=== PATIENT | female | born 1955 | race Caucasian/White ===

== ENCOUNTER 2024-07-26 21:42 | Emergency (ER) | payer OTHER, MEDICAID, SELFPAY ==
[2024-07-26] VITALS (30 sets, daily range): BP systolic 75–102; BP diastolic 46–61; PULSE 96–124; RESP 13–29; TEMP 37.3; O2SAT 92–99; BMI 23.2
--- NOTE | 2024-07-26 22:03 | DI.RAD.S_ITS ---
PROCEDURE: XR CHEST 1V INDICATIONS: chest pain TECHNIQUE: One view of the chest was acquired. COMPARISON: None. FINDINGS: Surgical changes and devices: Sternotomy. Surgical clips project over the mediastinum. Lungs and pleura: Lungs are clear. No pleural effusions or pneumothorax. Mediastinum: Mediastinal contours appear normal. Heart size is cardiomegaly. Bones and chest wall: No suspicious bony lesions. Overlying soft tissues appear unremarkable. IMPRESSION: No acute cardiopulmonary abnormality is seen. Cardiomegaly. Dictated by: Freddie Caruso M.D. on 07/26/2024 at 22:33 Approved by: Freddie Caruso M.D. on 07/26/2024 at 22:33
--- NOTE | 2024-07-26 22:03 | EKG_ITS ---
[place] [address] [address] [place] [id number] Test Date: 2024-07-26 Pat Name: Mone Erazo Department: [facility] Room: Gender: Female Tax Director: CRISTIN : 1955 Requested By: Order Number: [id number] Reading MD: Evens Washington Measurements Intervals [place] Rate: 122 P: 51 [place]: 148 QRS: -31 QRSD: 138 T: 140 QT: 334 QTc: 475 Interpretive Statements Sinus tachycardia Biatrial enlargement Left axis deviation Left ventricular hypertrophy with QRS widening and repolarization abnormality ( R in aVL , Sokolow-Yung , [place] product , [place] ) Electronically Signed On 07-27-2024 7:29:31 PST by Evens Washington
[2024-07-26 22:12] LABS: Add Manual Diff / Slide Review NO; Basophils Absolute Auto 100 /uL (0-100); Basophils Percent Auto 0.8 % (0-2); Eosinophils Absolute Auto 100 /uL (0-450); Hemoglobin 11.3 g/dL (12.0-16.0); INR 1.2 (0.9-1.3); Lymphocytes Absolute Auto 1800 /uL (1100-4500); Lymphocytes Percent Auto 21.2 % (25-40); Mean Corpuscular HGB Conc 30.5 % (30-36); Mean Corpuscular Hemoglobin 23.7 PG (26-34); Mean Corpuscular Volume 77.7 fL (80-100); Monocytes Absolute Auto 600 /uL (0-900); Monocytes Percent Auto 6.5 % (3-14); Neutrophils Absolute Auto 6000 /uL (1500-7000); Neutrophils Percent Auto 70.5 % (50-75); Platelet Count 283 X10^3/uL (150-400); Prothrombin Time 13.1 SECONDS (9.4-12.5); Red Blood Cell Count 4.76 X10^6/uL (4.0-5.2); Red Cell Distribution Width 19.6 % (11.6-14.8); White Blood Cell Count 8.6 X10^3/uL (4.5-11.0)
[2024-07-26 22:14] LABS: PTT Partial Thromboplastin Tim 31 SECONDS (25.1-36.5)
[2024-07-26 22:15] LABS: Alanine Aminotransferase 57 IU/L (<35); Albumin 3.8 g/dL (3.5-5.0); Albumin Globulin Ratio 1.3 (1.0-2.8); Alkaline Phosphatase 98 U/L (38-126); Aspartate Aminotransferase 49 IU/L (14-36); BUN Creatinine Ratio 32.6 (6-22); Bilirubin Total 0.7 mg/dL (0.2-1.3); Blood Urea Nitrogen 28 mg/dL (7-17); Calcium 8.4 mg/dL (8.4-10.2); Carbon Dioxide 27 mmol/L (22-32); Chloride 99 mmol/L (98-107); Creatine Kinase 47 U/L (30-135); Estimated Glomerular Filt Rate > 60 mL/min (>60); Globulin 2.9 g/dL (1.7-4.1); Glucose 179 mg/dL (80-110); HEMOLYSIS 46 (0-50); Lipase 34 U/L (23-300); Magnesium 1.8 mg/dL (1.6-2.3); Potassium 4.4 mmol/L (3.4-5.1); Sodium 130 mmol/L (137-145); Total Protein 6.7 g/dL (6.3-8.2)
[2024-07-26 22:27] LABS: NT-proBNP (BNP-Adult 18+) 14200 pg/mL (<125); Troponin I 0.056 ng/mL (0.01-0.034)
[2024-07-26] MEDS: ASPIRIN 81 MG CHEW TAB 324 MG PO (22:31)
[2024-07-26] MEDS: METOPROLOL TARTRATE 5 MG/5 ML INJ IV (22:34)
[2024-07-26] MEDS: ONDANSETRON 4 MG/2 ML INJ IV (22:45)
--- NOTE | 2024-07-26 22:47 | ED.CHESTPAIN ---
HPI - Chest Pain General Chief Complaint: Chest Pain Stated Complaint: CP Time Seen by Provider: 07/26/24 22:08 Source: EMS Mode of arrival: EMS History of Present Illness HPI narrative: 68-year-old female with history of coronary disease, prior single-vessel bypass in 2010, subsequent PCI to LAD in 2022, systolic heart failure LVEF 15%, history of LV thrombus on Eliquis, list hx of amphetamine use, hypertension, hyperlipidemia, anxiety, depression, bipolar disorder, fibromyalgia, homelessness presents by EMS for chest pain. History obtained from both patient and from medical records obtained from [facility] in [place]. Patient was discharged yesterday from [facility] after admission for chest pain. At time of discharge chart states that [facility] and just says she [facility] be on the street. Patient states that she was in [place] trying to find housing when she felt chest pain and called 911. Records from [facility] show severe ischemic cardiomyopathy, however at most recent admission patient was deemed not to be an interventional candidate, instead is goal-directed medical therapy. Related Data Home Medications Medication Instructions Recorded Confirmed acetaminophen 325 mg tablet 650 mg PO Q6H PRN Pain, Mild 07/26/24 07/26/24 apixaban 5 mg tablet 5 mg PO BID 07/26/24 07/26/24 aspirin 81 mg capsule,delayed 81 mg PO DAILY 07/26/24 07/26/24 release atorvastatin 80 mg tablet 80 mg PO DAILY 07/26/24 07/26/24 buspirone 15 mg tablet 15 mg PO BID 07/26/24 07/26/24 empagliflozin 10 mg tablet 10 mg PO DAILY 07/26/24 07/26/24 magnesium hydroxide 400 mg/5 mL 400 mg PO BEDTIME PRN Constipation 07/26/24 07/26/24 oral suspension nitroglycerin 0.4 mg sublingual 0.4 mg sublingual Q5-15M PRN Chest 07/26/24 07/26/24 tablet Pain nortriptyline 25 mg capsule 50 mg PO BID 07/26/24 07/26/24 omeprazole 20 mg tablet,delayed 20 mg PO DAILY 07/26/24 07/26/24 release ondansetron 4 mg disintegrating 4 mg PO Q6H PRN Nausea 07/26/24 07/26/24 tablet sacubitril 24 mg-valsartan 26 mg 1 tab PO BID 07/26/24 07/26/24 tablet spironolactone 25 mg tablet 25 mg PO DAILY 07/26/24 07/26/24 torsemide 20 mg tablet 80 mg PO DAILY 07/26/24 07/26/24 trazodone 50 mg tablet 100 mg PO BEDTIME PRN Insomnia 07/26/24 07/26/24 venlafaxine 75 mg tablet,extended 225 mg PO DAILY 07/26/24 07/26/24 release 24 hr Allergies Allergy/AdvReac Type Severity Reaction Status Date / Time No Known Drug Allergies Allergy Verified 07/26/24 21:46 Exam Initial Vital Signs Initial Vital Signs: Vital Signs Temperature 99.1 F 07/26/24 21:47 Pulse Rate 121 H 07/26/24 21:47 Respiratory Rate 20 07/26/24 21:47 Blood Pressure 90/61 07/26/24 21:47 Pulse Oximetry 99 07/26/24 21:47 Oxygen Delivery Method Room Air 07/26/24 21:47 Const: Awake, alert, appears chronically unwell Cardiac: tachycardia, regular rhythm RESP: unlabored, clear bilaterally, no wheezing Skin: Warm, Dry, intact, no rashes Neuro: AO x3, CN II-XII grossly intact, moves all extremities Course Orders Ordered: ED Orders 07/26/24 21:40 Complete Blood Count AUTO DIFF Stat Comprehensive Metabolic Panel Stat Lipase Stat Magnesium Stat NT-proBNP (BNP-Adult 18+) Stat PTT Partial Thromboplastin Jarek Stat Prothrombin Time INR Stat Troponin & CK Cardiac Panel Stat 07/26/24 21:55 Consult to CLOSET ORGANIZER - Materials Engineering Technician Stat 07/26/24 22:03 XR chest 1V Stat EKG-12 Lead Stat 07/26/24 23:13 Urine Drug Screen, Rapid Stat 07/27/24 00:15 Troponin I Stat 07/27/24 02:15 Trop I [Troponin I] Stat Discontinued Medications Aspirin (Aspirin 81 Mg Chew Tab) 324 mg PO NOW ONE Stop: 07/26/24 22:04 Last Admin: 07/26/24 22:31 Dose: 324 mg Documented By: KANDY Metoprolol Tartrate (Metoprolol Tartrate 5 Mg/5 Ml Inj) 5 mg IV Q5M [facility] Stop: 07/26/24 22:26 Last Admin: 07/26/24 22:34 Dose: 5 mg Documented By: KANDY Ondansetron HCl (Ondansetron 4 Mg/2 Ml Inj) 4 mg IV NOW ONE Stop: 07/26/24 22:43 Last Admin: 07/26/24 22:45 Dose: 4 mg Documented By: KANDY Vital Signs Vital signs: Vital Signs - 8 hr 07/26/24 21:47 07/26/24 22:31 07/26/24 22:39 Temperature 99.1 F Pulse Rate 121 H 124 H Respiratory Rate 20 29 H Blood Pressure 90/61 95/61 Pulse Oximetry 99 Oxygen Delivery Method Room Air 07/26/24 22:39 07/26/24 22:40 07/26/24 22:40 Temperature Pulse Rate 108 H 105 H Respiratory Rate 29 H 22 Blood Pressure 95/51 L Pulse Oximetry 94 94 Oxygen Delivery Method Room Air Room Air 07/26/24 22:45 07/26/24 22:45 07/26/24 22:47 Temperature Pulse Rate 99 H Respiratory Rate 22 Blood Pressure 86/49 L 79/50 L Pulse Oximetry 92 Oxygen Delivery Method 07/26/24 22:47 07/26/24 22:48 07/26/24 22:48 Temperature Pulse Rate 96 H 96 H Respiratory Rate 22 21 Blood Pressure 80/50 L Pulse Oximetry 97 97 Oxygen Delivery Method 07/26/24 22:50 07/26/24 22:50 07/26/24 22:52 Temperature Pulse Rate 96 H Respiratory Rate 14 Blood Pressure 75/46 L 79/46 L Pulse Oximetry 97 Oxygen Delivery Method 07/26/24 22:52 07/26/24 22:55 07/26/24 22:55 Temperature Pulse Rate 96 H 97 H Respiratory Rate 17 18 Blood Pressure 83/48 L Pulse Oximetry 98 98 Oxygen Delivery Method 07/26/24 22:57 07/26/24 22:57 07/26/24 23:00 Temperature Pulse Rate 97 H Respiratory Rate 13 Blood Pressure 86/51 L 84/53 L Pulse Oximetry 98 Oxygen Delivery Method 07/26/24 23:00 07/26/24 23:03 07/26/24 23:03 Temperature Pulse Rate 97 H 100 H Respiratory Rate 15 16 Blood Pressure 93/52 L Pulse Oximetry 97 96 Oxygen Delivery Method 07/26/24 23:20 07/26/24 23:21 07/26/24 23:21 Temperature Pulse Rate 104 H 104 H Respiratory Rate 15 14 Blood Pressure 90/56 L Pulse Oximetry 98 98 Oxygen Delivery Method 07/26/24 23:23 07/26/24 23:23 07/26/24 23:25 Temperature Pulse Rate 104 H Respiratory Rate 17 Blood Pressure 94/52 L 95/60 Pulse Oximetry 98 Oxygen Delivery Method 07/26/24 23:25 07/26/24 23:28 07/26/24 23:28 Temperature Pulse Rate 104 H 103 H Respiratory Rate 14 21 Blood Pressure 97/57 L Pulse Oximetry 97 99 Oxygen Delivery Method 07/26/24 23:30 07/26/24 23:30 07/26/24 23:33 Temperature Pulse Rate 103 H Respiratory Rate 14 Blood Pressure 98/60 97/61 Pulse Oximetry 98 Oxygen Delivery Method 07/26/24 23:33 07/26/24 23:35 07/26/24 23:35 Temperature Pulse Rate 104 H 104 H Respiratory Rate 18 18 Blood Pressure 98/56 L Pulse Oximetry 97 98 Oxygen Delivery Method 07/26/24 23:38 07/26/24 23:38 07/26/24 23:40 Temperature Pulse Rate 105 H Respiratory Rate 16 Blood Pressure 98/59 L 94/57 L Pulse Oximetry 98 Oxygen Delivery Method 07/26/24 23:40 07/26/24 23:43 07/26/24 23:43 Temperature Pulse Rate 104 H 104 H Respiratory Rate 16 17 Blood Pressure 97/55 L Pulse Oximetry 97 97 Oxygen Delivery Method 07/26/24 23:45 07/26/24 23:45 07/26/24 23:48 Temperature Pulse Rate 106 H Respiratory Rate 22 Blood Pressure 102/56 L 95/60 Pulse Oximetry 96 Oxygen Delivery Method 07/26/24 23:48 07/26/24 23:50 07/26/24 23:50 Temperature Pulse Rate 105 H 105 H Respiratory Rate 14 17 Blood Pressure 99/57 L Pulse Oximetry 98 97 Oxygen Delivery Method 07/26/24 23:53 07/26/24 23:53 07/26/24 23:55 Temperature Pulse Rate 106 H Respiratory Rate 23 Blood Pressure 99/58 L 87/55 L Pulse Oximetry 97 Oxygen Delivery Method 07/26/24 23:55 07/26/24 23:58 07/26/24 23:58 Temperature Pulse Rate 106 H 109 H Respiratory Rate 15 24 Blood Pressure 86/54 L Pulse Oximetry 93 96 Oxygen Delivery Method 07/27/24 00:00 07/27/24 00:03 07/27/24 00:03 Temperature Pulse Rate 109 H 109 H Respiratory Rate 34 H 35 H Blood Pressure 104/63 Pulse Oximetry 95 94 Oxygen Delivery Method 07/27/24 00:05 07/27/24 00:05 07/27/24 00:18 Temperature Pulse Rate 109 H 109 H Respiratory Rate 23 17 Blood Pressure 103/58 L Pulse Oximetry 97 96 Oxygen Delivery Method 07/27/24 00:18 07/27/24 00:30 07/27/24 00:30 Temperature Pulse Rate 109 H Respiratory Rate 19 Blood Pressure 108/59 L 98/56 L Pulse Oximetry 96 Oxygen Delivery Method 07/27/24 00:45 07/27/24 00:45 07/27/24 01:00 Temperature Pulse Rate 109 H 104 H Respiratory Rate 17 16 Blood Pressure 108/60 Pulse Oximetry 95 96 Oxygen Delivery Method Room Air 07/27/24 01:00 07/27/24 01:15 07/27/24 01:15 Temperature Pulse Rate 104 H Respiratory Rate 16 Blood Pressure 106/59 L 104/51 L Pulse Oximetry 93 Oxygen Delivery Method 07/27/24 01:30 07/27/24 01:30 07/27/24 01:45 Temperature Pulse Rate 101 H Respiratory Rate 18 Blood Pressure 94/60 87/65 L Pulse Oximetry 92 Oxygen Delivery Method 07/27/24 01:45 07/27/24 02:00 07/27/24 02:01 Temperature Pulse Rate 101 H 101 H Respiratory Rate 15 20 Blood Pressure 101/57 L Pulse Oximetry 93 93 Oxygen Delivery Method 07/27/24 02:01 07/27/24 02:15 07/27/24 02:15 Temperature Pulse Rate 101 H 102 H Respiratory Rate 14 23 Blood Pressure 98/60 Pulse Oximetry 93 93 Oxygen Delivery Method 07/27/24 02:30 07/27/24 02:31 07/27/24 02:31 Temperature Pulse Rate 102 H 102 H Respiratory Rate 15 16 Blood Pressure 105/56 L Pulse Oximetry 95 96 Oxygen Delivery Method 07/27/24 02:45 07/27/24 02:45 07/27/24 03:00 Temperature Pulse Rate 98 H Respiratory Rate 14 Blood Pressure 100/54 L 89/50 L Pulse Oximetry 95 Oxygen Delivery Method 07/27/24 03:00 Temperature Pulse Rate 97 H Respiratory Rate 14 Blood Pressure Pulse Oximetry 95 Oxygen Delivery Method MDM - Chest Pain Lab Data 07/26/24 21:40 07/26/24 21:40 Labs: Lab Results 07/26/24 07/26/24 07/27/24 Range/Units 21:40 23:13 00:15 WBC 8.6 (4.5-11.0) X10^3/uL RBC 4.76 (4.0-5.2) X10^6/uL Hgb 11.3 L (12.0-16.0) g/dL Hct 37.0 (36-46) % MCV 77.7 L (80-100) fL MCH 23.7 L (26-34) PG MCHC 30.5 (30-36) % RDW 19.6 H (11.6-14.8) % Plt Count 283 (150-400) X10^3/uL Neut % (Auto) 70.5 (50-75) % Lymph % (Auto) 21.2 L (25-40) % [place] % (Auto) 6.5 (3-14) % Eos % (Auto) 1.0 L (2-4) % Baso % (Auto) 0.8 (0-2) % Neut # (Auto) 6000 (1439-9678) /uL Lymph # (Auto) 1800 (8496-4493) /uL [place] # (Auto) 600 (0-900) /uL Eos # (Auto) 100 (0-450) /uL Baso # (Auto) 100 (0-100) /uL PT 13.1 H (9.4-12.5) SECONDS INR 1.2 (0.9-1.3) APTT 31 (25.1-36.5) SECONDS Sodium 130 L (137-145) mmol/L Potassium 4.4 (3.4-5.1) mmol/L Chloride 99 (98-107) mmol/L Carbon Dioxide 27 (22-32) mmol/L BUN 28 H (7-17) mg/dL Creatinine 0.86 (0.52-1.04) mg/dL Estimated GFR > 60 (>60) mL/min BUN/Creatinine Ratio 32.6 H (6-22) Glucose 179 H (80-110) mg/dL Calcium 8.4 (8.4-10.2) mg/dL Magnesium 1.8 (1.6-2.3) mg/dL Total Bilirubin 0.7 (0.2-1.3) mg/dL AST 49 H (14-36) IU/L ALT 57 H (<35) IU/L Alkaline Phosphatase 98 (38-126) U/L Total Creatine Kinase 47 (30-135) U/L Troponin I 0.056 H 0.071 H (0.01-0.034) ng/mL NT-Pro-B Natriuret Pep 89186 H (<125) pg/mL Total Protein 6.7 (6.3-8.2) g/dL Albumin 3.8 (3.5-5.0) g/dL Globulin 2.9 (1.7-4.1) g/dL Albumin/Globulin Ratio 1.3 (1.0-2.8) Lipase 34 (23-300) U/L U Opiates 300ng/mL cut Negative (Negative) Ur Oxycodone Screen Positive H (Negative) Urine Methadone Screen Negative (Negative) Ur Barbiturates Screen Negative (Negative) U Tricyclic Antidepress Positive H (Negative) Ur Phencyclidine Scrn Negative (Negative) Ur Amphetamines Screen Negative (Negative) U Methamphetamines Scrn Negative (Negative) Ur MDMA Scrn (Ecstasy) Negative (Negative) U Benzodiazepines Scrn Negative (Negative) Urine Cocaine Screen Negative (Negative) U Marijuana (THC) Screen Negative (Negative) Urine pH Normal (Normal) Urine Specific [place] Normal (Normal) Ur Creatinine Normal (Normal) 07/27/24 Range/Units 02:15 WBC (4.5-11.0) X10^3/uL RBC (4.0-5.2) X10^6/uL Hgb (12.0-16.0) g/dL Hct (36-46) % MCV (80-100) fL MCH (26-34) PG MCHC (30-36) % RDW (11.6-14.8) % Plt Count (150-400) X10^3/uL Neut % (Auto) (50-75) % Lymph % (Auto) (25-40) % [place] % (Auto) (3-14) % Eos % (Auto) (2-4) % Baso % (Auto) (0-2) % Neut # (Auto) (1514-6266) /uL Lymph # (Auto) (7707-6521) /uL [place] # (Auto) (0-900) /uL Eos # (Auto) (0-450) /uL Baso # (Auto) (0-100) /uL PT (9.4-12.5) SECONDS INR (0.9-1.3) APTT (25.1-36.5) SECONDS Sodium (137-145) mmol/L Potassium (3.4-5.1) mmol/L Chloride (98-107) mmol/L Carbon Dioxide (22-32) mmol/L BUN (7-17) mg/dL Creatinine (0.52-1.04) mg/dL Estimated GFR (>60) mL/min BUN/Creatinine Ratio (6-22) Glucose (80-110) mg/dL Calcium (8.4-10.2) mg/dL Magnesium (1.6-2.3) mg/dL Total Bilirubin (0.2-1.3) mg/dL AST (14-36) IU/L ALT (<35) IU/L Alkaline Phosphatase (38-126) U/L Total Creatine Kinase (30-135) U/L Troponin I 0.063 H (0.01-0.034) ng/mL NT-Pro-B Natriuret Pep (<125) pg/mL Total Protein (6.3-8.2) g/dL Albumin (3.5-5.0) g/dL Globulin (1.7-4.1) g/dL Albumin/Globulin Ratio (1.0-2.8) Lipase (23-300) U/L U Opiates 300ng/mL cut (Negative) Ur Oxycodone Screen (Negative) Urine Methadone Screen (Negative) Ur Barbiturates Screen (Negative) U Tricyclic Antidepress (Negative) Ur Phencyclidine Scrn (Negative) Ur Amphetamines Screen (Negative) U Methamphetamines Scrn (Negative) Ur MDMA Scrn (Ecstasy) (Negative) U Benzodiazepines Scrn (Negative) Urine Cocaine Screen (Negative) U Marijuana (THC) Screen (Negative) Urine pH (Normal) Urine Specific [place] (Normal) Ur Creatinine (Normal) Imaging Data Chest x-ray: Radiologist's Impression: PROCEDURE: XR CHEST 1V INDICATIONS: chest pain TECHNIQUE: One view of the chest was acquired. COMPARISON: None. FINDINGS: Surgical changes and devices: Sternotomy. Surgical clips project over the mediastinum. Lungs and pleura: Lungs are clear. No pleural effusions or pneumothorax. Mediastinum: Mediastinal contours appear normal. Heart size is cardiomegaly. Bones and chest wall: No suspicious bony lesions. Overlying soft tissues appear unremarkable. IMPRESSION: No acute cardiopulmonary abnormality is seen. Cardiomegaly. Dictated by: Freddie Caruso M.D. on 07/26/2024 at 22:33 Approved by: Freddie Caruso M.D. on 07/26/2024 at 22:33 ECG Data Interpretation: Sinus tachycardia at 122 beats per minute. When compared to outside EKG from July 22, 2024 ST depressions in V5 and V6 worse. No STEMI MDM Narrative Medical decision making narrative: Patient presenting for chest pain, just released yesterday from [facility] for chest pain. Records obtained from that hospitalization stay show patient had extensive workup including echocardiogram, Myoview stress test, and multiple imaging studies. It was determined that patient has severe ischemic cardiomyopathy, however due to multiple factors she was not a candidate for any intervention and goal is for maximal medical therapy. During previous hospitalization she was also evaluated for AICD placement, which she refused. At patient's last hospitalization she had high sensitivity troponin of greater than 200, per hour measurements this would be equivalent of greater than 0.2. Patient initially tachycardic on arrival. Concern was for possible underlying atrial fibrillation. Single dose of metoprolol brought heart rate down to closer to 100 beats per minute, this continued to be sinus rhythm without any evidence of atrial fibrillation. EKG shows slightly worsening ST depressions in lateral leads, these improved with rate control. Otherwise no change from previous EKG obtained at [facility] hospitalization. Case discussed with Dr. Sinclair of [facility] Cardiology. Case, vitals, EKG changes, lab work reviewed with business process consultant. Patient is not a candidate for intervention and would not benefit from hospitalization at this time. She should continue on her current medications, no changes advised. Patient monitored for several hours, troponins are stable, hemodynamically unchanged. No signs of volume overload or arrhythmia. Patient's presentation overall is improved compared to her previous hospitalization at [facility]. Patient was advised that she should continue to take all of her previous medications as prescribed. Patient is attempting to find housing in the area Discharge Plan Departure Patient Disposition: Home Clinical Impression: Chest pain, Homelessness unspecified, Heart failure with reduced ejection fraction due to coronary artery disease Instructions: DI for Chest Pain Activity Restrictions/Additional Instructions: Continue all of the medications you were told to take at [facility]. I spoke with the campus recruiting intern that you saw in [place] and there are no interventions to be done at this time. If your symptoms worsen feel free to come back to the ED for repeat evaluation Prescriptions: No Action atorvastatin 80 mg Tablet 80 mg PO DAILY acetaminophen 325 mg Tablet 650 mg PO Q6H PRN (Reason: Pain, Mild) torsemide 20 mg Tablet 80 mg PO DAILY trazodone 50 mg Tablet 100 mg PO BEDTIME PRN (Reason: Insomnia) spironolactone 25 mg Tablet 25 mg PO DAILY aspirin 81 mg Capsule,Delayed Release(Dr/Ec) 81 mg PO DAILY nortriptyline 25 mg Capsule 50 mg PO BID magnesium hydroxide 400 mg/5 mL Suspension 400 mg PO BEDTIME PRN (Reason: Constipation) nitroglycerin 0.4 mg Tablet, Sublingual 0.4 mg SUBLINGUAL Q5-15M PRN (Reason: Chest Pain) Rx Instructions: do not exceed 3 doses per episode ondansetron 4 mg Tablet,Disintegrating 4 mg PO Q6H PRN (Reason: Nausea) buspirone 15 mg Tablet 15 mg PO BID omeprazole 20 mg Tablet,Delayed Release (Dr/Ec) 20 mg PO DAILY venlafaxine 75 mg Tablet Extended Release 24hr 225 mg PO DAILY apixaban 5 mg Tablet 5 mg PO BID empagliflozin 10 mg Tablet 10 mg PO DAILY sacubitril-valsartan 24-26 mg Tablet 1 tab PO BID Stand Alone Forms: Patient Portal/API/Survey
--- NOTE | 2024-07-26 22:49 | PC.NURSE ---
Dr. Cartwright aware of current vital signs.
--- NOTE | 2024-07-26 22:53 | PC.NURSE ---
Dr. Cartwright at bedside
--- NOTE | 2024-07-26 23:23 | PC.NURSE ---
Pt states she feels like she needs to have a bowel movement. Pt assisted to restroom via wheel chair with 1 person assist and stand by. Pt unable to have bm at this time. Assisted back to ED stretcher. Placed on blood pressure, cardiac, resp, and pulse ox monitors with alarms on and audible. Call light within reach.
[2024-07-26 23:35] LABS: UR Morphine/Opiate cutoff 300 Negative (Negative); Ur Creatinine Normal (Normal); Ur Specific Gravity Normal (Normal); Urine Amphetamines Negative (Negative); Urine Barbiturates Negative (Negative); Urine Benzodiazepines Negative (Negative); Urine Cocaine Negative (Negative); Urine MDMA Negative (Negative); Urine Methadone Negative (Negative); Urine Methamphetamines Negative (Negative); Urine Oxycodone Positive (Negative); Urine Phencyclidine Negative (Negative); Urine Tetrahydrocannabinol Negative (Negative); Urine Tricyclic Antidepressant Positive (Negative); Urine pH Normal (Normal)
[2024-07-27] VITALS (17 sets, daily range): BP systolic 87–108; BP diastolic 50–65; PULSE 97–109; RESP 14–35; O2SAT 92–97
--- NOTE | 2024-07-27 00:18 | PC.NURSE ---
Repeat troponin drawn from left AC with 23g butterfly needle without complications.
[2024-07-27 00:43] LABS: Troponin I 0.071 ng/mL (0.01-0.034)
--- NOTE | 2024-07-27 01:01 | PC.NURSE ---
Pt resting quietly with eyes closed, resps even and not labored. No distress noted at this time. Pt remains connected to cardiac, resp, blood pressure, and pulse ox monitors with alarms on and audible. Call light within reach.
[2024-07-27 02:59] LABS: Troponin I 0.063 ng/mL (0.01-0.034)
== END 2024-07-27 03:25 | disposition home or self-care (01) ==
PROVIDERS: Emergency Provider Emergency Medicine
DX: I11.0 Hypertensive heart disease with heart failure (principal); R07.9 Chest pain, unspecified; I50.20 Unspecified systolic (congestive) heart failure; I25.10 Atherosclerotic heart disease of native coronary artery without angina pectoris; Z59.00 Homelessness unspecified; Z95.1 Presence of aortocoronary bypass graft
CPT/HCPCS: 36415; 71045; 80053; 80305; 82550; 83690; 83735; 83880; 84484; 85025; 85610; 85730; 93005; 96374; 96375; 99284; J2405

== ENCOUNTER 2024-08-01 14:56 | Emergency (ER) | payer OTHER, SELFPAY ==
[2024-08-01] VITALS (11 sets, daily range): BP systolic 97–123; BP diastolic 56–76; PULSE 109–127; RESP 16–37; TEMP 36.3–37; O2SAT 95–100; BMI 23.8
--- NOTE | 2024-08-01 17:44 | PC.NURSE ---
Pt states that she is feeling less anxious. Given ice chips and chocolate pudding. a&Ox4.
--- NOTE | 2024-08-01 17:58 | ED_ITS ---
HPI - Anxiety General Chief Complaint: Anxiety Stated Complaint: Anxiety Time Seen by Provider: 08/01/24 17:56 Source: patient Mode of arrival: EMS History of Present Illness HPI narrative: 68-year-old female with severe ischemic cardiomyopathy presents for panic attack. Patient was at [facility] assisted [facility] and states that she ?got into it? with 1 of the RNs at the facility. She states that she got very worked up and could not catch her breath, and felt like she was going to pass out. By the time of my arrival patient has been in the emergency department for several hours and states that she no longer feels anxious and she feels like her breathing is back to normal. Related Data Home Medications Medication Instructions Recorded Confirmed acetaminophen 325 mg tablet 650 mg PO Q6H PRN Pain, Mild 07/26/24 07/26/24 apixaban 5 mg tablet 5 mg PO BID 07/26/24 07/26/24 aspirin 81 mg capsule,delayed 81 mg PO DAILY 07/26/24 07/26/24 release atorvastatin 80 mg tablet 80 mg PO DAILY 07/26/24 07/26/24 buspirone 15 mg tablet 15 mg PO BID 07/26/24 07/26/24 empagliflozin 10 mg tablet 10 mg PO DAILY 07/26/24 07/26/24 magnesium hydroxide 400 mg/5 mL 400 mg PO BEDTIME PRN Constipation 07/26/24 07/26/24 oral suspension nitroglycerin 0.4 mg sublingual 0.4 mg sublingual Q5-15M PRN Chest 07/26/24 07/26/24 tablet Pain nortriptyline 25 mg capsule 50 mg PO BID 07/26/24 07/26/24 omeprazole 20 mg tablet,delayed 20 mg PO DAILY 07/26/24 07/26/24 release ondansetron 4 mg disintegrating 4 mg PO Q6H PRN Nausea 07/26/24 07/26/24 tablet sacubitril 24 mg-valsartan 26 mg 1 tab PO BID 07/26/24 07/26/24 tablet spironolactone 25 mg tablet 25 mg PO DAILY 07/26/24 07/26/24 torsemide 20 mg tablet 80 mg PO DAILY 07/26/24 07/26/24 trazodone 50 mg tablet 100 mg PO BEDTIME PRN Insomnia 12/18/24 12/18/24 venlafaxine 75 mg tablet,extended 225 mg PO DAILY 07/26/24 07/26/24 release 24 hr Allergies Allergy/AdvReac Type Severity Reaction Status Date / Time No Known Drug Allergies Allergy Verified 07/26/24 21:46 Patient History Social History Smoking Status: Former smoker Smoking Status: Former smoker Exam Initial Vital Signs Initial Vital Signs: Vital Signs Pulse Rate 126 H 08/01/24 15:00 Blood Pressure 123/76 08/01/24 15:00 Pulse Oximetry 98 08/01/24 15:00 Const: Awake, alert, frail, no distress, eating chocolate pudding Cardiac:tachycardia, regular rhythm RESP: unlabored, clear bilaterally, no wheezing Skin: Warm, Dry, intact, no rashes Neuro: AO x3, CN II-XII grossly intact, moves all extremities Course Vital Signs Vital signs: Vital Signs - 8 hr 08/01/24 17:30 08/01/24 17:40 08/01/24 17:40 Temperature Pulse Rate 111 H 111 H Respiratory Rate 33 H 37 H Blood Pressure 97/56 L Pulse Oximetry 95 Oxygen Delivery Method 08/01/24 18:52 Temperature 98.6 F Pulse Rate 112 H Respiratory Rate 22 Blood Pressure 97/56 L Pulse Oximetry 100 Oxygen Delivery Method Room Air MDM - Anxiety Differential Diagnosis Differential diagnosis: Likely hyperventilation, panic disorder and acute anxiety MDM Narrative Medical decision making narrative: Panic attack with the shortness of breath. Upon my evaluation patient had been in the emergency department for several hours. She was resting comfortably, she was given ice chips and chocolate pudding. No longer feeling anxious or short of breath. Saturating well on room air. Tachycardia present, patient states that her resting heart rate is usually elevated. She says she is afraid that fluid may be building up again because she hasn't been allowed to weigh herself. patient instructed that she may take an additional dose of her torsemide this evening, however clinically patient appears euvolemic. Discharge Plan Departure Patient Disposition: Home Clinical Impression: Acute anxiety Instructions: DI for Anxiety -- Adult Activity Restrictions/Additional Instructions: Take an extra dose of your water pill tonight before bed. Continue all of your other medications as prescribed Prescriptions: No Action atorvastatin 80 mg Tablet 80 mg PO DAILY acetaminophen 325 mg Tablet 650 mg PO Q6H PRN (Reason: Pain, Mild) torsemide 20 mg Tablet 80 mg PO DAILY trazodone 50 mg Tablet 100 mg PO BEDTIME PRN (Reason: Insomnia) spironolactone 25 mg Tablet 25 mg PO DAILY aspirin 81 mg Capsule,Delayed Release(Dr/Ec) 81 mg PO DAILY nortriptyline 25 mg Capsule 50 mg PO BID magnesium hydroxide 400 mg/5 mL Suspension 400 mg PO BEDTIME PRN (Reason: Constipation) nitroglycerin 0.4 mg Tablet, Sublingual 0.4 mg SUBLINGUAL Q5-15M PRN (Reason: Chest Pain) Rx Instructions: do not exceed 3 doses per episode ondansetron 4 mg Tablet,Disintegrating 4 mg PO Q6H PRN (Reason: Nausea) buspirone 15 mg Tablet 15 mg PO BID omeprazole 20 mg Tablet,Delayed Release (Dr/Ec) 20 mg PO DAILY venlafaxine 75 mg Tablet Extended Release 24hr 225 mg PO DAILY apixaban 5 mg Tablet 5 mg PO BID empagliflozin 10 mg Tablet 10 mg PO DAILY sacubitril-valsartan 24-26 mg Tablet 1 tab PO BID Stand Alone Forms: Patient Portal/API/Survey
== END 2024-08-01 18:54 | disposition home or self-care (01) ==
PROVIDERS: Emergency Provider Emergency Medicine
DX: F41.0 Panic disorder [episodic paroxysmal anxiety] (principal)
CPT/HCPCS: 99281

== ENCOUNTER → 2024-08-23 08:10 | Outpatient (ROUT) | payer OTHER, SELFPAY ==
[2024-08-23 08:40] LABS: BUN Creatinine Ratio 24.3 (6-22); Blood Urea Nitrogen 27 mg/dL (7-17); Carbon Dioxide 30 mmol/L (22-32); Chloride 100 mmol/L (98-107); Estimated Glomerular Filt Rate 54 mL/min (>60); Glucose 98 mg/dL (80-110); HEMOLYSIS < 15 (0-50); Potassium 4.4 mmol/L (3.4-5.1); Sodium 136 mmol/L (137-145)
== END ==
PROVIDERS: Visit Provider Nurse Practitioner
DX: I42.0 Dilated cardiomyopathy (principal); I50.22 Chronic systolic (congestive) heart failure
CPT/HCPCS: 36415; 80048

== ENCOUNTER 2024-09-01 19:59 | Emergency (ER) | payer OTHER, MEDICAID, SELFPAY ==
[2024-09-01] VITALS (11 sets, daily range): BP systolic 92–116; BP diastolic 51–70; PULSE 66–112; RESP 17–40; TEMP 36.9; O2SAT 82–100; BMI 26.9
--- NOTE | 2024-09-01 20:12 | EKG_ITS ---
[facility] [address] [place] [address] Test Date: 2024-09-01 Pat Name: Mone Erazo Department: Room: Gender: Female Linderman Operator: MELODIE : 1955 Requested By: Order Number: [id number] Reading MD: Evens Washington Measurements Intervals [place] Rate: 110 P: 52 HI: 156 QRS: -30 QRSD: 140 T: 135 QT: 374 QTc: 506 Interpretive Statements Sinus tachycardia Right atrial enlargement Left axis deviation Left ventricular hypertrophy with QRS widening and repolarization abnormality ( R in aVL , Sokolow-Yung , Leslie product , Romhilt-S[place] ) Electronically Signed On 09-04-2024 9:41:01 PST by Evens Washington
--- NOTE | 2024-09-01 20:13 | EKG_ITS ---
[facility] [address] [address] [place] [id number] Test Date: 2024-09-01 Pat Name: Mone Erazo Department: Room: Gender: Female Administrative Assistant: MELODIE : 1955 Requested By: Order Number: [id number] Reading MD: Evens Washington Measurements Intervals [place] Rate: 111 P: 38 PA: 144 QRS: -30 QRSD: 140 T: 136 QT: 378 QTc: 514 Interpretive Statements Sinus tachycardia with frequent premature ventricular complexes Left axis deviation Left ventricular hypertrophy with QRS widening and repolarization abnormality ( R in aVL , Sokolow-Yung , Micha product , Romhilt-S[place] ) Electronically Signed On 09-04-2024 9:41:08 PST by Evens Washington
--- NOTE | 2024-09-01 20:27 | DI.RAD.S_ITS ---
PROCEDURE: XR CHEST 1V INDICATIONS: Shortness of breath TECHNIQUE: One view of the chest was acquired. COMPARISON: [facility], CR, XR CHEST 1V, 07/26/2024, 22:05. FINDINGS: Surgical changes and devices: Sternal wires. Lungs and pleura: Lungs are clear. No pleural effusions or pneumothorax. Mediastinum: Mediastinal contours appear normal. Heart size is enlarged. Bones and chest wall: No suspicious bony lesions. Overlying soft tissues appear unremarkable. IMPRESSION: No acute pulmonary process. Dictated by: Melody Anglin M.D. on 09/01/2024 at 21:00 Approved by: Melody Anglin M.D. on 09/01/2024 at 21:00
[2024-09-01 20:42] LABS: Lactate (Lactic Acid) 1.8 mmol/L (0.7-2.1)
[2024-09-01 20:43] LABS: Alanine Aminotransferase 24 IU/L (<35); Albumin 4.4 g/dL (3.5-5.0); Albumin Globulin Ratio 1.4 (1.0-2.8); Alkaline Phosphatase 91 U/L (38-126); Aspartate Aminotransferase 30 IU/L (14-36); BUN Creatinine Ratio 25.8 (6-22); Bilirubin Total 0.5 mg/dL (0.2-1.3); Blood Urea Nitrogen 33 mg/dL (7-17); Carbon Dioxide 29 mmol/L (22-32); Chloride 99 mmol/L (98-107); Estimated Glomerular Filt Rate 46 mL/min (>60); Globulin 3.1 g/dL (1.7-4.1); Glucose 128 mg/dL (80-110); HEMOLYSIS 17 (0-50); Sodium 139 mmol/L (137-145); Total Protein 7.5 g/dL (6.3-8.2)
[2024-09-01 20:49] LABS: Add Manual Diff / Slide Review NO; Basophils Absolute Auto 0 /uL (0-100); Basophils Percent Auto 0.5 % (0-2); Eosinophils Absolute Auto 100 /uL (0-450); Eosinophils Percent Auto 1.9 % (2-4); Hematocrit 40.5 % (36-46); Hemoglobin 12.6 g/dL (12.0-16.0); Lymphocytes Absolute Auto 2100 /uL (1100-4500); Lymphocytes Percent Auto 29.9 % (25-40); Mean Corpuscular HGB Conc 31.2 % (30-36); Mean Corpuscular Hemoglobin 24.2 PG (26-34); Mean Corpuscular Volume 77.7 fL (80-100); Monocytes Absolute Auto 600 /uL (0-900); Monocytes Percent Auto 8.9 % (3-14); Neutrophils Absolute Auto 4200 /uL (1500-7000); Neutrophils Percent Auto 58.8 % (50-75); Platelet Count 307 X10^3/uL (150-400); Red Blood Cell Count 5.21 X10^6/uL (4.0-5.2); Red Cell Distribution Width 19.3 % (11.6-14.8); White Blood Cell Count 7.1 X10^3/uL (4.5-11.0)
[2024-09-01 20:51] LABS: INR 1.2 (0.9-1.3); Prothrombin Time 13.9 SECONDS (9.4-12.5)
[2024-09-01 20:54] LABS: NT-proBNP (BNP-Adult 18+) 7440 pg/mL (<125); Troponin I 0.032 ng/mL (0.01-0.034)
[2024-09-01] MEDS: FUROSEMIDE 40 MG/4 ML VIAL IV (20:59)
--- NOTE | 2024-09-01 21:12 | ED_ITS ---
HPI - SOB/Dyspnea General Chief Complaint: Shortness of Breath/Dyspnea Stated Complaint: SOB x1 wk Time Seen by Provider: 09/01/24 20:56 Source: EMS Mode of arrival: EMS History of Present Illness HPI Narrative: 68-year-old female with history of coronary artery disease status post single- vessel stenting 1993 in [place], chronic Eliquis anticoagulation, history of congestive heart failure, reports ejection fraction 10%, followed by [facility] building illuminating engineer, 2 weeks ago seen in the office of Dr. Gallo by MACO Lares, when her Entresto dose was increased, with follow up plan to be seen in clinic again November 2024, current resident at [facility] to ensure her medications given on a regular basis, however she had missed a few days of torsemide at facility when her medication refill supply had not arrived to her care facility, feeling more short of breath today. Denies chest pain. Denies nausea or vomiting. Denies diaphoresis. No fevers, cough, chills, urinary frequency, abdominal discomfort. Social history: No longer homeless, current lead residing [facility] [place] Related Data Home Medications Medication Instructions Recorded Confirmed acetaminophen 325 mg tablet 650 mg PO Q6H PRN Pain, Mild 07/26/24 07/26/24 apixaban 5 mg tablet 5 mg PO BID 07/26/24 07/26/24 aspirin 81 mg capsule,delayed 81 mg PO DAILY 07/26/24 07/26/24 release atorvastatin 80 mg tablet 80 mg PO DAILY 07/26/24 07/26/24 buspirone 15 mg tablet 15 mg PO BID 07/26/24 07/26/24 empagliflozin 10 mg tablet 10 mg PO DAILY 07/26/24 07/26/24 magnesium hydroxide 400 mg/5 mL 400 mg PO BEDTIME PRN Constipation 07/26/24 07/26/24 oral suspension nitroglycerin 0.4 mg sublingual 0.4 mg sublingual Q5-15M PRN Chest 07/26/24 07/26/24 tablet Pain nortriptyline 25 mg capsule 50 mg PO BID 07/26/24 07/26/24 omeprazole 20 mg tablet,delayed 20 mg PO DAILY 07/26/24 07/26/24 release ondansetron 4 mg disintegrating 4 mg PO Q6H PRN Nausea 07/26/24 07/26/24 tablet sacubitril 24 mg-valsartan 26 mg 1 tab PO BID 07/26/24 07/26/24 tablet spironolactone 25 mg tablet 25 mg PO DAILY 07/26/24 07/26/24 torsemide 20 mg tablet 80 mg PO DAILY 07/26/24 07/26/24 trazodone 50 mg tablet 100 mg PO BEDTIME PRN Insomnia 07/26/24 07/26/24 venlafaxine 75 mg tablet,extended 225 mg PO DAILY 07/26/24 07/26/24 release 24 hr Allergies Allergy/AdvReac Type Severity Reaction Status Date / Time No Known Drug Allergies Allergy Verified 07/26/24 21:46 Patient History Social History Smoking Status: Former smoker Smoking Status: Former smoker Exam Narrative Exam Narrative: GENERAL: Well-developed patient, in mild distress. HEAD: Atraumatic. Normocephalic. EYES: Pupils equal round and reactive. Extraocular motions intact. No scleral icterus. No injection or drainage. ENT: Nose without bleeding, purulent drainage. Throat without erythema, tonsillar hypertrophy or exudate. Airway patent. NECK: Trachea midline. Non tender CARDIOVASCULAR: Regular rate and rhythm without murmurs, gallops, or rubs. Well-healed sternal scar RESPIRATORY: Clear to auscultation. Breath sounds equal bilaterally. No wheezes, rales, or rhonchi. GASTROINTESTINAL: Abdomen soft, non-tender, nondistended. EXTREMITIES: No edema or joint tenderness. No lower extremity edema present, feet well perfused, warm BACK: Nontender without deformity or crepitance. No flank tenderness. NEURO: AOx3. Motor functions grossly nonfocal SKIN: No rash or erythema of visible areas Initial Vital Signs Initial Vital Signs: Vital Signs Temperature 98.4 F 09/01/24 20:03 Pulse Rate 80 09/01/24 20:03 Respiratory Rate 18 09/01/24 20:03 Blood Pressure 105/51 L 09/01/24 20:03 Pulse Oximetry 100 09/01/24 20:03 Oxygen Delivery Method Room Air 09/01/24 20:03 Course Orders Ordered: ED Orders 09/01/24 20:27 XR chest 1V Stat EKG-12 Lead Stat RT Consult Eval and Treat NOW 09/01/24 20:30 Complete Blood Count AUTO DIFF Stat Comprehensive Metabolic Panel Stat Lactate (Lactic Acid) Stat NT-proBNP (BNP-Adult 18+) Stat Prothrombin Time INR Stat Troponin I Stat Discontinued Medications Furosemide (Furosemide 40 Mg/4 Ml Vial) 40 mg IV NOW ONE Stop: 09/01/24 20:57 Last Admin: 09/01/24 20:59 Dose: 40 mg Documented By: Vital Signs Vital signs: Vital Signs - 8 hr 09/01/24 20:03 09/01/24 20:07 09/01/24 20:08 Temperature 98.4 F Pulse Rate 80 66 Respiratory Rate 18 Blood Pressure 105/51 L 106/51 L Pulse Oximetry 100 87 L Oxygen Delivery Method Room Air 09/01/24 20:08 09/01/24 20:30 09/01/24 20:33 Temperature Pulse Rate 112 H 104 H 105 H Respiratory Rate 20 38 H Blood Pressure Pulse Oximetry 90 L 96 82 L Oxygen Delivery Method 09/01/24 20:33 09/01/24 21:00 09/01/24 21:00 Temperature Pulse Rate 105 H Respiratory Rate 30 H Blood Pressure 103/64 92/51 L Pulse Oximetry 94 Oxygen Delivery Method 09/01/24 21:30 09/01/24 21:30 09/01/24 22:00 Temperature Pulse Rate 105 H 104 H Respiratory Rate 26 H 32 H Blood Pressure 99/57 L Pulse Oximetry 97 94 Oxygen Delivery Method 09/01/24 22:00 09/01/24 22:30 09/01/24 22:30 Temperature Pulse Rate 101 H Respiratory Rate 37 H Blood Pressure 94/63 102/57 L Pulse Oximetry 95 Oxygen Delivery Method 09/01/24 23:00 09/01/24 23:00 09/01/24 23:16 Temperature Pulse Rate 103 H 111 H Respiratory Rate 40 H 17 Blood Pressure 103/59 L Pulse Oximetry 92 96 Oxygen Delivery Method Room Air 09/01/24 23:16 Temperature Pulse Rate Respiratory Rate Blood Pressure 116/70 Pulse Oximetry Oxygen Delivery Method MDM - SOB/Dyspnea Lab Data Attestation: I reviewed the patient's lab results. Lab results narrative: White blood cell count 7100, hemoglobin 12.6, platelets adequate. Basic metabolic panel unremarkable. Liver functions unremarkable. BNP 7448, less than available comparison 99545. Troponin 0.032 low noted. 09/01/24 20:30 09/01/24 20:30 Labs: Lab Results 09/01/24 Range/Units 20:30 WBC 7.1 (4.5-11.0) X10^3/uL RBC 5.21 H (4.0-5.2) X10^6/uL Hgb 12.6 (12.0-16.0) g/dL Hct 40.5 (36-46) % MCV 77.7 L (80-100) fL MCH 24.2 L (26-34) PG MCHC 31.2 (30-36) % RDW 19.3 H (11.6-14.8) % Plt Count 307 (150-400) X10^3/uL Neut % (Auto) 58.8 (50-75) % Lymph % (Auto) 29.9 (25-40) % [place] % (Auto) 8.9 (3-14) % Eos % (Auto) 1.9 L (2-4) % Baso % (Auto) 0.5 (0-2) % Neut # (Auto) 4200 (2621-9966) /uL Lymph # (Auto) 2100 (0509-3464) /uL [place] # (Auto) 600 (0-900) /uL Eos # (Auto) 100 (0-450) /uL Baso # (Auto) 0 (0-100) /uL PT 13.9 H (9.4-12.5) SECONDS INR 1.2 (0.9-1.3) Sodium 139 (137-145) mmol/L Potassium 4.0 (3.4-5.1) mmol/L Chloride 99 (98-107) mmol/L Carbon Dioxide 29 (22-32) mmol/L BUN 33 H (7-17) mg/dL Creatinine 1.28 H (0.52-1.04) mg/dL Estimated GFR 46 L (>60) mL/min BUN/Creatinine Ratio 25.8 H (6-22) Glucose 128 H (80-110) mg/dL Lactate 1.8 (0.7-2.1) mmol/L Calcium 9.0 (8.4-10.2) mg/dL Total Bilirubin 0.5 (0.2-1.3) mg/dL AST 30 (14-36) IU/L ALT 24 (<35) IU/L Alkaline Phosphatase 91 (38-126) U/L Troponin I 0.032 (0.01-0.034) ng/mL NT-Pro-B Natriuret Pep 7440 H (<125) pg/mL Total Protein 7.5 (6.3-8.2) g/dL Albumin 4.4 (3.5-5.0) g/dL Globulin 3.1 (1.7-4.1) g/dL Albumin/Globulin Ratio 1.4 (1.0-2.8) Imaging Data Chest x-ray: Radiologist's Impression: Close Chest X-Ray (Signed) Melody Anglin - 09/01/24 Launch?Image [address] [address] XRay Report Signed Patient: Mone Erazo MR#: [id number] : 1955 Acct:[id number] Age/Sex: 68 / F Date of Service: 09/01/24 Loc: ED Accession Number: [id number] Procedure: XR chest 1V Ordering Provider: Angel Dalal MD PROCEDURE: XR CHEST 1V INDICATIONS: Shortness of breath TECHNIQUE: One view of the chest was acquired. COMPARISON: [facility], , XR CHEST 1V, 07/26/2024, 22:05. FINDINGS: Surgical changes and devices: Sternal wires. Lungs and pleura: Lungs are clear. No pleural effusions or pneumothorax. Mediastinum: Mediastinal contours appear normal. Heart size is enlarged. Bones and chest wall: No suspicious bony lesions. Overlying soft tissues appear unremarkable. IMPRESSION: No acute pulmonary process. Dictated by: Melody Anglin M.D. on 09/01/2024 at 21:00 Approved by: Melody Anglin M.D. on 09/01/2024 at 21:00 ECG Data Attestation: I personally reviewed and interpreted this ECG as follows: Interpretation: Sinus tachycardia with ventricular rate 111. LVH with QRS widening and repolarization abnormality similar to prior comparison study on 07/26/2024. [place] 144, QRS 140, QTC 514. MDM Narrative Medical decision making narrative: 68-year-old female with history of congestive heart failure, reports EF 10%, apparently without AICD or Dfib vest, taking chronic Eliquis anticoagulation, recent missed doses of torsemide that had not been provided to her assisted care facility, feels some shortness of breath. No oxygen requirement, no lower extremity edema obvious, lungs clear, no respiratory distress. Chest radiograph screening study negative. EKG abnormal but unchanged from prior study recent months. Troponin negative. BNP elevated but not as elevated as some measurements in the past. Trial of IV Lasix, frequent urination afterwards, symptomatically improved. Was able to walk around ambulatory flat surface in the emergency department. She would like to return to her [facility] care facility. She will contact her cardiology office on Wednesday to coordinate close follow up care. Return precautions discussed. Discharge Plan Departure Patient Disposition: Home Clinical Impression: Shortness of Breath, History of chronic CHF Activity Restrictions/Additional Instructions: History of congestive heart failure, recent missed doses of oral torsemide at your [facility] care facility, feeling some shortness of breath. EKG abnormal but unchanged from prior comparison. Serum blood testing results reassuring. Chest x-ray no acute changes per Radiology report. IV Lasix given, you urinated subsequently a number of times, and felt some improvement, and less sensation of swelling to the ankles which did not look grossly swollen on my examination. You able to ambulate in the department, improved. Continue your current medication regimen. Call the office of building illuminating engineer Dr. Gallo to discuss earlier follow up appointment from your scheduled November 2024 planned visit. Return here or to the nearest emergency department for any change worsening symptoms or any concerns prior Prescriptions: No Action atorvastatin 80 mg Tablet 80 mg PO DAILY acetaminophen 325 mg Tablet 650 mg PO Q6H PRN (Reason: Pain, Mild) torsemide 20 mg Tablet 80 mg PO DAILY trazodone 50 mg Tablet 100 mg PO BEDTIME PRN (Reason: Insomnia) spironolactone 25 mg Tablet 25 mg PO DAILY aspirin 81 mg Capsule,Delayed Release(Dr/Ec) 81 mg PO DAILY nortriptyline 25 mg Capsule 50 mg PO BID magnesium hydroxide 400 mg/5 mL Suspension 400 mg PO BEDTIME PRN (Reason: Constipation) nitroglycerin 0.4 mg Tablet, Sublingual 0.4 mg SUBLINGUAL Q5-15M PRN (Reason: Chest Pain) Rx Instructions: do not exceed 3 doses per episode ondansetron 4 mg Tablet,Disintegrating 4 mg PO Q6H PRN (Reason: Nausea) buspirone 15 mg Tablet 15 mg PO BID omeprazole 20 mg Tablet,Delayed Release (Dr/Ec) 20 mg PO DAILY venlafaxine 75 mg Tablet Extended Release 24hr 225 mg PO DAILY apixaban 5 mg Tablet 5 mg PO BID empagliflozin 10 mg Tablet 10 mg PO DAILY sacubitril-valsartan 24-26 mg Tablet 1 tab PO BID Referrals: Petros Gallo MD [Physician] - Stand Alone Forms: Patient Portal/API/Survey
--- NOTE | 2024-09-01 23:22 | PC.NURSE ---
pt ambulated from room 7 to room [address] back to room O2 sat @ 87%, pt only able to speak one word at a time able to rest and O2 sat return to normal, Dr Dalal informed with no new orders noted.
== END 2024-09-01 23:27 | disposition home or self-care (01) ==
PROVIDERS: Emergency Provider Emergency Medicine
DX: R06.02 Shortness of breath (principal); Z86.79 Personal history of other diseases of the circulatory system; Z79.01 Long term (current) use of anticoagulants; R00.0 Tachycardia, unspecified
CPT/HCPCS: 71045; 80053; 83605; 83880; 84484; 85025; 85610; 93005; 96374; 99284; J1940

== ENCOUNTER 2024-09-10 20:39 | Emergency (ER) | payer OTHER, MEDICAID, SELFPAY ==
[2024-09-10 20:41] VITALS: BP 103/59; PULSE 113; RESP 18; TEMP 36.3; O2SAT 97; BMI 24.6
--- NOTE | 2024-09-10 23:22 | ED_ITS ---
HPI - Anxiety General Chief Complaint: Anxiety Stated Complaint: anxiety Time Seen by Provider: 09/10/24 20:43 Source: patient and EMS Mode of arrival: EMS History of Present Illness HPI narrative: 68-year-old female with history of ischemic cardiomyopathy, EF 10% presents by EMS from [facility] for anxiety attack. Patient states that she has been out of her venlafaxine for the last 3 days. She states that this is caused her vision to fussy over and her brain to feel anxious. In the ER room patient states that while she was anxious she felt her heart rate go up and she felt short of breath, but now that she has been in the emergency department these have returned to normal and all she has is a slight headache from her panic attack. She was requesting something for anxiety as well as her normal venlafaxine dose. She says that the living facility should get more venlafaxine for her tomorrow, but she needs a dose tonight. Related Data Home Medications Medication Instructions Recorded Confirmed acetaminophen 325 mg tablet 650 mg PO Q6H PRN Pain, Mild 07/26/24 09/08/24 apixaban 5 mg tablet 5 mg PO BID 07/26/24 09/08/24 aspirin 81 mg capsule,delayed 81 mg PO DAILY 07/26/24 09/08/24 release atorvastatin 80 mg tablet 80 mg PO DAILY 07/26/24 09/08/24 buspirone 15 mg tablet 15 mg PO BID 07/26/24 09/08/24 empagliflozin 10 mg tablet 10 mg PO DAILY 07/26/24 09/08/24 magnesium hydroxide 400 mg/5 mL 400 mg PO BEDTIME PRN Constipation 07/26/24 09/08/24 oral suspension nitroglycerin 0.4 mg sublingual 0.4 mg sublingual Q5-15M PRN Chest 07/26/24 09/08/24 tablet Pain nortriptyline 25 mg capsule 50 mg PO BID 07/26/24 09/08/24 omeprazole 20 mg tablet,delayed 20 mg PO DAILY 07/26/24 09/08/24 release ondansetron 4 mg disintegrating 4 mg PO Q6H PRN Nausea 07/26/24 09/08/24 tablet sacubitril 24 mg-valsartan 26 mg 1 tab PO BID 07/26/24 09/08/24 tablet spironolactone 25 mg tablet 25 mg PO DAILY 07/26/24 09/08/24 torsemide 20 mg tablet 80 mg PO DAILY 07/26/24 09/08/24 trazodone 50 mg tablet 100 mg PO BEDTIME PRN Insomnia 07/26/24 09/08/24 venlafaxine 75 mg tablet,extended 225 mg PO DAILY 07/26/24 09/08/24 release 24 hr Previous Rx's Medication Instructions Recorded clotrimazole 1 % topical cream 1 applic topical TID #45 grams 09/08/24 Allergies Allergy/AdvReac Type Severity Reaction Status Date / Time No Known Drug Allergies Allergy Verified 09/08/24 13:20 Patient History Social History Smoking Status: Former smoker Smoking Status: Former smoker Exam Initial Vital Signs Initial Vital Signs: Vital Signs Temperature 97.4 F L 09/10/24 20:41 Pulse Rate 113 H 09/10/24 20:41 Respiratory Rate 18 09/10/24 20:41 Blood Pressure 103/59 L 09/10/24 20:41 Pulse Oximetry 97 09/10/24 20:41 Oxygen Delivery Method Room Air 09/10/24 20:41 Const: Awake, alert, appears chronically unwell Cardiac: Mild tachycardia, regular rhythm RESP: unlabored, clear bilaterally, no wheezing MSK: No edema, full range of motion, pulses equal Skin: Warm, Dry, intact, no rashes Neuro: AO x3, CN II-XII grossly intact, moves all extremities Course Orders Ordered: ED Orders 09/10/24 23:21 EKG-12 Lead Stat Discontinued Medications Acetaminophen (Acetaminophen 325 Mg Tablet) 975 mg PO NOW ONE Stop: 09/10/24 23:22 Last Admin: 09/10/24 23:38 Dose: 975 mg Documented By: SB Lorazepam (Lorazepam 0.5 Mg Tablet) 0.5 mg PO NOW ONE Stop: 09/10/24 23:22 Last Admin: 09/10/24 23:38 Dose: 0.5 mg Documented By: SB Venlafaxine HCl (Venlafaxine Er 75 Mg Cap) 225 mg PO NOW ONE Stop: 09/10/24 23:22 Last Admin: 09/10/24 23:50 Dose: 225 mg Documented By: SB Vital Signs Vital signs: Vital Signs - 8 hr 09/10/24 20:41 09/11/24 00:02 Temperature 97.4 F L Pulse Rate 113 H 104 H Respiratory Rate 18 20 Blood Pressure 103/59 L 121/59 L Pulse Oximetry 97 96 Oxygen Delivery Method Room Air Room Air MDM - Anxiety MDM Narrative Medical decision making narrative: Patient has been out of her venlafaxine for several days and reports having a panic attack at her living facility. In the ER she was calm, cooperative, in no acute distress. Has chronic mild tachycardia with heart rate usually between 100-110 beats per minute. Patient was given a very small p.o. antianxiety medication as well as her usual dose of venlafaxine. Patient also requested a Tylenol for a mild headache, which she states is common for her after getting panic attacks. Discharged back to her facility in stable condition. Discharge Plan Departure Patient Disposition: Home Clinical Impression: Acute anxiety Instructions: DI for Anxiety -- Adult Activity Restrictions/Additional Instructions: Resume taking your venlafaxine tomorrow as regularly prescribed. If you continue to experience anxiety attacks I would recommend talking to a health counselor or a psychiatrist. Prescriptions: No Action clotrimazole 1 % cream 1 applic topical TID Qty: 45 0RF atorvastatin 80 mg Tablet 80 mg PO DAILY acetaminophen 325 mg Tablet 650 mg PO Q6H PRN (Reason: Pain, Mild) torsemide 20 mg Tablet 80 mg PO DAILY trazodone 50 mg Tablet 100 mg PO BEDTIME PRN (Reason: Insomnia) spironolactone 25 mg Tablet 25 mg PO DAILY aspirin 81 mg Capsule,Delayed Release(Dr/Ec) 81 mg PO DAILY nortriptyline 25 mg Capsule 50 mg PO BID magnesium hydroxide 400 mg/5 mL Suspension 400 mg PO BEDTIME PRN (Reason: Constipation) nitroglycerin 0.4 mg Tablet, Sublingual 0.4 mg SUBLINGUAL Q5-15M PRN (Reason: Chest Pain) Rx Instructions: do not exceed 3 doses per episode ondansetron 4 mg Tablet,Disintegrating 4 mg PO Q6H PRN (Reason: Nausea) buspirone 15 mg Tablet 15 mg PO BID omeprazole 20 mg Tablet,Delayed Release (Dr/Ec) 20 mg PO DAILY venlafaxine 75 mg Tablet Extended Release 24hr 225 mg PO DAILY apixaban 5 mg Tablet 5 mg PO BID empagliflozin 10 mg Tablet 10 mg PO DAILY sacubitril-valsartan 24-26 mg Tablet 1 tab PO BID Referrals: Miscellaneous,Doctor, MD [Primary Care Provider] - Stand Alone Forms: Patient Portal/API/Survey
--- NOTE | 2024-09-10 23:35 | EKG_ITS ---
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
[2024-09-10] MEDS: LORazepam 0.5 MG TABLET PO (23:38)
[2024-09-10] MEDS: ACETAMINOPHEN 325 MG TABLET 975 MG PO (23:38)
[2024-09-10] MEDS: VENLAFAXINE ER 75 MG CAP 225 MG PO (23:50)
[2024-09-11 00:02] VITALS: BP 121/59; PULSE 104; RESP 20; O2SAT 96
== END 2024-09-10 23:54 | disposition home or self-care (01) ==
PROVIDERS: Emergency Provider Emergency Medicine
DX: F41.9 Anxiety disorder, unspecified (principal); R00.0 Tachycardia, unspecified; T43.216A Underdosing of selective serotonin and norepinephrine reuptake inhibitors, initial encounter; R51.9 Headache, unspecified; Z86.79 Personal history of other diseases of the circulatory system
CPT/HCPCS: 93005; 99283

== ENCOUNTER → 2024-09-13 08:01 | Outpatient (ROUT) | payer OTHER, MEDICAID, SELFPAY ==
[2024-09-13 08:24] LABS: BUN Creatinine Ratio 35.5 (6-22); Blood Urea Nitrogen 38 mg/dL (7-17); Carbon Dioxide 27 mmol/L (22-32); Chloride 101 mmol/L (98-107); Estimated Glomerular Filt Rate 57 mL/min (>60); Glucose 75 mg/dL (80-110); HEMOLYSIS 28 (0-50); Potassium 4.4 mmol/L (3.4-5.1); Sodium 136 mmol/L (137-145)
== END ==
PROVIDERS: Visit Provider Nurse Practitioner
DX: I42.0 Dilated cardiomyopathy (principal); I50.22 Chronic systolic (congestive) heart failure
CPT/HCPCS: 36415; 80048

== ENCOUNTER 2024-09-26 18:47 | Emergency (ER) | payer OTHER, MEDICAID, SELFPAY ==
[2024-09-26 18:58] VITALS: BP 97/56; PULSE 105; RESP 18; TEMP 36.7; O2SAT 98; BMI 25.4
--- NOTE | 2024-09-26 19:02 | DI.RAD.S_ITS ---
PROCEDURE: XR CHEST 1V INDICATIONS: chest pain TECHNIQUE: One view of the chest was acquired. COMPARISON: [facility], CR, XR CHEST 1 VIEW, 09/17/2024, 19:17. [facility], CR, XR CHEST 1V, 09/01/2024, 20:43. [facility], CR, XR CHEST 1V, 07/26/2024, 22:05. FINDINGS: Surgical changes and devices: Post median sternotomy and CABG. Lungs and pleura: Prominent pulmonary markings. No pleural effusions or pneumothorax. Mediastinum: Mediastinal contours appear normal. Marked cardiomegaly. Bones and chest wall: No suspicious bony lesions. Overlying soft tissues appear unremarkable. IMPRESSION: Suspect pulmonary vasculature engorgement. Marked cardiomegaly. Dictated by: Puneet Eller M.D. on 09/26/2024 at 19:49 Approved by: Puneet Eller M.D. on 09/26/2024 at 19:50
--- NOTE | 2024-09-26 19:02 | EKG_ITS ---
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
[2024-09-26 19:14] LABS: Add Manual Diff / Slide Review NO; Basophils Absolute Auto 100 /uL (0-100); Basophils Percent Auto 0.6 % (0-2); Eosinophils Absolute Auto 500 /uL (0-450); Eosinophils Percent Auto 5.6 % (2-4); Hematocrit 39.2 % (36-46); Hemoglobin 12.2 g/dL (12.0-16.0); Lymphocytes Absolute Auto 1200 /uL (1100-4500); Lymphocytes Percent Auto 13.3 % (25-40); Mean Corpuscular HGB Conc 31.2 % (30-36); Mean Corpuscular Hemoglobin 24.2 PG (26-34); Mean Corpuscular Volume 77.6 fL (80-100); Monocytes Absolute Auto 400 /uL (0-900); Neutrophils Absolute Auto 6700 /uL (1500-7000); Neutrophils Percent Auto 75.5 % (50-75); Platelet Count 327 X10^3/uL (150-400); Red Blood Cell Count 5.05 X10^6/uL (4.0-5.2); Red Cell Distribution Width 18.6 % (11.6-14.8); White Blood Cell Count 8.9 X10^3/uL (4.5-11.0)
[2024-09-26 19:16] LABS: INR 1.3 (0.9-1.3); Prothrombin Time 14.7 SECONDS (9.4-12.5)
[2024-09-26 19:19] LABS: PTT Partial Thromboplastin Tim 36 SECONDS (25.1-36.5)
[2024-09-26 19:22] LABS: Alanine Aminotransferase 49 IU/L (<35); Albumin 4.2 g/dL (3.5-5.0); Albumin Globulin Ratio 1.4 (1.0-2.8); Alkaline Phosphatase 80 U/L (38-126); Aspartate Aminotransferase 36 IU/L (14-36); BUN Creatinine Ratio 18.5 (6-22); Bilirubin Total 0.4 mg/dL (0.2-1.3); Blood Urea Nitrogen 24 mg/dL (7-17); Calcium 9.1 mg/dL (8.4-10.2); Carbon Dioxide 31 mmol/L (22-32); Chloride 102 mmol/L (98-107); Creatine Kinase 81 U/L (30-135); Estimated Glomerular Filt Rate 45 mL/min (>60); Glucose 95 mg/dL (80-110); HEMOLYSIS 44 (0-50); Lipase 261 U/L (23-300); Magnesium 2.1 mg/dL (1.6-2.3); Potassium 4.7 mmol/L (3.4-5.1); Sodium 141 mmol/L (137-145); Total Protein 7.2 g/dL (6.3-8.2)
[2024-09-26 19:33] LABS: NT-proBNP (BNP-Adult 18+) 8160 pg/mL (<125); Troponin I 0.034 ng/mL (0.01-0.034)
[2024-09-26] MEDS: ONDANSETRON 4 MG/2 ML INJ IV (19:35)
[2024-09-26 20:11] VITALS: BP 91/54; PULSE 109; RESP 16; O2SAT 96
[2024-09-26 20:37] VITALS: BP 93/54; PULSE 108; RESP 16; O2SAT 95
[2024-09-26 22:14] VITALS: BP 113/67; PULSE 109; RESP 16; O2SAT 97
[2024-09-26] MEDS: ACETAMINOPHEN 325 MG TABLET 975 MG PO (22:14)
[2024-09-26 23:16] VITALS: BP 100/59; PULSE 111; RESP 16; O2SAT 96
[2024-09-27 00:03] LABS: Troponin I 0.031 ng/mL (0.01-0.034)
== END 2024-09-27 00:36 | disposition left against medical advice (07) ==
PROVIDERS: Emergency Provider Emergency Medicine
DX: R07.9 Chest pain, unspecified (principal); I51.7 Cardiomegaly
CPT/HCPCS: 71045; 80053; 82550; 83690; 83735; 83880; 84484; 85025; 85610; 85730; 93005; 93010; 99284; J2405

== ENCOUNTER → 2024-10-04 08:10 | Outpatient (ROUT) | payer OTHER, MEDICAID, SELFPAY ==
[2024-10-04 09:13] LABS: BUN Creatinine Ratio 28.7 (6-22); Blood Urea Nitrogen 29 mg/dL (7-17); Calcium 8.9 mg/dL (8.4-10.2); Carbon Dioxide 25 mmol/L (22-32); Chloride 103 mmol/L (98-107); Estimated Glomerular Filt Rate > 60 mL/min (>60); Glucose 125 mg/dL (80-110); HEMOLYSIS < 15 (0-50); Potassium 3.5 mmol/L (3.4-5.1); Sodium 137 mmol/L (137-145)
== END ==
PROVIDERS: Visit Provider Nurse Practitioner Gerontology
DX: I50.9 Heart failure, unspecified (principal)
CPT/HCPCS: 36415; 80048

== ENCOUNTER 2024-10-19 20:39 | Observation (INO) | payer OTHER, MEDICAID, SELFPAY ==
--- NOTE | 2024-10-19 20:45 | EKG_ITS ---
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
[2024-10-19 20:56] VITALS: BP 115/66; PULSE 105; RESP 15; TEMP 36.6; O2SAT 98; BMI 25.9
--- NOTE | 2024-10-19 21:37 | DI.RAD.S_ITS ---
PROCEDURE: XR CHEST 1V INDICATIONS: Shortness of breath TECHNIQUE: One view of the chest was acquired. COMPARISON: [facility], CR, XR CHEST 1V, 09/26/2024, 19:04. [facility], CR, XR CHEST 1V, 09/01/2024, 20:43. FINDINGS AND IMPRESSION: Mildly prominent interstitium likely edema in the setting of moderate cardiomegaly. Sternotomy wires and mediastinal surgical changes. No pleural effusions. Degenerative osseous findings and calcific tendinopathy. Dictated by: Richard Caldwell M.D. on 10/19/2024 at 21:57 Approved by: Richard Caldwell M.D. on 10/19/2024 at 21:58
[2024-10-19 21:44] LABS: Add Manual Diff / Slide Review NO; Basophils Absolute Auto 100 /uL (0-100); Basophils Percent Auto 0.6 % (0-2); Eosinophils Absolute Auto 0 /uL (0-450); Eosinophils Percent Auto 0.6 % (2-4); Hematocrit 37.1 % (36-46); Hemoglobin 11.7 g/dL (12.0-16.0); Lymphocytes Absolute Auto 1300 /uL (1100-4500); Lymphocytes Percent Auto 17.1 % (25-40); Mean Corpuscular HGB Conc 31.5 % (30-36); Mean Corpuscular Hemoglobin 23.9 PG (26-34); Mean Corpuscular Volume 76.1 fL (80-100); Monocytes Absolute Auto 500 /uL (0-900); Monocytes Percent Auto 6.1 % (3-14); Neutrophils Absolute Auto 5900 /uL (1500-7000); Neutrophils Percent Auto 75.6 % (50-75); Platelet Count 277 X10^3/uL (150-400); Red Blood Cell Count 4.87 X10^6/uL (4.0-5.2); Red Cell Distribution Width 18.6 % (11.6-14.8); White Blood Cell Count 7.8 X10^3/uL (4.5-11.0)
[2024-10-19 21:46] LABS: INR 2.4 (0.9-1.3); Prothrombin Time 26.1 SECONDS (9.4-12.5)
[2024-10-19 21:50] LABS: Alanine Aminotransferase 36 IU/L (<35); Albumin 4.3 g/dL (3.5-5.0); Albumin Globulin Ratio 1.4 (1.0-2.8); Alkaline Phosphatase 105 U/L (38-126); Aspartate Aminotransferase 44 IU/L (14-36); BUN Creatinine Ratio 23.9 (6-22); Bilirubin Total 0.9 mg/dL (0.2-1.3); Blood Urea Nitrogen 26 mg/dL (7-17); Calcium 9.6 mg/dL (8.4-10.2); Carbon Dioxide 22 mmol/L (22-32); Chloride 102 mmol/L (98-107); Estimated Glomerular Filt Rate 55 mL/min (>60); Glucose 124 mg/dL (80-110); HEMOLYSIS < 15 (0-50); Sodium 134 mmol/L (137-145); Total Protein 7.3 g/dL (6.3-8.2)
[2024-10-19 21:51] LABS: Lactate (Lactic Acid) 2.4 mmol/L (0.7-2.1); Potassium 5.4 mmol/L (3.4-5.1)
[2024-10-19 22:02] LABS: NT-proBNP (BNP-Adult 18+) 18200 pg/mL (<125); Troponin I 0.043 ng/mL (0.01-0.034)
[2024-10-19] MEDS: ONDANSETRON 4 MG/2 ML INJ IV (22:11)
[2024-10-19] MEDS: FUROSEMIDE 40 MG/4 ML VIAL IV (22:11)
--- NOTE | 2024-10-19 22:11 | ED.SOB ---
HPI - SOB/Dyspnea General Chief Complaint: Shortness of Breath/Dyspnea Stated Complaint: CHF Time Seen by Provider: 10/19/24 22:05 Source: patient and EMS Mode of arrival: EMS History of Present Illness HPI Narrative: 69-year-old female with a past medical history of hypertension, ischemic cardiomyopathy with ejection fraction 10% presents with EMS from [facility] for evaluation of shortness of breath. Patient states that she has also been feeling slightly nauseous the whole week. She states that she has been having worsening bilateral lower extremity edema consistent with her known history of CHF she states that she did see her PCP who change some of her medications and has not gotten some of these new medications as well. She states that she was having some chest pain earlier but this has since resolved. Patient was given full-dose aspirin prior to arrival by the facility otherwise patient not complaining of any other symptoms at this time. Patient does take. 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 5.4 but without any peaked T-waves/EKG abnormalities. Given patient with significantly elevated BNP dyspnea with conversation will admit patient for diuresis. Related Data Home Medications Medication Instructions Recorded Confirmed acetaminophen 325 mg tablet 650 mg PO Q6H PRN Pain, Mild 07/26/24 10/19/24 buspirone 15 mg tablet 15 mg PO BID 07/26/24 10/19/24 empagliflozin 10 mg tablet 10 mg PO DAILY 07/26/24 10/19/24 magnesium hydroxide 400 mg/5 mL 400 mg PO BEDTIME PRN Constipation 07/26/24 10/19/24 oral suspension nitroglycerin 0.4 mg sublingual 0.4 mg sublingual Q5-15M PRN Chest 07/26/24 10/19/24 tablet Pain nortriptyline 25 mg capsule 50 mg PO BEDTIME 07/26/24 10/19/24 omeprazole 20 mg tablet,delayed 20 mg PO DAILY 07/26/24 10/19/24 release ondansetron 4 mg disintegrating 4 mg PO Q6H PRN Nausea 07/26/24 10/19/24 tablet spironolactone 25 mg tablet 25 mg PO DAILY 07/26/24 10/19/24 torsemide 20 mg tablet 60 mg PO DAILY 07/26/24 10/19/24 trazodone 50 mg tablet 150 mg PO BEDTIME PRN Insomnia 07/26/24 10/19/24 venlafaxine 75 mg tablet,extended 225 mg PO DAILY 07/26/24 10/19/24 release 24 hr albuterol sulfate 90 mcg/actuation 2 puff inhalation Q4H PRN Wheezing 10/19/24 10/19/24 aerosol inhaler apixaban 5 mg tablet (Eliquis) 5 mg PO BID 10/19/24 10/19/24 aspirin 81 mg tablet,delayed 81 mg PO DAILY 10/19/24 10/19/24 release diclofenac sodium 1 % topical gel 2 g topical QID 10/19/24 10/19/24 sacubitril 24 mg-valsartan 26 mg 1 tab BID 10/19/24 10/19/24 tablet (Entresto) Allergies Allergy/AdvReac Type Severity Reaction Status Date / Time divalproex sodium AdvReac Verified 10/19/24 21:10 [From Depakote] metoprolol AdvReac Nausea Verified 10/19/24 21:10 sertraline [From Zoloft] AdvReac Nausea Verified 10/19/24 21:10 sumatriptan AdvReac Palpitation Verified 10/19/24 21:10 s Review of Systems Review of Systems Narrative: General: Positive weight gain, swelling lower extremity HEENT: Denies headache, eye drainage, eye irritation, head trauma, sore throat, voice change Cardiovascular: Denies any chest pain, palpitations, tachycardia Respiratory: Positive shortness of breath with exertion, denies cough wheeze stridor GI/: Denies any abdominal pain, nausea, vomiting, diarrhea, bright red blood per rectum, melanotic stools, urinary frequency, urinary retention, dysuria, hematuria MSK: Denies any joint pain, muscle pains, swelling Skin: Denies any rashes, lesions, discoloration Neuro: Denies any headache, lightheadedness, dizziness, fainting, weakness Psych: Denies SI/HI Patient History Social History Smoking Status: Former smoker Smoking Status: Former smoker Exam Narrative Exam Narrative: General: Cooperative, comfortable, well-developed, not in acute distress HEENT: Normocephalic, atraumatic, PERRLA, normal sclera, eyelids normal, Neck: Active full range of motion, atraumatic Chest: Normal to inspection, negative crepitus, no overlying erythema ecchymosis Respiratory: Patient dyspneic with conversation, however she is not in acute respiratory distress Cardiology: Regular rate rhythm negative gallop, murmur, rubs GI/: Normal to inspection, soft, nonrigid, no tenderness to palpation, exam deferred MSK: Full range of active range of motion of all 4 extremities, atraumatic Skin: No rashes lesions noted Neuro: Alert awake oriented x3, moves all 4 extremities spontaneously, cranial nerves intact, able to answer all questions appropriately follows commands appropriately Psych: Cooperative, negative suicidal or homicidal ideations Initial Vital Signs Initial Vital Signs: Vital Signs Temperature 97.9 F 10/19/24 20:56 Pulse Rate 105 H 10/19/24 20:56 Respiratory Rate 15 10/19/24 20:56 Blood Pressure 115/66 10/19/24 20:56 Pulse Oximetry 98 10/19/24 20:56 Oxygen Delivery Method Room Air 10/19/24 20:56 Course Orders Ordered: ED Orders 10/19/24 20:45 EKG-12 Lead Routine 10/19/24 21:12 Complete Blood Count AUTO DIFF Stat Comprehensive Metabolic Panel Stat Lactate (Lactic Acid) Stat NT-proBNP (BNP-Adult 18+) Stat Prothrombin Time INR Stat Troponin I Stat 10/19/24 21:37 XR chest 1V Stat EKG-12 Lead Stat Measure peak expiratory flow ONCE RT Consult Eval and Treat NOW 10/19/24 23:15 Trop I [Troponin I] Stat Discontinued Medications Furosemide (Furosemide 40 Mg/4 Ml Vial) 40 mg IV NOW ONE Stop: 10/19/24 22:06 Last Admin: 10/19/24 22:11 Dose: 40 mg Documented By: SHANNAN Ondansetron HCl (Ondansetron 4 Mg/2 Ml Inj) 4 mg IV NOW ONE Stop: 10/19/24 22:06 Last Admin: 10/19/24 22:11 Dose: 4 mg Documented By: SHANNAN Vital Signs Vital signs: Vital Signs - 8 hr 10/19/24 20:56 Temperature 97.9 F Pulse Rate 105 H Respiratory Rate 15 Blood Pressure 115/66 Pulse Oximetry 98 Oxygen Delivery Method Room Air MDM - SOB/Dyspnea Differential Diagnosis Differential diagnosis: Likely congestive heart failure, community acquired pneumonia, asthma with exacerbation and other (Electrolyte abnormality, ACS) Lab Data 10/19/24 21:12 10/19/24 21:12 Labs: Lab Results 10/19/24 Range/Units 21:12 WBC 7.8 (4.5-11.0) X10^3/uL RBC 4.87 (4.0-5.2) X10^6/uL Hgb 11.7 L (12.0-16.0) g/dL Hct 37.1 (36-46) % MCV 76.1 L (80-100) fL MCH 23.9 L (26-34) PG MCHC 31.5 (30-36) % RDW 18.6 H (11.6-14.8) % Plt Count 277 (150-400) X10^3/uL Neut % (Auto) 75.6 H (50-75) % Lymph % (Auto) 17.1 L (25-40) % [place] % (Auto) 6.1 (3-14) % Eos % (Auto) 0.6 L (2-4) % Baso % (Auto) 0.6 (0-2) % Neut # (Auto) 5900 (9069-4325) /uL Lymph # (Auto) 1300 (9058-3301) /uL [place] # (Auto) 500 (0-900) /uL Eos # (Auto) 0 (0-450) /uL Baso # (Auto) 100 (0-100) /uL PT 26.1 H (9.4-12.5) SECONDS INR 2.4 H (0.9-1.3) Sodium 134 L (137-145) mmol/L Potassium 5.4 H (3.4-5.1) mmol/L Chloride 102 (98-107) mmol/L Carbon Dioxide 22 (22-32) mmol/L BUN 26 H (7-17) mg/dL Creatinine 1.09 H (0.52-1.04) mg/dL Estimated GFR 55 L (>60) mL/min BUN/Creatinine Ratio 23.9 H (6-22) Glucose 124 H (80-110) mg/dL Lactate 2.4 H (0.7-2.1) mmol/L Calcium 9.6 (8.4-10.2) mg/dL Total Bilirubin 0.9 (0.2-1.3) mg/dL AST 44 H (14-36) IU/L ALT 36 H (<35) IU/L Alkaline Phosphatase 105 (38-126) U/L Troponin I 0.043 H (0.01-0.034) ng/mL NT-Pro-B Natriuret Pep 93159 H (<125) pg/mL Total Protein 7.3 (6.3-8.2) g/dL Albumin 4.3 (3.5-5.0) g/dL Globulin 3.0 (1.7-4.1) g/dL Albumin/Globulin Ratio 1.4 (1.0-2.8) Imaging Data Chest x-ray: Radiologist's Impression: [address] [address] XRay Report Signed Patient: Mone Erazo MR#: [id number] : 1955 Acct:[id number] Age/Sex: 69 / F Date of Service: 10/19/24 Loc: ED Accession Number: [id number] Procedure: XR chest 1V Ordering Provider: Peter Cooper D.O. PROCEDURE: XR CHEST 1V INDICATIONS: Shortness of breath TECHNIQUE: One view of the chest was acquired. COMPARISON: [facility], CR, XR CHEST 1V, 09/26/2024, 19:04. [facility], CR, XR CHEST 1V, 09/01/2024, 20:43. FINDINGS AND IMPRESSION: Mildly prominent interstitium likely edema in the setting of moderate cardiomegaly. Sternotomy wires and mediastinal surgical changes. No pleural effusions. Degenerative osseous findings and calcific tendinopathy. ECG Data Interpretation: EKG interpreted ED physician sinus tachycardia at 106 beats per minute QTC 499 left axis deviation, occasional PVC noted nonspecific ST changes no STEMI MDM Narrative Medical decision making narrative: Patient is a 69-year-old female with a history of hypertension, ischemic cardiomyopathy with ejection fraction 10%, presents from [facility] for worsening swelling to extremities and shortness of breath. 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 Patient is dyspneic with conversation, patient BNP significantly elevated at 18,200. We will give patient dose of Lasix, chest x-ray with moderate prominent interstitium likely edema in the setting of moderate cardiomegaly but no pleural effusion 2318: The patient's management plan was discussed Dr. Kapadia, who agrees to admit the patient to their service and assumes care of this patient at this time. Full admission orders will be placed by the primary team. Discharge Plan Departure Patient Disposition: Admitted as Observation Clinical Impression: CHF (congestive heart failure) Prescriptions: No Action acetaminophen 325 mg Tablet 650 mg PO Q6H PRN (Reason: Pain, Mild) torsemide 20 mg Tablet 60 mg PO DAILY Rx Instructions: to start this dose tomorrow 10/20/24 trazodone 50 mg Tablet 150 mg PO BEDTIME PRN (Reason: Insomnia) spironolactone 25 mg Tablet 25 mg PO DAILY nortriptyline 25 mg Capsule 50 mg PO BEDTIME magnesium hydroxide 400 mg/5 mL Suspension 400 mg PO BEDTIME PRN (Reason: Constipation) nitroglycerin 0.4 mg Tablet, Sublingual 0.4 mg SUBLINGUAL Q5-15M PRN (Reason: Chest Pain) Rx Instructions: do not exceed 3 doses per episode ondansetron 4 mg Tablet,Disintegrating 4 mg PO Q6H PRN (Reason: Nausea) buspirone 15 mg Tablet 15 mg PO BID omeprazole 20 mg Tablet,Delayed Release (Dr/Ec) 20 mg PO DAILY venlafaxine 75 mg Tablet Extended Release 24hr 225 mg PO DAILY empagliflozin 10 mg Tablet 10 mg PO DAILY sacubitril-valsartan [Entresto] 24-26 mg Tablet 1 tab BID Rx Instructions: just prescribed today 10/19/24 has not started yet aspirin 81 mg tablet,delayed release (DR/EC) 81 mg PO DAILY albuterol sulfate 90 mcg/actuation HFA aerosol inhaler 2 puff inhalation Q4H PRN (Reason: Wheezing) diclofenac sodium 1 % Gel 2 g TOPICAL QID Rx Instructions: apply to single elbow, wrist or hand; for hand includes palm/fingers/back of hand Eliquis 5 mg tablet 5 mg PO BID Referrals: Miscellaneous,Doctor, MD [Primary Care Provider] -
[2024-10-19 23:17] LABS: Reflexed Lactate in 2 Hours Y
[2024-10-19 23:35] LABS: Lactate 2HR (Lactic Acid Rflx) 2.6 mmol/L (0.7-2.1)
--- NOTE | 2024-10-19 23:41 | P.HP_ITS ---
History of Present Illness History of Present Illness Date Patient Seen: 10/19/24 Time Patient Seen: 23:00 Chief complaint: CHF Narrative: 69 y/o resident of [facility], with PMH of ischemic cardiomyopathy and PE, presented with complains on worsening shortness of breath, leg edemas and generalized weakness. She had recent adjustments of cardiac medications but not clear what was changed. She did not change her diet. Diagnosed with CHF exacerbations and placed in observation for controlled diuresis on telemetry monitoring. [facility] Social History Smoking Status: Former smoker Meds Home Medications and Allergies Home Medications Medication Instructions Recorded Confirmed Type acetaminophen 325 mg tablet 650 mg PO Q6H PRN Pain, Mild 07/26/24 10/19/24 History buspirone 15 mg tablet 15 mg PO BID 07/26/24 10/19/24 History empagliflozin 10 mg tablet 10 mg PO DAILY 07/26/24 10/19/24 History magnesium hydroxide 400 mg/5 mL 400 mg PO BEDTIME PRN Constipation 07/26/24 10/19/24 History oral suspension nitroglycerin 0.4 mg sublingual 0.4 mg sublingual Q5-15M PRN Chest 07/26/24 10/19/24 History tablet Pain nortriptyline 25 mg capsule 50 mg PO BEDTIME 07/26/24 10/19/24 History omeprazole 20 mg tablet,delayed 20 mg PO DAILY 07/26/24 10/19/24 History release ondansetron 4 mg disintegrating 4 mg PO Q6H PRN Nausea 07/26/24 10/19/24 History tablet spironolactone 25 mg tablet 25 mg PO DAILY 07/26/24 10/19/24 History torsemide 20 mg tablet 60 mg PO DAILY 07/26/24 10/19/24 History trazodone 50 mg tablet 150 mg PO BEDTIME PRN Insomnia 07/26/24 10/19/24 History venlafaxine 75 mg tablet,extended 225 mg PO DAILY 07/26/24 10/19/24 History release 24 hr albuterol sulfate 90 mcg/actuation 2 puff inhalation Q4H PRN Wheezing 10/19/24 10/19/24 History aerosol inhaler apixaban 5 mg tablet (Eliquis) 5 mg PO BID 10/19/24 10/19/24 History aspirin 81 mg tablet,delayed 81 mg PO DAILY 10/19/24 10/19/24 History release diclofenac sodium 1 % topical gel 2 g topical QID 10/19/24 10/19/24 History sacubitril 24 mg-valsartan 26 mg 1 tab BID 10/19/24 10/19/24 History tablet (Entresto) Allergies Allergy/AdvReac Type Severity Reaction Status Date / Time divalproex sodium AdvReac Verified 10/19/24 21:10 [From Depakote] metoprolol AdvReac Nausea Verified 10/19/24 21:10 sertraline [From Zoloft] AdvReac Nausea Verified 10/19/24 21:10 sumatriptan AdvReac Palpitation Verified 10/19/24 21:10 s Review of Systems Review of Systems Narrative: General - weakness CVS - w/o chest pain. RS - short of breath GI - w/o nausea or pain Exam Vital Signs (past 8 hours): - 10/19/24 20:56 Temperature 97.9 F Pulse Rate 105 H Respiratory Rate 15 Blood Pressure 115/66 Pulse Oximetry 98 Oxygen Delivery Method Room Air Oxygen Delivery Method Room Air Narrative Exam Narrative: General - in no distress HEENT - normocephalic CVS - RRR RS - Objective ECG Impression: Sinus tachycardia 104 with occasional premature ventricular complexes Right atrial enlargement Left axis deviation Imaging Chest x-ray: My impression: Mild pulmonary edema, cardiomegaly Radiologist's impression: Mildly prominent interstitium likely edema in the setting of moderate cardiomegaly. Sternotomy wires and mediastinal surgical changes. No pleural effusions. Labs 10/19/24 21:12 10/19/24 21:12 Labs: Laboratory Results - last 24 hr 10/19/24 10/19/24 21:12 23:13 WBC 7.8 RBC 4.87 Hgb 11.7 L Hct 37.1 MCV 76.1 L MCH 23.9 L MCHC 31.5 RDW 18.6 H Plt Count 277 Neut % (Auto) 75.6 H Lymph % (Auto) 17.1 L [place] % (Auto) 6.1 Eos % (Auto) 0.6 L Baso % (Auto) 0.6 Neut # (Auto) 5900 Lymph # (Auto) 1300 [place] # (Auto) 500 Eos # (Auto) 0 Baso # (Auto) 100 PT 26.1 H INR 2.4 H Sodium 134 L Potassium 5.4 H Chloride 102 Carbon Dioxide 22 BUN 26 H Creatinine 1.09 H Estimated GFR 55 L BUN/Creatinine Ratio 23.9 H Glucose 124 H Lactate 2.4 H 2.6 H Calcium 9.6 Total Bilirubin 0.9 AST 44 H ALT 36 H Alkaline Phosphatase 105 Troponin I 0.043 H NT-Pro-B Natriuret Pep 79044 H Total Protein 7.3 Albumin 4.3 Globulin 3.0 Albumin/Globulin Ratio 1.4 Assessment & Plan Assessment and plan (1) Acute on chronic HFrEF (heart failure with reduced ejection fraction): Status: Acute (2) Depression: Status: Acute (3) Pulmonary embolism: Status: Acute (4) GERD (gastroesophageal reflux disease): Status: Acute Plan Acute on chronic HFrEF / Ischemic cardiomyopathy - Lasix iv - Jardiance - at home on Entresto - Is/Os - BMP monitoring - ASA, prn NTG - w/o angina PE - Eliquis Depression / Anxiety - Effexor, amitriptyline, Trazodone - Buspar GERD - Protonix Time-Based Coding :: [TOTAL MINUTES] spent with patient and on the chart (including review of chart, obtaining history, exam, reviewing outside data, placing orders, documenting exam and treatment plan, and counseling patient) on [DATE].
[2024-10-19 23:48] LABS: Troponin I 0.044 ng/mL (0.01-0.034)
[2024-10-20 00:35] VITALS: BP 116/79; PULSE 117; RESP 17; TEMP 36.3; O2SAT 100
[2024-10-20 00:42] VITALS: BMI 25.4
[2024-10-20] MEDS: FUROSEMIDE 40 MG/4 ML VIAL IV (01:10)
[2024-10-20 01:42] VITALS: O2SAT 98
[2024-10-20] MEDS: ONDANSETRON 4 MG/2 ML INJ IV ×2 (02:40→10:09)
[2024-10-20 03:12] VITALS: BP 93/70; PULSE 103; RESP 17; TEMP 36.2; O2SAT 98
[2024-10-20 04:25] VITALS: BP 103/74; PULSE 101
[2024-10-20] MEDS: NITROGLYCERIN 0.4 MG SL TAB SL (04:25)
[2024-10-20] MEDS: ACETAMINOPHEN 325 MG TABLET 650 MG PO ×2 (04:29→15:11)
--- NOTE | 2024-10-20 04:34 | PC.NURSE ---
0420: Patient complaining of abdominal pain, stating it feels like her chest pain previously. 1 dose of nitro and tylenol given. Hospitalist Dr. Kapadia made aware. EKG taken by Shilpa CALIX. Patient states feeling better and chest pain has relieved. EKG results sent to
--- NOTE | 2024-10-20 04:37 | EKG_ITS ---
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
[2024-10-20 07:32] LABS: Add Manual Diff / Slide Review NO; Basophils Absolute Auto 0 /uL (0-100); Basophils Percent Auto 0.1 % (0-2); Eosinophils Absolute Auto 0 /uL (0-450); Eosinophils Percent Auto 0.1 % (2-4); Hematocrit 35.4 % (36-46); Lymphocytes Absolute Auto 1100 /uL (1100-4500); Lymphocytes Percent Auto 13.9 % (25-40); Mean Corpuscular HGB Conc 31.2 % (30-36); Mean Corpuscular Hemoglobin 23.8 PG (26-34); Mean Corpuscular Volume 76.2 fL (80-100); Monocytes Absolute Auto 700 /uL (0-900); Monocytes Percent Auto 8.4 % (3-14); Neutrophils Absolute Auto 6200 /uL (1500-7000); Neutrophils Percent Auto 77.5 % (50-75); Platelet Count 252 X10^3/uL (150-400); Red Blood Cell Count 4.64 X10^6/uL (4.0-5.2); Red Cell Distribution Width 17.9 % (11.6-14.8)
[2024-10-20 07:47] LABS: BUN Creatinine Ratio 26.1 (6-22); Blood Urea Nitrogen 31 mg/dL (7-17); Calcium 9.2 mg/dL (8.4-10.2); Carbon Dioxide 21 mmol/L (22-32); Chloride 100 mmol/L (98-107); Estimated Glomerular Filt Rate 50 mL/min (>60); Glucose 110 mg/dL (80-110); HEMOLYSIS < 15 (0-50); Potassium 4.8 mmol/L (3.4-5.1); Sodium 135 mmol/L (137-145)
[2024-10-20 07:54] LABS: NT-proBNP (BNP-Adult 18+) 20300 pg/mL (<125)
[2024-10-20 08:00] VITALS: BP 119/62; PULSE 102; RESP 20; TEMP 35.8; O2SAT 96
[2024-10-20 08:51] LABS: Troponin I 0.048 ng/mL (0.01-0.034)
[2024-10-20] MEDS: BUSPIRONE 5 MG TABLET 15 MG PO (08:55)
[2024-10-20] MEDS: PANTOPRAZOLE DR 20 MG TABLET PO (08:56)
[2024-10-20] MEDS: VENLAFAXINE ER 75 MG CAP 225 MG PO (08:56)
[2024-10-20] MEDS: SPIRONOLACTONE 25 MG TABLET PO (08:56)
[2024-10-20] MEDS: APIXABAN 5 MG TABLET PO (08:56)
[2024-10-20] MEDS: ASPIRIN EC 81 MG TABLET PO (08:57)
--- NOTE | 2024-10-20 11:45 | CM.DANOTE ---
Addendum entered by JALEEL Nicholas 10/20/24 14:04: ADD: [facility] transport form completed and faxed. [facility] is picking patient up at 2:30p to take to [facility]. Jacque at [facility] aware, agreeable. Original Note: Initial DCP Assessment Note Pt is a 69 yo female, resident at [facility] in [place], arrives with SOB and generalized weakness. Admitted OBS for further work up and management. PCP: Alexandra Lerma Payer: Radha DIETRICH/ [employer] Reviewed chart, pt discussed in multidisciplinary rounds this morning. Patient is likely to discharge over the next 24 hrs. Met w/patient; patient has been living at [facility] since July 2024, had been living in an apt before that, rent became too much for her to afford. Patient has [employer] which helps with medical and facility care, patient pays a participation amount monthly directly to [facility], [employer] pays the remainder of the cost. [facility] assists with medication management, patient reports she is independent in all other ADLs. Patient's sons Leonardo and Mitchell live in [place]. Plan: Discharge back to [facility] via [facility] transport vs [facility] van vs taxi. JALEEL Pacheco Discharge Planning/Care Management CM Discharge Assessment Start: 10/20/24 11:42 Freq: Status: Active Protocol: Document 10/20/24 11:42 ARMAND (Rec: 10/20/24 11:45 ARMAND [id number]) Discharge Planning Assessment Assigned Recycling Assistant JALEEL Talbot DPOA/Assigned Designee Name Mitchell Astorga son P [phone] ([place]) Advance Directives? Yes Advance Directives on File Yes History Provided By Patient,Medical Record Prior Living Arrangements Assisted Living Household Members other Type of transporation used prior to Relies on Others admit Independent with ADL's Yes Is patient alert and oriented? Yes Needs Assistance With Managing Medications Barriers to Discharge No Comment Return to [facility] Discharge Plan Assisted Living Facility Transportation Arrangement [facility] transport vs taxi vs [facility] van Referrals Initiated None needed
--- NOTE | 2024-10-20 11:57 | PM.DS.1 ---
History of Present Illness History of Present Illness Date Patient Seen: 10/20/24 Time Patient Seen: 23:00 Chief complaint: CHF Narrative: Per admitting provider, 69 y/o resident of [facility], with PMH of ischemic cardiomyopathy and PE, presented with complains on worsening shortness of breath, leg edemas and generalized weakness. She had recent adjustments of cardiac medications but not clear what was changed. She did not change her diet. Diagnosed with CHF exacerbations and placed in observation for controlled diuresis on telemetry monitoring. Discharge Providers Provider Date of admission: 10/19/24 23:21 Discharge Date: 10/20/24 Primary care physician: Doctor Mccullough, Discharge provider: Peter Andrade DO Summary Hospital Course Discharge Diagnosis: 1. Acute on chronic systolic heart failure 2. CAD, chronic 3. LV thrombus 4. Hypertension, chronic 5. Hyperlipidemia, chronic # SVT/ST - Zio patch 04/07/2023 sinus tachycardia average rate 107 bpm rare NSVT longest 8 beats length. PACs, 2.2% burden # Tobacco use (stopped 01/18/24) # Anxiety/depression, bipolar, on BuSpar, Effexor, trazodone, and nortriptyline # ADD, on Adderall # Fibromyalgia # Memory loss Hospital Course: This is a 69-year-old female with a past medical history of ischemic cardiomyopathy with an EF of approximately 15%, prior left ventricular thrombus on apixaban, hypertension, hyperlipidemia, anxiety depression, history of SVT, fibromyalgia who presented to the emergency room from her assisted living facility with shortness of breath after being evaluated by her palliative medicine physician earlier in the day. Per cardiology notes that were reviewed they recommended to reduce her Entresto and increase torsemide to 60 mg daily. She also did complain of chest pain which did improve over the course of her stay. Cardiology notes also recommended cessation of her atorvastatin and metoprolol given prior history of bradycardia. She is noted to have a chronic tachycardia per their documentation as well. In the emergency room, the patient was diuresed with IV furosemide. Upon my evaluation the patient was not hypoxic, had minimal leg edema, and reported that she had not tried an increased dose of torsemide. Her chest pain had improved after diuresis. She is scheduled for follow-up with her Cardiology group for an AICD placement in the next month, and the patient discussed also possible balloon pump at that time though I do not see this documented in her outpatient records. Given lack of hypoxia or leg edema, patient was safe to resume torsemide at her assisted living facility with the above changes to her home medications that had already been ordered but not implemented. Recommend continued monitoring of daily weights and follow up with outpatient Cardiology as previously scheduled, and as needed depending on her weights for possible adjustment in torsemide dosing or alternative diuresis. I have copied the cardiology assessment for ease of information transfer into the patient's chart from her cardiology note. # Mixed picture cardiomyopathy, ischemic & possible takotsubo, chronic HFrEF, NYHA II-III -echo 03/16/2024: LVEF 14% with severe dilation with mild LVH and with regional WMA, LV thrombus, mild RV hypokinesis, mild MR, moderate TR, PASP 47 mmHg with CVP 15 -echo 06/19/24: LVEF 13% with severe dilation -no BB secondary to low BP, bradycardia LVEF <10% Marked LVE 09/2024 LBBB # Coronary artery disease -CABG with MCGREGOR to LAD 09/15/1995 [place], [place] -Cath 07/2011 showed stable anatomy with widely patent MCGREGOR graft to the distal LAD with moderate circumflex disease and mild to moderate right coronary narrowings at that time. -NSTEMI, coronary angiogram 10/08/2022: patent MCGREGOR-LAD graft out competed in the mid LAD by the chenega vessel but provided excellent flow to distal LAD and wraparound apex; JASON to the focal severe stenosis of the mid circumflex. RCA with diffuse mild luminal irregularity proximal and mid junction and smooth 50% stenosis mid vessel -Cardiac stress MR 05/24/23: Severe LV dilation, LVEF 21%, no focal wall motion abnormalities, dyskinesis of the entire septum and inferior segments and myocardial thinning consistent with nonviable infarct, no evidence of ischemia on perfusion images, normal RVEF of 53%, minimal delayed enhancement due to blood pooling artifact and thin myocardium, high risk study due to reduced EF and large nonviable infarct -MPS 07/21/24: infarct with minimal ischemia, SSS24, SDS 2 # LV thrombus, on apixaban # Hypertension # Hyperlipidemia Time Spent with Patient Time spent: Greater than 30 minutes Exam Vital Signs (past 8 hours): - 10/20/24 04:25 10/20/24 08:00 Temperature 96.5 F L Pulse Rate 101 H 102 H Respiratory Rate 20 Blood Pressure 103/74 119/62 Pulse Oximetry 96 Oxygen Flow Rate 0 Oxygen Delivery Method Room Air Oxygen Flow Rate 0 Narrative Exam Narrative: Gen: Alert, no acute distress CV: RRR no m/r/g Pulm: CTA b/l Abd: S NT ND Ext: trace pretibial edema b/l LE Objective Labs 10/20/24 06:50 10/20/24 06:50 Labs: Laboratory Results - last 24 hr 10/19/24 10/19/24 10/20/24 21:12 23:13 06:50 WBC 7.8 8.0 RBC 4.87 4.64 Hgb 11.7 L 11.0 L Hct 37.1 35.4 L MCV 76.1 L 76.2 L MCH 23.9 L 23.8 L MCHC 31.5 31.2 RDW 18.6 H 17.9 H Plt Count 277 252 Neut % (Auto) 75.6 H 77.5 H Lymph % (Auto) 17.1 L 13.9 L [place] % (Auto) 6.1 8.4 Eos % (Auto) 0.6 L 0.1 L Baso % (Auto) 0.6 0.1 Neut # (Auto) 5900 6200 Lymph # (Auto) 1300 1100 [place] # (Auto) 500 700 Eos # (Auto) 0 0 Baso # (Auto) 100 0 PT 26.1 H INR 2.4 H Sodium 134 L 135 L Potassium 5.4 H 4.8 Chloride 102 100 Carbon Dioxide 22 21 L BUN 26 H 31 H Creatinine 1.09 H 1.19 H Estimated GFR 55 L 50 L BUN/Creatinine Ratio 23.9 H 26.1 H Glucose 124 H 110 Lactate 2.4 H 2.6 H Calcium 9.6 9.2 Total Bilirubin 0.9 AST 44 H ALT 36 H Alkaline Phosphatase 105 Troponin I 0.043 H 0.044 H 0.048 H NT-Pro-B Natriuret Pep 15024 H 20294 H Total Protein 7.3 Albumin 4.3 Globulin 3.0 Albumin/Globulin Ratio 1.4 PFSH Social History household members: other Smoking Status: Former smoker Discharge Plan Discharge Plan Patient Disposition: Home Transfer to: [facility] Provider Discharge Comment: Patient with ischemic cardiomyopathy admitted for mild CHF exacerbation. Stable for discharge home. Since palliative medicine physician just recommended increase to 60 mg of torsemide along with drop in entresto, and patient did not take increased dose of torsemide prior to admission, agree with discharge on 60 mg at this time. Continue to watch daily weights, reach out to cardiology for continued medication adjustments. She has follow up on 11/07. Has ICD planned for 11/20 at [facility]. Discharge orders & Medications Prescriptions: Continued acetaminophen 325 mg Tablet 650 mg PO Q6H PRN (Reason: Pain, Mild) torsemide 20 mg Tablet 60 mg PO DAILY Rx Instructions: to start this dose tomorrow 10/20/24 trazodone 50 mg Tablet 150 mg PO BEDTIME PRN (Reason: Insomnia) spironolactone 25 mg Tablet 25 mg PO DAILY nortriptyline 25 mg Capsule 50 mg PO BEDTIME magnesium hydroxide 400 mg/5 mL Suspension 400 mg PO BEDTIME PRN (Reason: Constipation) nitroglycerin 0.4 mg Tablet, Sublingual 0.4 mg SUBLINGUAL Q5-15M PRN (Reason: Chest Pain) Rx Instructions: do not exceed 3 doses per episode ondansetron 4 mg Tablet,Disintegrating 4 mg PO Q6H PRN (Reason: Nausea) buspirone 15 mg Tablet 15 mg PO BID omeprazole 20 mg Tablet,Delayed Release (Dr/Ec) 20 mg PO DAILY venlafaxine 75 mg Tablet Extended Release 24hr 225 mg PO DAILY empagliflozin 10 mg Tablet 10 mg PO DAILY sacubitril-valsartan [Entresto] 24-26 mg Tablet 1 tab BID Rx Instructions: just prescribed today 10/19/24 has not started yet aspirin 81 mg tablet,delayed release (DR/EC) 81 mg PO DAILY albuterol sulfate 90 mcg/actuation HFA aerosol inhaler 2 puff inhalation Q4H PRN (Reason: Wheezing) diclofenac sodium 1 % Gel 2 g TOPICAL QID Rx Instructions: apply to single elbow, wrist or hand; for hand includes palm/fingers/back of hand Eliquis 5 mg tablet 5 mg PO BID Follow up/Referrals: Miscellaneous,Doctor, MD [Primary Care Provider] - Diet/Activity/Treatments Diet: Diet as Tolerated and Low-sodium Activity: No restrictions. Visit Report/Discharge Packet Instructions: Heart Failure, How to Prevent Falls, DI for Chest Pain Stand Alone Forms: Patient Portal/API, Stroke Signs & Symptoms Discharge Data Primary Care Provider: Jamel,Doctor Attending Provider: Alex Stapleton Admit Date/Time: 10/19/24 23:21 Quality MIPS - DC The patient has current or prior documentation of left ventricular ejection fraction (LVEF) less than or equal to 40%, or moderate or severely depressed left ventricular systolic function.: Yes A. The patient was prescribed or already taking an Angiotensin-Converting Enzyme (ZION) Inhibitor, or Angiotensin Receptor Veronica (ARB).: Yes B. The patient was prescribed or already taking a beta-veronica. [If Yes to Both A & B, STOP here]: No Patient not prescribed/taking Beta-veronica for medical/patient reason(s) including (ex: allergy, intolerance, contraindication).: bradycardia
[2024-10-20 12:00] VITALS: BP 108/69; PULSE 104; RESP 18; TEMP 36.4; O2SAT 92
--- NOTE | 2024-10-20 17:24 | PC.NURSE ---
Addendum entered by Yoon Azul R.N. 10/20/24 17:34: [facility] called and given further information and importance of taking meds. They report pt refuses to take meds for them. She has taken all her meds w/out problems while here. Pt reports her son is a strong advocate for her. Report completed. Original Note: Transfer. Pt feels ready for transfer to [facility]. Reviewed d/c instructions. Pt brought up concern that her medication wasn't given after change from MD when she saw the model maker scale. This communications writer already tried to call report and no one answered. Will try again to make sure they understand the importance of pt's medications. Pt had no questions about her d/c paperwork. Pt transfered to [facility] via [facility].
== END 2024-10-20 16:00 | disposition home or self-care (01) ==
LOC: ED 23:18 → AC 23:26
PROVIDERS: Internal Medicine; Admitting Provider Internal Medicine; Emergency Provider Student in an Organized Health Care Education/Training Program; Referring Provider Student in an Organized Health Care Education/Training Program; Visit Provider Internal Medicine
DX: I50.23 Acute on chronic systolic (congestive) heart failure (principal); I11.0 Hypertensive heart disease with heart failure; I25.10 Atherosclerotic heart disease of native coronary artery without angina pectoris; K21.9 Gastro-esophageal reflux disease without esophagitis; F31.9 Bipolar disorder, unspecified; M79.7 Fibromyalgia; R41.3 Other amnesia; Z79.01 Long term (current) use of anticoagulants; Z86.711 Personal history of pulmonary embolism; Z87.891 Personal history of nicotine dependence; Z95.1 Presence of aortocoronary bypass graft; I25.2 Old myocardial infarction
CPT/HCPCS: 36415; 71045; 80048; 80053; 83605; 83880; 84484; 85025; 85610; 93005; 96374; 96375; 96376; 99284; G0378; J1940; J2405

== ENCOUNTER 2024-11-05 17:47 | Emergency (ER) | payer OTHER, MEDICAID, SELFPAY ==
[2024-11-05] VITALS (15 sets, daily range): BP systolic 95–113; BP diastolic 50–72; PULSE 104–109; RESP 19–39; TEMP 36.6; O2SAT 93–97; BMI 25.9
--- NOTE | 2024-11-05 17:49 | DI.RAD.S_ITS ---
PROCEDURE: XR CHEST 1V INDICATIONS: chest pain TECHNIQUE: One view of the chest was acquired. COMPARISON: [facility], CR, XR CHEST 1 VIEW, 09/28/2024, 21:05. [facility], CR, XR CHEST 1V, 09/26/2024, 19:04. [facility], CR, XR CHEST 1 VIEW, 09/17/2024, 19:17. [facility], CR, XR CHEST 1V, 10/19/2024, 21:33. FINDINGS: Surgical changes and devices: Sternotomy wires and mediastinal clips are seen. Lungs and pleura: There is generalized interstitial prominence. No pleural effusions or pneumothorax. Mediastinum: Mediastinal contours appear normal. Heart size is at least moderately enlarged. Bones and chest wall: No suspicious bony lesions. Age-appropriate bony degenerative changes are seen. Overlying soft tissues appear unremarkable. IMPRESSION: There is cardiomegaly with interstitial prominence. CHF is suspected. Postoperative and degenerative changes are seen. Dictated by: Real Quintero M.D. on 11/05/2024 at 17:42 Approved by: Real Quintero M.D. on 11/05/2024 at 17:42
--- NOTE | 2024-11-05 17:49 | EKG_ITS ---
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
[2024-11-05 18:00] LABS: INR 2.4 (0.9-1.3); Prothrombin Time 26.6 SECONDS (9.4-12.5)
[2024-11-05 18:02] LABS: PTT Partial Thromboplastin Tim 36 SECONDS (25.1-36.5)
[2024-11-05 18:04] LABS: Add Manual Diff / Slide Review NO; Alanine Aminotransferase 71 IU/L (<35); Albumin 4.2 g/dL (3.5-5.0); Albumin Globulin Ratio 1.4 (1.0-2.8); Alkaline Phosphatase 98 U/L (38-126); Aspartate Aminotransferase 40 IU/L (14-36); BUN Creatinine Ratio 28.3 (6-22); Basophils Absolute Auto 100 /uL (0-100); Basophils Percent Auto 1.5 % (0-2); Blood Urea Nitrogen 32 mg/dL (7-17); Calcium 9.2 mg/dL (8.4-10.2); Carbon Dioxide 26 mmol/L (22-32); Chloride 97 mmol/L (98-107); Creatine Kinase 52 U/L (30-135); Eosinophils Absolute Auto 100 /uL (0-450); Eosinophils Percent Auto 0.8 % (2-4); Estimated Glomerular Filt Rate 53 mL/min (>60); Glucose 122 mg/dL (80-110); HEMOLYSIS 33 (0-50); Hemoglobin 10.6 g/dL (12.0-16.0); Lipase 40 U/L (23-300); Lymphocytes Absolute Auto 1500 /uL (1100-4500); Magnesium 2.1 mg/dL (1.6-2.3); Mean Corpuscular HGB Conc 31.2 % (30-36); Mean Corpuscular Hemoglobin 23.4 PG (26-34); Monocytes Absolute Auto 600 /uL (0-900); Monocytes Percent Auto 7.8 % (3-14); Neutrophils Absolute Auto 5200 /uL (1500-7000); Neutrophils Percent Auto 69.9 % (50-75); Platelet Count 353 X10^3/uL (150-400); Potassium 4.4 mmol/L (3.4-5.1); Red Blood Cell Count 4.53 X10^6/uL (4.0-5.2); Sodium 135 mmol/L (137-145); Total Protein 7.2 g/dL (6.3-8.2); White Blood Cell Count 7.4 X10^3/uL (4.5-11.0)
[2024-11-05 18:15] LABS: NT-proBNP (BNP-Adult 18+) 15800 pg/mL (<125); Troponin I 0.038 ng/mL (0.01-0.034)
--- NOTE | 2024-11-05 18:34 | ED.CHESTPAIN ---
HPI - Chest Pain General Chief Complaint: Chest Pain Stated Complaint: Angina Time Seen by Provider: 11/05/24 18:34 Source: patient and EMS Mode of arrival: EMS Limitations: no limitations History of Present Illness HPI narrative: 69-year-old female with a past medical history of CHF with an ejection fraction of 10%, hypertension, PE on Eliquis presents to the emergency department from [facility] for evaluation of chest pain that started at around 4:45 p.m.. She states that she was given nitro and full-dose aspirin by her facility, did receive another sublingual nitro by EMS prior to arrival at time of evaluation patient now without any chest pain. she states that the pain started spontaneously non exertional in nature. Nonpleuritic in nature. she states that she always does have baseline shortness of breath given her history of reduced ejection fraction but is not complaining of any increased shortness of breath at this time. patient states that she does have an appointment with her spring tier in [place] on Wednesday11/07/2024, she states that she also has an appointment to have a pacemaker placed with [facility] tentatively in 2 weeks. Related Data Home Medications Medication Instructions Recorded Confirmed acetaminophen 325 mg tablet 650 mg PO Q6H PRN Pain, Mild 07/26/24 10/19/24 buspirone 15 mg tablet 15 mg PO BID 07/26/24 10/19/24 empagliflozin 10 mg tablet 10 mg PO DAILY 07/26/24 10/19/24 magnesium hydroxide 400 mg/5 mL 400 mg PO BEDTIME PRN Constipation 07/26/24 10/19/24 oral suspension nitroglycerin 0.4 mg sublingual 0.4 mg sublingual Q5-15M PRN Chest 07/26/24 10/19/24 tablet Pain nortriptyline 25 mg capsule 50 mg PO BEDTIME 07/26/24 10/19/24 omeprazole 20 mg tablet,delayed 20 mg PO DAILY 07/26/24 10/19/24 release ondansetron 4 mg disintegrating 4 mg PO Q6H PRN Nausea 07/26/24 10/19/24 tablet spironolactone 25 mg tablet 25 mg PO DAILY 07/26/24 10/19/24 torsemide 20 mg tablet 60 mg PO DAILY 07/26/24 10/19/24 trazodone 50 mg tablet 150 mg PO BEDTIME PRN Insomnia 07/26/24 10/19/24 venlafaxine 75 mg tablet,extended 225 mg PO DAILY 07/26/24 10/19/24 release 24 hr albuterol sulfate 90 mcg/actuation 2 puff inhalation Q4H PRN Wheezing 10/19/24 10/19/24 aerosol inhaler apixaban 5 mg tablet (Eliquis) 5 mg PO BID 10/19/24 10/19/24 aspirin 81 mg tablet,delayed 81 mg PO DAILY 10/19/24 10/19/24 release diclofenac sodium 1 % topical gel 2 g topical QID 10/19/24 10/19/24 sacubitril 24 mg-valsartan 26 mg 1 tab BID 10/19/24 10/19/24 tablet (Entresto) Allergies Allergy/AdvReac Type Severity Reaction Status Date / Time divalproex sodium AdvReac Verified 10/19/24 21:10 [From Depakote] metoprolol AdvReac Nausea Verified 10/19/24 21:10 sertraline [From Zoloft] AdvReac Nausea Verified 10/19/24 21:10 sumatriptan AdvReac Palpitation Verified 10/19/24 21:10 s Review of Systems Review of Systems Narrative: General: Denies fever, chills, weight loss HEENT: Denies headache, eye drainage, eye irritation, head trauma, sore throat, voice change Cardiovascular: positive chest pain, denies palpitations, tachycardia Respiratory: Denies any shortness of breath, cough, wheeze, stridor GI/: Denies any abdominal pain, nausea, vomiting, diarrhea, bright red blood per rectum, melanotic stools, urinary frequency, urinary retention, dysuria, hematuria MSK: Denies any joint pain, muscle pains, swelling Skin: Denies any rashes, lesions, discoloration Neuro: Denies any headache, lightheadedness, dizziness, fainting, weakness Psych: Denies SI/HI Patient History Social History household members: other Smoking Status: Former smoker Smoking Status: Former smoker Exam Narrative Exam Narrative: General: Cooperative, comfortable, well-developed, not in acute distress HEENT: Normocephalic, atraumatic, PERRLA, normal sclera, eyelids normal, Neck: Active full range of motion, atraumatic Chest: Normal to inspection, negative crepitus, no overlying erythema ecchymosis Respiratory: Normal respiratory effort, not in acute respiratory distress, clear to auscultation bilaterally negative cough, wheeze, tachypnea, rhonchi, rales Cardiology: Regular rate rhythm negative gallop, murmur, rubs GI/: Normal to inspection, soft, nonrigid, no tenderness to palpation, exam deferred MSK: Full range of active range of motion of all 4 extremities, atraumatic Skin: No rashes lesions noted Neuro: Alert awake oriented x3, moves all 4 extremities spontaneously, cranial nerves intact, able to answer all questions appropriately follows commands appropriately Psych: Cooperative, negative suicidal or homicidal ideations Initial Vital Signs Initial Vital Signs: Vital Signs Pulse Rate 109 H 11/05/24 17:40 Pulse Oximetry 97 11/05/24 17:40 Course Orders Ordered: ED Orders 11/05/24 17:12 Complete Blood Count AUTO DIFF Stat Comprehensive Metabolic Panel Stat Lipase Stat Magnesium Stat NT-proBNP (BNP-Adult 18+) Stat PTT Partial Thromboplastin Jarek Stat Prothrombin Time INR Stat Troponin & CK Cardiac Panel Stat 11/05/24 17:49 XR chest 1V Stat EKG-12 Lead Stat 11/05/24 19:20 Trop I [Troponin I] Stat Vital Signs Vital signs: Vital Signs - 8 hr 11/05/24 17:40 11/05/24 17:43 11/05/24 17:47 Temperature 97.9 F Pulse Rate 109 H 109 H Respiratory Rate 20 Blood Pressure 107/59 L 95/50 L Pulse Oximetry 97 97 Oxygen Delivery Method Room Air 11/05/24 17:47 11/05/24 17:48 11/05/24 17:48 Temperature Pulse Rate 104 H 104 H Respiratory Rate 28 H 39 H Blood Pressure 100/51 L Pulse Oximetry 96 96 Oxygen Delivery Method 11/05/24 18:00 11/05/24 18:00 11/05/24 18:15 Temperature Pulse Rate 107 H Respiratory Rate 19 Blood Pressure 106/57 L 107/64 Pulse Oximetry 94 Oxygen Delivery Method 11/05/24 18:15 11/05/24 18:30 11/05/24 18:30 Temperature Pulse Rate 108 H 108 H Respiratory Rate 28 H 23 Blood Pressure 112/61 Pulse Oximetry 93 96 Oxygen Delivery Method 11/05/24 18:46 11/05/24 18:46 11/05/24 19:00 Temperature Pulse Rate 108 H 107 H Respiratory Rate 21 21 Blood Pressure 107/67 Pulse Oximetry 94 94 Oxygen Delivery Method Room Air 11/05/24 19:00 11/05/24 19:15 11/05/24 19:15 Temperature Pulse Rate 108 H Respiratory Rate 24 Blood Pressure 105/58 L 101/57 L Pulse Oximetry 95 Oxygen Delivery Method MDM - Chest Pain Differential Diagnosis Differential diagnosis: Likely stable angina, unstable angina pectoris, atypical chest pain, st elevation myocardial infarction, chest pain and other Lab Data 11/05/24 17:12 11/05/24 17:12 Labs: Lab Results 11/05/24 11/05/24 Range/Units 17:12 19:20 WBC 7.4 (4.5-11.0) X10^3/uL RBC 4.53 (4.0-5.2) X10^6/uL Hgb 10.6 L (12.0-16.0) g/dL Hct 34.0 L (36-46) % MCV 75.0 L (80-100) fL MCH 23.4 L (26-34) PG MCHC 31.2 (30-36) % RDW 18.0 H (11.6-14.8) % Plt Count 353 (150-400) X10^3/uL Neut % (Auto) 69.9 (50-75) % Lymph % (Auto) 20.0 L (25-40) % Russell % (Auto) 7.8 (3-14) % Eos % (Auto) 0.8 L (2-4) % Baso % (Auto) 1.5 (0-2) % Neut # (Auto) 5200 (0450-5588) /uL Lymph # (Auto) 1500 (7324-7497) /uL Russell # (Auto) 600 (0-900) /uL Eos # (Auto) 100 (0-450) /uL Baso # (Auto) 100 (0-100) /uL PT 26.6 H (9.4-12.5) SECONDS INR 2.4 H (0.9-1.3) APTT 36 (25.1-36.5) SECONDS Sodium 135 L (137-145) mmol/L Potassium 4.4 (3.4-5.1) mmol/L Chloride 97 L (98-107) mmol/L Carbon Dioxide 26 (22-32) mmol/L BUN 32 H (7-17) mg/dL Creatinine 1.13 H (0.52-1.04) mg/dL Estimated GFR 53 L (>60) mL/min BUN/Creatinine Ratio 28.3 H (6-22) Glucose 122 H (80-110) mg/dL Calcium 9.2 (8.4-10.2) mg/dL Magnesium 2.1 (1.6-2.3) mg/dL Total Bilirubin 1.0 (0.2-1.3) mg/dL AST 40 H (14-36) IU/L ALT 71 H (<35) IU/L Alkaline Phosphatase 98 (38-126) U/L Total Creatine Kinase 52 (30-135) U/L Troponin I 0.038 H 0.038 H (0.01-0.034) ng/mL NT-Pro-B Natriuret Pep 93709 H (<125) pg/mL Total Protein 7.2 (6.3-8.2) g/dL Albumin 4.2 (3.5-5.0) g/dL Globulin 3.0 (1.7-4.1) g/dL Albumin/Globulin Ratio 1.4 (1.0-2.8) Lipase 40 (23-300) U/L Imaging Data Chest x-ray: Radiologist's Impression: [address] [address] XRay Report Signed Patient: Mone Erazo MR#: [id number] : 1955 Acct:[id number] Age/Sex: 69 / F Date of Service: 11/05/24 Loc: ED Accession Number: [id number] Procedure: XR chest 1V Ordering Provider: Karla Padilla D.O. PROCEDURE: XR CHEST 1V INDICATIONS: chest pain TECHNIQUE: One view of the chest was acquired. COMPARISON: [facility], CR, XR CHEST 1 VIEW, 09/28/2024, 21:05. [facility], CR, XR CHEST 1V, 09/26/2024, 19:04. [facility], CR, XR CHEST 1 VIEW, 09/17/2024, 19:17. [facility], CR, XR CHEST 1V, 10/19/2024, 21:33. FINDINGS: Surgical changes and devices: Sternotomy wires and mediastinal clips are seen. Lungs and pleura: There is generalized interstitial prominence. No pleural effusions or pneumothorax. Mediastinum: Mediastinal contours appear normal. Heart size is at least moderately enlarged. Bones and chest wall: No suspicious bony lesions. Age-appropriate bony degenerative changes are seen. Overlying soft tissues appear unremarkable. IMPRESSION: There is cardiomegaly with interstitial prominence. CHF is suspected. Postoperative and degenerative changes are seen. ECG Data Interpretation: EKG interpreted ED physician sinus tachycardia 107 beats per minute QTC 523 left axis deviation nonspecific ST changes no STEMI, left bundle branch block noted similar to previous MDM Narrative Medical decision making narrative: patient is a 69-year-old female with a past medical history of ischemic CHF ejection fraction of 10%, hypertension, PE on Eliquis, presents from living facility for chest pain, did receive 2 sublingual nitros and full-dose aspirin prior to arrival with complete resolution of pain at time of evaluation. Patient does follow up with [facility] is supposed to have an appointment with them on 11/07/24. She also states that she is supposed to have a pacemaker defibrillator placed tentatively in 2 weeks. not requiring any supplemental oxygen at baseline. Requiring any supplemental oxygen here. She is speaking in full sentences protecting airway no dyspnea with conversation or with exertion. given patient's significant cardiac history does have baseline elevated BNP as well as troponin, here BNP 15,800, this is lower than when she was seen here on 10/20/2024. initial troponin 0.038, repeat 0.038, patient does have a heart score of 4 therefore did offer patient admission to the hospital for observation, however she states that she was just here recently for something similar states that we will not do anything for her and would rather just go back to her living facility and follow up with her spring tier for her appointment in 2 days. She was given strict return precautions she verbalized understanding of this and agrees to being discharged home with outpatient follow up. Discharge Plan Departure Patient Disposition: Home Clinical Impression: Chest pain Instructions: DI for Angina, DI for Chest Pain Activity Restrictions/Additional Instructions: please follow up with your [facility] for your scheduled appointment Please read the discharge instructions sheet carefully and bring all papers to all doctor follow-up visits, as it may contain information that your doctor may want to see. Disease processes change and evolve, if your symptoms worsen or if you develop any new symptoms that are concerning to you please return for evaluation. Your evaluation today does not show any evidence of any life-threatening/serious illnesses requiring admission to the hospital or surgery. Please follow-up with your doctor for re-evaluation in approximately 1 day. Seek immediate medical attention for any worrisome symptoms. *If you do not have a primary care provider please contact the [facility] Resource line at [phone]. They will ask some questions about your medical history and help get you set up with a doctor in the community. Prescriptions: No Action acetaminophen 325 mg Tablet 650 mg PO Q6H PRN (Reason: Pain, Mild) torsemide 20 mg Tablet 60 mg PO DAILY Rx Instructions: to start this dose tomorrow 10/20/24 trazodone 50 mg Tablet 150 mg PO BEDTIME PRN (Reason: Insomnia) spironolactone 25 mg Tablet 25 mg PO DAILY nortriptyline 25 mg Capsule 50 mg PO BEDTIME magnesium hydroxide 400 mg/5 mL Suspension 400 mg PO BEDTIME PRN (Reason: Constipation) nitroglycerin 0.4 mg Tablet, Sublingual 0.4 mg SUBLINGUAL Q5-15M PRN (Reason: Chest Pain) Rx Instructions: do not exceed 3 doses per episode ondansetron 4 mg Tablet,Disintegrating 4 mg PO Q6H PRN (Reason: Nausea) buspirone 15 mg Tablet 15 mg PO BID omeprazole 20 mg Tablet,Delayed Release (Dr/Ec) 20 mg PO DAILY venlafaxine 75 mg Tablet Extended Release 24hr 225 mg PO DAILY empagliflozin 10 mg Tablet 10 mg PO DAILY sacubitril-valsartan [Entresto] 24-26 mg Tablet 1 tab BID Rx Instructions: just prescribed today 10/19/24 has not started yet aspirin 81 mg tablet,delayed release (DR/EC) 81 mg PO DAILY albuterol sulfate 90 mcg/actuation HFA aerosol inhaler 2 puff inhalation Q4H PRN (Reason: Wheezing) diclofenac sodium 1 % Gel 2 g TOPICAL QID Rx Instructions: apply to single elbow, wrist or hand; for hand includes palm/fingers/back of hand Eliquis 5 mg tablet 5 mg PO BID Referrals: Miscellaneous,Doctor, MD [Primary Care Provider] - Stand Alone Forms: Patient Portal/API/Survey
[2024-11-05 19:50] LABS: Troponin I 0.038 ng/mL (0.01-0.034)
== END 2024-11-05 20:36 | disposition home or self-care (01) ==
PROVIDERS: Emergency Medicine; Emergency Provider Student in an Organized Health Care Education/Training Program
DX: R07.9 Chest pain, unspecified (principal); I50.9 Heart failure, unspecified; I11.0 Hypertensive heart disease with heart failure; R00.1 Bradycardia, unspecified; Z87.891 Personal history of nicotine dependence
CPT/HCPCS: 36415; 71045; 80053; 82550; 83690; 83735; 83880; 84484; 85025; 85610; 85730; 93005; 99283; 99284

== ENCOUNTER 2024-12-26 17:36 | Emergency (ER) | payer OTHER, MEDICAID, SELFPAY ==
[2024-12-26] VITALS (11 sets, daily range): BP systolic 91–124; BP diastolic 46–67; PULSE 102–108; RESP 19–26; TEMP 36.6; O2SAT 93–97; BMI 26.7
--- NOTE | 2024-12-26 17:51 | EKG_ITS ---
[address] [address] Test Date: 2024-12-26 Pat Name: Mone Erazo Department: Room: Gender: Female Methods And Procedures Analyst: sofia : 1955 Requested By: Order Number: [id number] Reading MD: Evesn [place] Measurements Intervals [place] Rate: 103 P: 62 AR: 122 QRS: 213 QRSD: 154 T: 156 QT: 414 QTc: 542 Interpretive Statements Atrial-sensed ventricular-paced rhythm Electronically Signed On 12-27-2024 16:22:30 PDT by Evens [place]
--- NOTE | 2024-12-26 17:55 | DI.RAD.S_ITS ---
PROCEDURE: XR CHEST 1V INDICATIONS: Chest Pain TECHNIQUE: One view of the chest was acquired. COMPARISON: [facility], CR, XR CHEST 1V, 11/05/2024, 17:58. FINDINGS: Surgical changes and devices: Sternal wires. Interval placement left-sided pacemaker with intact leads. Lungs and pleura: Lungs are clear. No pleural effusions or pneumothorax. Mediastinum: Mediastinal contours appear normal. Heart size is enlarged. Bones and chest wall: No suspicious bony lesions. Overlying soft tissues appear unremarkable. IMPRESSION: No acute pulmonary process. Dictated by: Melody Anglin M.D. on 12/26/2024 at 18:07 Approved by: Melody Anglin M.D. on 12/26/2024 at 18:08
[2024-12-26 18:27] LABS: Add Manual Diff / Slide Review NO; Basophils Absolute Auto 100 /uL (0-100); Basophils Percent Auto 0.9 % (0-2); Eosinophils Absolute Auto 200 /uL (0-450); Eosinophils Percent Auto 2.6 % (2-4); Hematocrit 34.6 % (36-46); Hemoglobin 10.7 g/dL (12.0-16.0); Lymphocytes Absolute Auto 1700 /uL (1100-4500); Lymphocytes Percent Auto 25.6 % (25-40); Mean Corpuscular Hemoglobin 22.2 PG (26-34); Mean Corpuscular Volume 71.4 fL (80-100); Monocytes Absolute Auto 500 /uL (0-900); Monocytes Percent Auto 8.4 % (3-14); Neutrophils Absolute Auto 4000 /uL (1500-7000); Neutrophils Percent Auto 62.5 % (50-75); Platelet Count 242 X10^3/uL (150-400); Red Blood Cell Count 4.84 X10^6/uL (4.0-5.2); Red Cell Distribution Width 17.6 % (11.6-14.8); White Blood Cell Count 6.4 X10^3/uL (4.5-11.0)
[2024-12-26 18:42] LABS: INR 1.5 (0.9-1.3); Prothrombin Time 16.4 SECONDS (9.4-12.5)
[2024-12-26 18:44] LABS: PTT Partial Thromboplastin Tim 37 SECONDS (25.1-36.5)
[2024-12-26 18:46] LABS: Alanine Aminotransferase 19 IU/L (<35); Albumin 4.3 g/dL (3.5-5.0); Albumin Globulin Ratio 1.4 (1.0-2.8); Alkaline Phosphatase 96 U/L (38-126); Aspartate Aminotransferase 29 IU/L (14-36); Bilirubin Total 0.5 mg/dL (0.2-1.3); Blood Urea Nitrogen 31 mg/dL (7-17); Calcium 8.8 mg/dL (8.4-10.2); Carbon Dioxide 30 mmol/L (22-32); Chloride 100 mmol/L (98-107); Creatine Kinase 56 U/L (30-135); Estimated Glomerular Filt Rate 43 mL/min (>60); Globulin 3.1 g/dL (1.7-4.1); Glucose 92 mg/dL (70-99); HEMOLYSIS < 15 (0-50); Lactate (Lactic Acid) 1.4 mmol/L (0.7-2.1); Lipase 61 U/L (23-300); Magnesium 2.2 mg/dL (1.6-2.3); Potassium 4.3 mmol/L (3.4-5.1); Sodium 138 mmol/L (137-145); Total Protein 7.4 g/dL (6.3-8.2)
[2024-12-26 18:58] LABS: NT-proBNP (BNP-Adult 18+) 10000 pg/mL (<125); Troponin I 0.051 ng/mL (0.01-0.034)
--- NOTE | 2024-12-26 19:16 | ED_ITS ---
HPI - SOB/Dyspnea General Chief Complaint: Shortness of Breath/Dyspnea Stated Complaint: Cough Time Seen by Provider: 12/26/24 17:55 Source: patient and EMS Mode of arrival: EMS Limitations: no limitations History of Present Illness HPI Narrative: Patient is a 69-year-old female history of congestive heart failure with pacemaker EF 10% presenting today with cough. She reports that pacemaker was placed about a month ago [facility]. She says that since then she has had kind of this nonproductive cough. Over last 3 days it has gotten worse. No fever or chills. Denies any swelling in her abdomen or lower legs. Does not feel like she was in heart failure. Always has a orthopnea no significant increasing shortness of breath with exertion Related Data Home Medications Medication Instructions Recorded Confirmed acetaminophen 325 mg tablet 650 mg PO Q6H PRN Pain, Mild 07/26/24 10/19/24 buspirone 15 mg tablet 15 mg PO BID 07/26/24 10/19/24 empagliflozin 10 mg tablet 10 mg PO DAILY 07/26/24 10/19/24 magnesium hydroxide 400 mg/5 mL 400 mg PO BEDTIME PRN Constipation 07/26/24 10/19/24 oral suspension nitroglycerin 0.4 mg sublingual 0.4 mg sublingual Q5-15M PRN Chest 07/26/24 10/19/24 tablet Pain nortriptyline 25 mg capsule 50 mg PO BEDTIME 07/26/24 10/19/24 omeprazole 20 mg tablet,delayed 20 mg PO DAILY 07/26/24 10/19/24 release ondansetron 4 mg disintegrating 4 mg PO Q6H PRN Nausea 07/26/24 10/19/24 tablet spironolactone 25 mg tablet 25 mg PO DAILY 07/26/24 10/19/24 torsemide 20 mg tablet 60 mg PO DAILY 07/26/24 10/19/24 trazodone 50 mg tablet 150 mg PO BEDTIME PRN Insomnia 07/26/24 10/19/24 venlafaxine 75 mg tablet,extended 225 mg PO DAILY 07/26/24 10/19/24 release 24 hr albuterol sulfate 90 mcg/actuation 2 puff inhalation Q4H PRN Wheezing 10/19/24 10/19/24 aerosol inhaler apixaban 5 mg tablet (Eliquis) 5 mg PO BID 10/19/24 10/19/24 aspirin 81 mg tablet,delayed 81 mg PO DAILY 10/19/24 10/19/24 release diclofenac sodium 1 % topical gel 2 g topical QID 10/19/24 10/19/24 sacubitril 24 mg-valsartan 26 mg 1 tab BID 10/19/24 10/19/24 tablet (Entresto) Allergies Allergy/AdvReac Type Severity Reaction Status Date / Time divalproex sodium AdvReac Verified 12/26/24 18:00 [From Depakote] metoprolol AdvReac Nausea Verified 12/26/24 18:00 sertraline [From Zoloft] AdvReac Nausea Verified 12/26/24 18:00 sumatriptan AdvReac Palpitation Verified 12/26/24 18:00 s Patient History Social History household members: other Exam Initial Vital Signs Initial Vital Signs: Vital Signs Pulse Rate 104 H 12/26/24 17:43 Respiratory Rate 19 12/26/24 17:43 Blood Pressure 113/67 12/26/24 17:43 Pulse Oximetry 97 12/26/24 17:43 GENERAL: Alert pleasant 61-year-old female and in no acute distress. HEENT: Head atraumatic,EOMI, pupils reactive, face symmetric, moist mucous membranes CARDIOVASCULAR: Regular rate and rhythm without murmurs, rubs or gallops. RESPIRATORY: Breath sounds equal bilaterally, no wheezes rales or rhonchi. ABDOMEN: Soft, nontender. Normoactive bowel sounds all 4 quadrants. No guarding or rebound. EXTREMITIES: Normal range of motion, no clubbing or edema. Neurovascularly intact NEUROLOGICAL: Alert and oriented x4.Normal gait and speech. Cranial nerves II through XII grossly intact. SKIN: Warm, dry, no laceration, no petechiae, no rashes or lesions. Course Orders Ordered: ED Orders 12/26/24 17:55 XR chest 1V Stat EKG-12 Lead Stat RT Consult Eval and Treat NOW 12/26/24 18:15 Complete Blood Count AUTO DIFF Stat Comprehensive Metabolic Panel Stat Lactate (Lactic Acid) Stat Lipase Stat Magnesium Stat NT-proBNP (BNP-Adult 18+) Stat PTT Partial Thromboplastin Jarek Stat Prothrombin Time INR Stat Troponin & CK Cardiac Panel Stat 12/26/24 20:15 Trop I [Troponin I] Stat Discontinued Medications Albuterol/Ipratropium (Albuterol/Ipratropium 3 Ml Ampul) 3 ml INH NOW ONE Stop: 12/26/24 19:27 Last Admin: 12/26/24 19:59 Dose: 3 ml Documented By: CASANDRA Aspirin (Aspirin 81 Mg Chew Tab) 324 mg PO NOW ONE Stop: 12/26/24 17:56 Last Admin: 12/26/24 18:23 Dose: Not Given Documented By: OLGA Vital Signs Vital signs: Vital Signs - 8 hr 12/26/24 18:18 12/26/24 19:00 12/26/24 19:30 Pulse Rate 102 H 106 H 104 H Respiratory Rate 26 H 21 26 H Blood Pressure 102/56 L Pulse Oximetry 94 96 96 Oxygen Delivery Method 12/26/24 20:00 12/26/24 20:00 12/26/24 20:30 Pulse Rate 104 H 104 H Respiratory Rate 20 24 Blood Pressure 108/55 L Pulse Oximetry 96 93 Oxygen Delivery Method 12/26/24 20:31 12/26/24 20:31 12/26/24 20:34 Pulse Rate 105 H 104 H Respiratory Rate 24 21 Blood Pressure 91/46 L Pulse Oximetry 94 95 Oxygen Delivery Method 12/26/24 20:34 12/26/24 21:00 12/26/24 21:00 Pulse Rate 106 H Respiratory Rate 19 Blood Pressure 110/56 L 123/62 Pulse Oximetry 97 Oxygen Delivery Method Room Air 12/26/24 21:30 12/26/24 21:30 Pulse Rate 108 H Respiratory Rate 20 Blood Pressure 124/67 Pulse Oximetry 95 Oxygen Delivery Method Room Air MDM - SOB/Dyspnea Lab Data 12/26/24 18:15 12/26/24 18:15 Labs: Lab Results 12/26/24 12/26/24 Range/Units 18:15 20:15 WBC 6.4 (4.5-11.0) X10^3/uL RBC 4.84 (4.0-5.2) X10^6/uL Hgb 10.7 L (12.0-16.0) g/dL Hct 34.6 L (36-46) % MCV 71.4 L (80-100) fL MCH 22.2 L (26-34) PG MCHC 31.0 (30-36) % RDW 17.6 H (11.6-14.8) % Plt Count 242 (150-400) X10^3/uL Neut % (Auto) 62.5 (50-75) % Lymph % (Auto) 25.6 (25-40) % [place] % (Auto) 8.4 (3-14) % Eos % (Auto) 2.6 (2-4) % Baso % (Auto) 0.9 (0-2) % Neut # (Auto) 4000 (7734-1604) /uL Lymph # (Auto) 1700 (7047-8670) /uL [place] # (Auto) 500 (0-900) /uL Eos # (Auto) 200 (0-450) /uL Baso # (Auto) 100 (0-100) /uL PT 16.4 H (9.4-12.5) SECONDS INR 1.5 H (0.9-1.3) APTT 37 H (25.1-36.5) SECONDS Sodium 138 (137-145) mmol/L Potassium 4.3 (3.4-5.1) mmol/L Chloride 100 (98-107) mmol/L Carbon Dioxide 30 (22-32) mmol/L BUN 31 H (7-17) mg/dL Creatinine 1.35 H (0.52-1.04) mg/dL Estimated GFR 43 L (>60) mL/min BUN/Creatinine Ratio 23.0 H (6-22) Glucose 92 (70-99) mg/dL Lactate 1.4 (0.7-2.1) mmol/L Calcium 8.8 (8.4-10.2) mg/dL Magnesium 2.2 (1.6-2.3) mg/dL Total Bilirubin 0.5 (0.2-1.3) mg/dL AST 29 (14-36) IU/L ALT 19 (<35) IU/L Alkaline Phosphatase 96 (38-126) U/L Total Creatine Kinase 56 (30-135) U/L Troponin I 0.051 H 0.048 H (0.01-0.034) ng/mL NT-Pro-B Natriuret Pep 36812 H (<125) pg/mL Total Protein 7.4 (6.3-8.2) g/dL Albumin 4.3 (3.5-5.0) g/dL Globulin 3.1 (1.7-4.1) g/dL Albumin/Globulin Ratio 1.4 (1.0-2.8) Lipase 61 (23-300) U/L Imaging Data Chest x-ray: Radiologist's Impression: PROCEDURE: XR CHEST 1V INDICATIONS: Chest Pain TECHNIQUE: One view of the chest was acquired. COMPARISON: [facility], CR, XR CHEST 1V, 11/05/2024, 17:58. FINDINGS: Surgical changes and devices: Sternal wires. Interval placement left-sided pacemaker with intact leads. Lungs and pleura: Lungs are clear. No pleural effusions or pneumothorax. Mediastinum: Mediastinal contours appear normal. Heart size is enlarged. Bones and chest wall: No suspicious bony lesions. Overlying soft tissues appear unremarkable. IMPRESSION: No acute pulmonary process. Dictated by: Melody Anglin M.D. on 12/26/2024 at 18:07 Approved by: Melody Anglin M.D. on 12/26/2024 at 18:08 ECG Data Attestation: I personally reviewed and interpreted this ECG as follows: Interpretation: Paced rhythm rate 103 NE interval 122 QRS [address] changes or T-wave inversions MDM Narrative Medical decision making narrative: MDM CC: Cough Complicating co-morbidities: Congestive heart failure pacemaker Data collected from: Patient Medical records reviewed: Previous ED visits Differential considered: Congestive heart failure acute coronary syndrome reactive airway Exam documented above, pertinent findings include: Alert 69-year-old female breath sounds are clear no respiratory distress speaks in full sentences no peripheral edema. She was noted to have reactive airway like cough with deep breathing. Lab Test results independently reviewed as above. Pertinent findings: Troponin 0.051, repeat 0.048 BNP 10,000 previously 15,800 Electrolytes within normal limits creatinine 1.35 Lactate 1.4 CBC no leukocytosis and anemia is stable Independently reviewed EKG as above paced rhythm no ischemia Imaging studies independently reviewed: Chest x-ray no acute process Treatments: Albuterol Re-evaluations: It did help somewhat with her, Discussion: Patient 69-year-old female extra does have cough with deep breathing. No significant wheezing no obvious peripheral edema. She does have pretty significant congestive heart failure with pacemaker AICD. No evidence of infection or pneumonia. Not convinced this is congestive heart failure x-ray is clear without peripheral edema and BNP is lower than what it has been. She does not feel like it is her congestive heart failure. She actually did improve somewhat with albuterol nebulizer. She has an albuterol inhaler with spacer at home. At this time no infection no need for antibiotic. Discharge Plan Departure Patient Disposition: Home Clinical Impression: CHF (congestive heart failure) Instructions: DI for Heart Failure Activity Restrictions/Additional Instructions: *You have been diagnosed with congestive heart failure *What to do: I do not think your congestive heart failure is acting up today. *Continue to take medications as directed I would use albuterol 1-2 puffs every 4 hours if needed for coughing spells *Follow up with your primary care provider in 2-3 days or call [phone] *Return to ER if you should have increasing shortness of breath swelling chest pain or any new, worsening or concerning symptoms Prescriptions: No Action acetaminophen 325 mg Tablet 650 mg PO Q6H PRN (Reason: Pain, Mild) torsemide 20 mg Tablet 60 mg PO DAILY Rx Instructions: to start this dose tomorrow 10/20/24 trazodone 50 mg Tablet 150 mg PO BEDTIME PRN (Reason: Insomnia) spironolactone 25 mg Tablet 25 mg PO DAILY nortriptyline 25 mg Capsule 50 mg PO BEDTIME magnesium hydroxide 400 mg/5 mL Suspension 400 mg PO BEDTIME PRN (Reason: Constipation) nitroglycerin 0.4 mg Tablet, Sublingual 0.4 mg SUBLINGUAL Q5-15M PRN (Reason: Chest Pain) Rx Instructions: do not exceed 3 doses per episode ondansetron 4 mg Tablet,Disintegrating 4 mg PO Q6H PRN (Reason: Nausea) buspirone 15 mg Tablet 15 mg PO BID omeprazole 20 mg Tablet,Delayed Release (Dr/Ec) 20 mg PO DAILY venlafaxine 75 mg Tablet Extended Release 24hr 225 mg PO DAILY empagliflozin 10 mg Tablet 10 mg PO DAILY sacubitril-valsartan [Entresto] 24-26 mg Tablet 1 tab BID Rx Instructions: just prescribed today 10/19/24 has not started yet aspirin 81 mg tablet,delayed release (DR/EC) 81 mg PO DAILY albuterol sulfate 90 mcg/actuation HFA aerosol inhaler 2 puff inhalation Q4H PRN (Reason: Wheezing) diclofenac sodium 1 % Gel 2 g TOPICAL QID Rx Instructions: apply to single elbow, wrist or hand; for hand includes palm/fingers/back of hand Eliquis 5 mg tablet 5 mg PO BID Referrals: Miscellaneous,Doctor, MD [Primary Care Provider] - Stand Alone Forms: Patient Portal/API/Survey
[2024-12-26] MEDS: ALBUTEROL/IPRATROPIUM 3 ML AMPUL INH (19:59)
[2024-12-26 20:44] LABS: Troponin I 0.048 ng/mL (0.01-0.034)
== END 2024-12-26 22:05 | disposition home or self-care (01) ==
PROVIDERS: Emergency Medicine; Emergency Provider Emergency Medicine
DX: I50.9 Heart failure, unspecified (principal); R07.9 Chest pain, unspecified; Z95.0 Presence of cardiac pacemaker
CPT/HCPCS: 36415; 71045; 80053; 82550; 83605; 83690; 83735; 83880; 84484; 85025; 85610; 85730; 93005; 99284

== ENCOUNTER 2025-01-31 14:52 | Emergency (ER) | payer OTHER, MEDICAID, SELFPAY ==
[2025-01-31] VITALS (11 sets, daily range): BP systolic 93–100; BP diastolic 52–67; PULSE 90–100; RESP 16–20; TEMP 36.6; O2SAT 95–98; BMI 27.3
--- NOTE | 2025-01-31 14:55 | DI.RAD.S_ITS ---
PROCEDURE: XR CHEST 1V INDICATIONS: Cough TECHNIQUE: One view of the chest was acquired. COMPARISON: [facility], CR, XR CHEST 1V, 12/26/2024, 17:53. [facility], CR, XR CHEST 1V, 11/05/2024, 17:58. FINDINGS: Surgical changes and devices: Right chest wall pacemaker. Median sternotomy wires. Lungs and pleura: Lungs are clear. No pleural effusions or pneumothorax. Mediastinum: Mediastinal contours appear normal. Heart size is enlarged, stable. Bones and chest wall: No suspicious bony lesions. Overlying soft tissues appear unremarkable. IMPRESSION: No acute pulmonary abnormality is seen. Dictated by: Jose Angel Page M.D. on 01/31/2025 at 15:32 Approved by: Jose Angel Page M.D. on 01/31/2025 at 15:32
--- NOTE | 2025-01-31 15:01 | ED.GENADULT ---
HPI - General Adult General Chief complaint: Shortness of Breath/Dyspnea Stated complaint: cough x 2 months Time Seen by Provider: 01/31/25 14:54 History of Present Illness HPI narrative: Patient is a 69-year-old female with a past medical history of end-stage CHF with a pacemaker last EF 10% presenting for a nonproductive cough. Has been intermittent and persistent for the past 2 months, was seen here on 12/26/2024 for the same. At that time she was proximally 1 month status post pacemaker at [facility]. She states that since then she has been having persistent nonproductive coughs. She states that this only started after starting Entresto. Patient denies any actual chest pain or any other symptoms at this time. Related Data Home Medications ?Medication ?Instructions ?Recorded ?Confirmed acetaminophen 325 mg tablet 650 mg PO Q6H PRN Pain, Mild 07/26/24 10/19/24 buspirone 15 mg tablet 15 mg PO BID 07/26/24 10/19/24 empagliflozin 10 mg tablet 10 mg PO DAILY 07/26/24 10/19/24 magnesium hydroxide 400 mg/5 mL 400 mg PO BEDTIME PRN Constipation 07/26/24 10/19/24 oral suspension nitroglycerin 0.4 mg sublingual 0.4 mg sublingual Q5-15M PRN Chest 07/26/24 10/19/24 tablet Pain nortriptyline 25 mg capsule 50 mg PO BEDTIME 07/26/24 10/19/24 omeprazole 20 mg tablet,delayed 20 mg PO DAILY 07/26/24 10/19/24 release ondansetron 4 mg disintegrating 4 mg PO Q6H PRN Nausea 07/26/24 10/19/24 tablet spironolactone 25 mg tablet 25 mg PO DAILY 07/26/24 10/19/24 torsemide 20 mg tablet 60 mg PO DAILY 07/26/24 10/19/24 trazodone 50 mg tablet 150 mg PO BEDTIME PRN Insomnia 07/26/24 10/19/24 venlafaxine 75 mg tablet,extended 225 mg PO DAILY 07/26/24 10/19/24 release 24 hr albuterol sulfate 90 mcg/actuation 2 puff inhalation Q4H PRN Wheezing 10/19/24 10/19/24 aerosol inhaler apixaban 5 mg tablet (Eliquis) 5 mg PO BID 10/19/24 10/19/24 aspirin 81 mg tablet,delayed 81 mg PO DAILY 10/19/24 10/19/24 release diclofenac sodium 1 % topical gel 2 g topical QID 10/19/24 10/19/24 sacubitril 24 mg-valsartan 26 mg 1 tab BID 10/19/24 10/19/24 tablet (Entresto) Previous Rx's ?Medication ?Instructions ?Recorded benzonatate 100 mg capsule 100 mg PO TID PRN cough 1 week #21 01/31/25 caps Allergies Allergy/AdvReac Type Severity Reaction Status Date / Time divalproex sodium (From AdvReac Verified 12/26/24 18:00 Depakote) metoprolol AdvReac Nausea Verified 12/26/24 18:00 sertraline (From Zoloft) AdvReac Nausea Verified 12/26/24 18:00 sumatriptan AdvReac Palpitation Verified 12/26/24 18:00 s Review of Systems Review of Systems Narrative: General: Denies fever, chills, weight loss HEENT: Denies headache, eye drainage, eye irritation, head trauma, sore throat, voice change Cardiovascular: Denies any chest pain, palpitations, tachycardia Respiratory: Positive cough Denies any shortness of breath, wheeze, stridor GI/: Denies any abdominal pain, nausea, vomiting, diarrhea, bright red blood per rectum, melanotic stools, urinary frequency, urinary retention, dysuria, hematuria MSK: Denies any joint pain, muscle pains, swelling Skin: Denies any rashes, lesions, discoloration Neuro: Denies any headache, lightheadedness, dizziness, fainting, weakness Psych: Denies SI/HI Patient History Social History household members: other Exam Narrative Exam Narrative: General: Cooperative, well-developed, not in acute distress HEENT: Normocephalic, atraumatic, PERRLA, normal sclera, eyelids normal Neck: Active full range of motion, atraumatic Chest: Normal to inspection, negative crepitus, no overlying erythema ecchymosis Respiratory: Patient coughing on exam Normal respiratory effort, not in acute respiratory distress, clear to auscultation bilaterally negative wheeze, tachypnea, rhonchi, rales Cardiology: Regular rate rhythm negative gallop, murmur, rubs GI/: No tenderness to palpation, soft, non rigid, normal to inspection, exam deferred MSK: Full active range of motion in all 4 extremities, atraumatic, no tenderness to palpation of any bony prominences Skin: No rashes or lesions noted Neuro: Alert awake oriented x3, moves all 4 extremities spontaneously, cranial nerves intact, able to answer all questions appropriately follows commands appropriately Psych: Cooperative, negative suicidal or homicidal ideations Initial Vital Signs Initial Vital Signs: Vital Signs Pulse Rate 96 H 01/31/25 14:55 Pulse Oximetry 95 01/31/25 14:55 Course Orders Ordered: ED Orders 01/31/25 14:55 XR chest 1V Stat EKG-12 Lead Stat 01/31/25 15:15 Complete Blood Count AUTO DIFF Stat Comprehensive Metabolic Panel Stat Covid-19 + FLU A/B + RSV - PCR Stat Lipase Stat MAG [Magnesium] Stat NT-proBNP (BNP-Adult 18+) Stat Discontinued Medications Albuterol (Albuterol 2.5 Mg/3 Ml Neb (Adult)) 2.5 mg INH NOW ONE Stop: 01/31/25 14:55 Last Admin: 01/31/25 15:14 Dose: 2.5 mg Documented By: GALILEA Benzonatate (Benzonatate 100 Mg Capsule) 100 mg PO NOW ONE Stop: 01/31/25 15:00 Last Admin: 01/31/25 15:47 Dose: 100 mg Documented By: RICCI Vital Signs Vital signs: Vital Signs - 8 hr 01/31/25 14:55 01/31/25 14:58 01/31/25 14:58 Temperature Pulse Rate 96 H 97 H Respiratory Rate Blood Pressure 93/52 L Pulse Oximetry 95 98 Oxygen Delivery Method 01/31/25 15:00 01/31/25 15:02 01/31/25 15:19 Temperature 97.8 F Pulse Rate 97 H 98 H 95 H Respiratory Rate 16 Blood Pressure 93/52 L Pulse Oximetry 97 96 97 Oxygen Delivery Method Room Air 01/31/25 15:25 01/31/25 15:30 Temperature Pulse Rate 90 Respiratory Rate 20 Blood Pressure 94/52 L Pulse Oximetry 97 Oxygen Delivery Method Room Air Medical Decision Making Differential Diagnosis Differential Diagnosis: Pneumonia, electrolyte abnormality, drug induced cough Lab Data 01/31/25 15:15 01/31/25 15:15 Labs: Lab Results 01/31/25 Range/Units 15:15 WBC 6.7 (4.5-11.0) X10^3/uL RBC 4.77 (4.0-5.2) X10^6/uL Hgb 10.3 L (12.0-16.0) g/dL Hct 33.5 L (36-46) % MCV 70.3 L (80-100) fL MCH 21.6 L (26-34) PG MCHC 30.7 (30-36) % RDW 18.8 H (11.6-14.8) % Plt Count 239 (150-400) X10^3/uL Neut % (Auto) 64.7 (50-75) % Lymph % (Auto) 24.4 L (25-40) % [place] % (Auto) 7.8 (3-14) % Eos % (Auto) 1.7 L (2-4) % Baso % (Auto) 1.4 (0-2) % Neut # (Auto) 4400 (1444-1792) /uL Lymph # (Auto) 1600 (8048-7061) /uL [place] # (Auto) 500 (0-900) /uL Eos # (Auto) 100 (0-450) /uL Baso # (Auto) 100 (0-100) /uL Sodium 136 L (137-145) mmol/L Potassium 4.7 (3.4-5.1) mmol/L Chloride 98 (98-107) mmol/L Carbon Dioxide 28 (22-32) mmol/L BUN 43 H (7-17) mg/dL Creatinine 1.69 H (0.52-1.04) mg/dL Estimated GFR 33 L (>60) mL/min BUN/Creatinine Ratio 25.4 H (6-22) Glucose 90 (70-99) mg/dL Calcium 8.9 (8.4-10.2) mg/dL Magnesium 2.7 H (1.6-2.3) mg/dL Total Bilirubin 0.7 (0.2-1.3) mg/dL AST 31 (14-36) IU/L ALT 19 (<35) IU/L Alkaline Phosphatase 98 (38-126) U/L NT-Pro-B Natriuret Pep 22069 H (<125) pg/mL Total Protein 7.1 (6.3-8.2) g/dL Albumin 4.3 (3.5-5.0) g/dL Globulin 2.8 (1.7-4.1) g/dL Albumin/Globulin Ratio 1.5 (1.0-2.8) Lipase 44 (23-300) U/L Imaging Data Chest x-ray: Radiologist's Impression: [address] [address] XRay Report Signed Patient: Mone Erazo MR#: [id number] : 1955 Acct:[id number] Age/Sex: 69 / F Date of Service: 01/31/25 Loc: ED Accession Number: [id number] Procedure: XR chest 1V Ordering Provider: Peter Cooper D.O. PROCEDURE: XR CHEST 1V INDICATIONS: Cough TECHNIQUE: One view of the chest was acquired. COMPARISON: [facility], CR, XR CHEST 1V, 12/26/2024, 17:53. [facility], CR, XR CHEST 1V, 11/05/2024, 17:58. FINDINGS: Surgical changes and devices: Right chest wall pacemaker. Median sternotomy wires. Lungs and pleura: Lungs are clear. No pleural effusions or pneumothorax. Mediastinum: Mediastinal contours appear normal. Heart size is enlarged, stable. Bones and chest wall: No suspicious bony lesions. Overlying soft tissues appear unremarkable. IMPRESSION: No acute pulmonary abnormality is seen. ECG Data Interpretation: EKG interpreted by ED physician, atrially sensed ventricularly paced at 101 MDM Narrative Medical decision making narrative: Patient is a 69-year-old female with a past medical history of end-stage CHF EF of 10% status post pacemaker placement a proximally 3 months ago. She states that ever since then she was started on Entresto and started having a dry nonproductive cough has been seen here 1 month ago for the same. Patient not complaining of any actual chest pain or shortness of breath just complaining of a dry cough. Patient states that she did have some mild improvement with an albuterol treatment here but states that she has been suffering from this cough for the past 2 months ever since she started the medication. Patient had lab work performed here without any acute findings. Patient less likely an acute CHF given chest x-ray without any pleural effusion not requiring any supplemental oxygen BNP at baseline, I do believe that her symptoms are more secondary to drug induced cough, I informed patient that she should follow up with her guide rail cleaner to discuss possible other medication changes. She verbalized understanding of this and agrees to being discharged home with outpatient follow up Discharge Plan Departure Patient Disposition: Home Clinical Impression: Cough Activity Restrictions/Additional Instructions: Please follow up with your primary care doctor and your cardiology team discuss possible medication change to address your coughing Please read the discharge instructions sheet carefully and bring all papers to all doctor follow-up visits, as it may contain information that your doctor may want to see. Disease processes change and evolve, if your symptoms worsen or if you develop any new symptoms that are concerning to you please return for evaluation. Your evaluation today does not show any evidence of any life-threatening/serious illnesses requiring admission to the hospital or surgery. Please follow-up with your doctor for re-evaluation in approximately 1 day. Seek immediate medical attention for any worrisome symptoms. *If you do not have a primary care provider please contact the [facility] Resource line at [phone]. They will ask some questions about your medical history and help get you set up with a doctor in the community. Prescriptions: New benzonatate 100 mg capsule 100 mg PO TID PRN (Reason: cough) 7 Days Qty: 21 0RF No Action acetaminophen 325 mg Tablet 650 mg PO Q6H PRN (Reason: Pain, Mild) torsemide 20 mg Tablet 60 mg PO DAILY Rx Instructions: to start this dose tomorrow 10/20/24 trazodone 50 mg Tablet 150 mg PO BEDTIME PRN (Reason: Insomnia) spironolactone 25 mg Tablet 25 mg PO DAILY nortriptyline 25 mg Capsule 50 mg PO BEDTIME magnesium hydroxide 400 mg/5 mL Suspension 400 mg PO BEDTIME PRN (Reason: Constipation) nitroglycerin 0.4 mg Tablet, Sublingual 0.4 mg SUBLINGUAL Q5-15M PRN (Reason: Chest Pain) Rx Instructions: do not exceed 3 doses per episode ondansetron 4 mg Tablet,Disintegrating 4 mg PO Q6H PRN (Reason: Nausea) buspirone 15 mg Tablet 15 mg PO BID omeprazole 20 mg Tablet,Delayed Release (Dr/Ec) 20 mg PO DAILY venlafaxine 75 mg Tablet Extended Release 24hr 225 mg PO DAILY empagliflozin 10 mg Tablet 10 mg PO DAILY sacubitril-valsartan [Entresto] 24-26 mg Tablet 1 tab BID Rx Instructions: just prescribed today 10/19/24 has not started yet aspirin 81 mg tablet,delayed release (DR/EC) 81 mg PO DAILY albuterol sulfate 90 mcg/actuation HFA aerosol inhaler 2 puff inhalation Q4H PRN (Reason: Wheezing) diclofenac sodium 1 % Gel 2 g TOPICAL QID Rx Instructions: apply to single elbow, wrist or hand; for hand includes palm/fingers/back of hand Eliquis 5 mg tablet 5 mg PO BID Referrals: Miscellaneous,Doctor, MD [Primary Care Provider, Medical] Stand Alone Forms: Patient Portal/API
[2025-01-31] MEDS: ALBUTEROL 2.5 MG/3 ML NEB (ADULT) INH (15:14)
[2025-01-31 15:24] LABS: Add Manual Diff / Slide Review NO; Basophils Absolute Auto 100 /uL (0-100); Basophils Percent Auto 1.4 % (0-2); Eosinophils Absolute Auto 100 /uL (0-450); Eosinophils Percent Auto 1.7 % (2-4); Hematocrit 33.5 % (36-46); Hemoglobin 10.3 g/dL (12.0-16.0); Lymphocytes Absolute Auto 1600 /uL (1100-4500); Lymphocytes Percent Auto 24.4 % (25-40); Mean Corpuscular HGB Conc 30.7 % (30-36); Mean Corpuscular Hemoglobin 21.6 PG (26-34); Mean Corpuscular Volume 70.3 fL (80-100); Monocytes Absolute Auto 500 /uL (0-900); Monocytes Percent Auto 7.8 % (3-14); Neutrophils Absolute Auto 4400 /uL (1500-7000); Neutrophils Percent Auto 64.7 % (50-75); Platelet Count 239 X10^3/uL (150-400); Red Blood Cell Count 4.77 X10^6/uL (4.0-5.2); Red Cell Distribution Width 18.8 % (11.6-14.8); White Blood Cell Count 6.7 X10^3/uL (4.5-11.0)
[2025-01-31 15:39] LABS: Alanine Aminotransferase 19 IU/L (<35); Albumin 4.3 g/dL (3.5-5.0); Albumin Globulin Ratio 1.5 (1.0-2.8); Alkaline Phosphatase 98 U/L (38-126); Aspartate Aminotransferase 31 IU/L (14-36); BUN Creatinine Ratio 25.4 (6-22); Bilirubin Total 0.7 mg/dL (0.2-1.3); Blood Urea Nitrogen 43 mg/dL (7-17); Calcium 8.9 mg/dL (8.4-10.2); Carbon Dioxide 28 mmol/L (22-32); Chloride 98 mmol/L (98-107); Estimated Glomerular Filt Rate 33 mL/min (>60); Globulin 2.8 g/dL (1.7-4.1); Glucose 90 mg/dL (70-99); HEMOLYSIS < 15 (0-50); Lipase 44 U/L (23-300); Potassium 4.7 mmol/L (3.4-5.1); Sodium 136 mmol/L (137-145); Total Protein 7.1 g/dL (6.3-8.2)
[2025-01-31 15:40] LABS: Magnesium 2.7 mg/dL (1.6-2.3)
[2025-01-31] MEDS: BENZONATATE 100 MG CAPSULE PO (15:47)
[2025-01-31 15:48] LABS: NT-proBNP (BNP-Adult 18+) 13900 pg/mL (<125)
--- NOTE | 2025-01-31 15:50 | EKG_ITS ---
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
[2025-01-31 16:27] LABS: COVID-19 CEPHEID 4-PLEX PCR Negative (Negative); Influenza A - CEPHEID Flu A NEGATIVE (NEGATIVE); Influenza B - CEPHEID Flu B NEGATIVE (NEGATIVE); Respiratory Syncytial Virus Negative (Negative)
== END 2025-01-31 16:33 | disposition home or self-care (01) ==
PROVIDERS: Emergency Provider Student in an Organized Health Care Education/Training Program
DX: R05.9 Cough, unspecified (principal); I50.9 Heart failure, unspecified; Z95.0 Presence of cardiac pacemaker
CPT/HCPCS: 0241U; 36415; 71045; 80053; 83690; 83735; 83880; 85025; 93005; 94640; 99284; J7613

== ENCOUNTER 2025-02-07 16:41 | Emergency (ER) | payer OTHER, MEDICAID, SELFPAY ==
[2025-02-07] VITALS (20 sets, daily range): BP systolic 86–111; BP diastolic 48–61; PULSE 88–100; RESP 16–34; TEMP 37; O2SAT 92–100; BMI 27.9
--- NOTE | 2025-02-07 16:46 | DI.RAD.S_ITS ---
PROCEDURE: XR CHEST 1V INDICATIONS: Shortness of breath TECHNIQUE: One view of the chest was acquired. COMPARISON: [facility], , XR CHEST 1V, 01/31/2025, 15:09. FINDINGS: Surgical changes and devices: Right chest wall pacemaker position is unchanged. Median sternotomy wires and surgical clips are also noted. Lungs and pleura: Mild pulmonary vascular congestion. No definite focal infiltrate. No pleural effusions or pneumothorax. Mediastinum: Mediastinal contours appear normal. Heart size is enlarged. Bones and chest wall: No suspicious bony lesions. Overlying soft tissues appear unremarkable. IMPRESSION: Cardiomegaly and mild congestion. No definite focal infiltrate. No pleural effusion or pneumothorax. Dictated by: Hima Pierre M.D. on 02/07/2025 at 17:08 Approved by: Hima Pierre M.D. on 02/07/2025 at 17:08
--- NOTE | 2025-02-07 16:46 | EKG_ITS ---
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
[2025-02-07 18:07] LABS: Add Manual Diff / Slide Review NO; Hematocrit 33.0 % (36-46); Hemoglobin 9.9 g/dL (12.0-16.0); Lymphocytes Absolute Auto 1200 /uL (1100-4500); Mean Corpuscular HGB Conc 30.1 % (30-36); Mean Corpuscular Hemoglobin 21.0 PG (26-34); Mean Corpuscular Volume 69.7 fL (80-100); Platelet Count 236 X10^3/uL (150-400)
[2025-02-07 18:10] LABS: INR 2.2 (0.9-1.3); Prothrombin Time 24.2 SECONDS (9.4-12.5)
[2025-02-07 18:20] LABS: Microcytosis 1+; Ovalocytes 1+
--- NOTE | 2025-02-07 18:27 | ED.SOB ---
HPI - SOB/Dyspnea General Chief Complaint: Shortness of Breath/Dyspnea Stated Complaint: SOB Time Seen by Provider: 02/07/25 18:02 Source: EMS Mode of arrival: EMS History of Present Illness HPI Narrative: 69-year-old female with history of congestive heart failure, use of inhalers in the past, long term resident, prior pulmonary embolism on Eliquis anticoagulation, feels more short of breath over the last few days. Denies change in medications or missing of regular medication doses. No fevers or chills. Denies cough. Denies pain swelling to leg recent although has happened in the distant past, less swelling to legs recent weeks. Related Data Home Medications ?Medication ?Instructions ?Recorded ?Confirmed acetaminophen 325 mg tablet 650 mg PO Q6H PRN Pain, Mild 07/26/24 10/19/24 buspirone 15 mg tablet 15 mg PO BID 07/26/24 10/19/24 empagliflozin 10 mg tablet 10 mg PO DAILY 07/26/24 10/19/24 magnesium hydroxide 400 mg/5 mL 400 mg PO BEDTIME PRN Constipation 07/26/24 10/19/24 oral suspension nitroglycerin 0.4 mg sublingual 0.4 mg sublingual Q5-15M PRN Chest 07/26/24 10/19/24 tablet Pain nortriptyline 25 mg capsule 50 mg PO BEDTIME 07/26/24 10/19/24 omeprazole 20 mg tablet,delayed 20 mg PO DAILY 07/26/24 10/19/24 release ondansetron 4 mg disintegrating 4 mg PO Q6H PRN Nausea 07/26/24 10/19/24 tablet spironolactone 25 mg tablet 25 mg PO DAILY 07/26/24 10/19/24 torsemide 20 mg tablet 60 mg PO DAILY 07/26/24 10/19/24 trazodone 50 mg tablet 150 mg PO BEDTIME PRN Insomnia 07/26/24 10/19/24 venlafaxine 75 mg tablet,extended 225 mg PO DAILY 07/26/24 10/19/24 release 24 hr albuterol sulfate 90 mcg/actuation 2 puff inhalation Q4H PRN Wheezing 10/19/24 10/19/24 aerosol inhaler apixaban 5 mg tablet (Eliquis) 5 mg PO BID 10/19/24 10/19/24 aspirin 81 mg tablet,delayed 81 mg PO DAILY 10/19/24 10/19/24 release diclofenac sodium 1 % topical gel 2 g topical QID 10/19/24 10/19/24 sacubitril 24 mg-valsartan 26 mg 1 tab BID 10/19/24 10/19/24 tablet (Entresto) Allergies Allergy/AdvReac Type Severity Reaction Status Date / Time divalproex sodium (From AdvReac Verified 12/26/24 18:00 Depakote) metoprolol AdvReac Nausea Verified 12/26/24 18:00 sertraline (From Zoloft) AdvReac Nausea Verified 12/26/24 18:00 sumatriptan AdvReac Palpitation Verified 12/26/24 18:00 s Patient History Social History household members: other Exam Narrative Exam Narrative: GENERAL: Well-developed patient, in mild distress. HEAD: Atraumatic. Normocephalic. EYES: Pupils equal round and reactive. Extraocular motions intact. No scleral icterus. No injection or drainage. ENT: Nose without bleeding, purulent drainage. Throat without erythema, tonsillar hypertrophy or exudate. Airway patent. NECK: Trachea midline. Non tender CARDIOVASCULAR: Regular rate and rhythm without murmurs, gallops, or rubs. RESPIRATORY: Clear to auscultation. Breath sounds equal bilaterally. No wheezes, rales, or rhonchi. GASTROINTESTINAL: Abdomen soft, non-tender, nondistended. EXTREMITIES: No edema or joint tenderness. BACK: Nontender without deformity or crepitance. No flank tenderness. NEURO: AOx3. Motor functions grossly nonfocal. SKIN: No rash or erythema of visible areas Initial Vital Signs Initial Vital Signs: Vital Signs Temperature 98.6 F 02/07/25 16:41 Pulse Rate 88 02/07/25 16:41 Respiratory Rate 34 H 02/07/25 16:41 Blood Pressure 110/48 L 02/07/25 16:41 Pulse Oximetry 96 02/07/25 16:41 Oxygen Delivery Method Room Air 02/07/25 16:41 Course Orders Ordered: ED Orders 02/07/25 16:46 XR chest 1V Stat EKG-12 Lead Stat RT Consult Eval and Treat STAT 02/07/25 17:53 Complete Blood Count AUTO DIFF Stat Comprehensive Metabolic Panel Stat Lactate (Lactic Acid) Stat NT-proBNP (BNP-Adult 18+) Stat Prothrombin Time INR Stat Troponin I Stat 02/07/25 19:50 Troponin I Stat 02/07/25 20:55 Covid-19 + FLU A/B + RSV - PCR Stat Discontinued Medications Albuterol/Ipratropium (Albuterol/Ipratropium 3 Ml Ampul) 3 ml INH NOW ONE Stop: 02/07/25 18:32 Last Admin: 02/07/25 18:54 Dose: 3 ml Documented By: JZF Furosemide (Furosemide 40 Mg/4 Ml Vial) 40 mg IV NOW ONE Stop: 02/07/25 19:08 Last Admin: 02/07/25 19:50 Dose: 40 mg Documented By: RLC Methylprednisolone (Methylprednisolone 125 Mg/2 Ml Vial) 125 mg IV NOW ONE Stop: 02/07/25 18:32 Last Admin: 02/07/25 18:50 Dose: 125 mg Documented By: OLGA Vital Signs Vital signs: Vital Signs - 8 hr 02/07/25 17:30 02/07/25 17:30 02/07/25 17:40 Pulse Rate 90 Respiratory Rate 21 Blood Pressure 90/58 L 97/58 L Pulse Oximetry 97 Oxygen Delivery Method 02/07/25 17:40 02/07/25 17:55 02/07/25 17:55 Pulse Rate 90 92 H Respiratory Rate 16 21 Blood Pressure 99/55 L Pulse Oximetry 96 94 Oxygen Delivery Method 02/07/25 18:00 02/07/25 18:01 02/07/25 18:01 Pulse Rate 92 H 92 H Respiratory Rate 16 22 Blood Pressure 111/55 L Pulse Oximetry 96 95 Oxygen Delivery Method 02/07/25 18:30 02/07/25 18:33 02/07/25 18:33 Pulse Rate 92 H 92 H Respiratory Rate 28 H 28 H Blood Pressure 98/53 L Pulse Oximetry 92 96 Oxygen Delivery Method 02/07/25 18:40 02/07/25 18:40 02/07/25 18:54 Pulse Rate 93 H 92 H Respiratory Rate 23 18 Blood Pressure 91/50 L Pulse Oximetry 95 100 Oxygen Delivery Method Room Air 02/07/25 19:00 02/07/25 19:00 02/07/25 19:30 Pulse Rate 93 H 96 H Respiratory Rate 17 26 H Blood Pressure 101/58 L Pulse Oximetry 100 96 Oxygen Delivery Method 02/07/25 20:00 02/07/25 20:00 02/07/25 20:30 Pulse Rate 96 H 98 H Respiratory Rate 27 H 27 H Blood Pressure 102/61 Pulse Oximetry 97 95 Oxygen Delivery Method 02/07/25 20:41 02/07/25 20:41 02/07/25 21:00 Pulse Rate 100 H 100 H Respiratory Rate 25 H 24 Blood Pressure 97/60 Pulse Oximetry 96 95 Oxygen Delivery Method Room Air MDM - SOB/Dyspnea Lab Data Attestation: I reviewed the patient's lab results. Lab results narrative: White blood cell count 6800, hemoglobin 9.9, platelets adequate. Glucose 97. BUN 55 with creatinine 2.13. Serum CO2 27. Sodium 132, potassium 5.6. BNP 94407 elevated, has been higher in the past and similarly of elevated in the past. Troponin measurable but low indeterminate range on serial labs. Liver functions normal. Lactate normal. COVID flu influenza negative. 02/07/25 17:53 02/07/25 17:53 Labs: Lab Results 02/07/25 02/07/25 02/07/25 Range/Units 17:53 19:50 20:55 WBC 6.8 (4.5-11.0) X10^3/uL RBC 4.74 (4.0-5.2) X10^6/uL Hgb 9.9 L (12.0-16.0) g/dL Hct 33.0 L (36-46) % MCV 69.7 L (80-100) fL MCH 21.0 L (26-34) PG MCHC 30.1 (30-36) % RDW 18.6 H (11.6-14.8) % Plt Count 236 (150-400) X10^3/uL Neut % (Auto) 73.2 (50-75) % Lymph % (Auto) 17.7 L (25-40) % [place]iken % (Auto) 7.0 (3-14) % Eos % (Auto) 1.2 L (2-4) % Baso % (Auto) 0.9 (0-2) % Neut # (Auto) 5000 (9578-6925) /uL Lymph # (Auto) 1200 (2532-3748) /uL Aiken # (Auto) 500 (0-900) /uL Eos # (Auto) 100 (0-450) /uL Baso # (Auto) 100 (0-100) /uL RBC Morphology See below Microcytosis 1+ H Ovalocytes 1+ H PT 24.2 H (9.4-12.5) SECONDS INR 2.2 H (0.9-1.3) Sodium 132 L (137-145) mmol/L Potassium 5.6 H (3.4-5.1) mmol/L Chloride 96 L (98-107) mmol/L Carbon Dioxide 27 (22-32) mmol/L BUN 55 H (7-17) mg/dL Creatinine 2.13 H (0.52-1.04) mg/dL Estimated GFR 25 L (>60) mL/min BUN/Creatinine Ratio 25.8 H (6-22) Glucose 97 (70-99) mg/dL Lactate 1.4 (0.7-2.1) mmol/L Calcium 8.5 (8.4-10.2) mg/dL Total Bilirubin 0.9 (0.2-1.3) mg/dL AST 31 (14-36) IU/L ALT 20 (<35) IU/L Alkaline Phosphatase 110 (38-126) U/L Troponin I 0.035 H 0.036 H (0.01-0.034) ng/mL NT-Pro-B Natriuret Pep 85230 H (<125) pg/mL Total Protein 7.0 (6.3-8.2) g/dL Albumin 4.2 (3.5-5.0) g/dL Globulin 2.8 (1.7-4.1) g/dL Albumin/Globulin Ratio 1.5 (1.0-2.8) SARS-CoV-2 (PCR) Negative (Negative) Influenza A (RT-PCR) Flu a negative (NEGATIVE) Influenza B (RT-PCR) Flu b negative (NEGATIVE) RSV (PCR) Negative (Negative) Imaging Data Chest x-ray: Radiologist's Impression: [address] [address] XRay Report Signed Patient: Mone Erazo MR#: [id number] : 1955 Acct:[id number] Age/Sex: 69 / F Date of Service: 02/07/25 Loc: ED Accession Number: [id number] Procedure: XR chest 1V Ordering Provider: Karla Padilla D.O. PROCEDURE: XR CHEST 1V INDICATIONS: Shortness of breath TECHNIQUE: One view of the chest was acquired. COMPARISON: [facility], CR, XR CHEST 1V, 01/31/2025, 15:09. FINDINGS: Surgical changes and devices: Right chest wall pacemaker position is unchanged. Median sternotomy wires and surgical clips are also noted. Lungs and pleura: Mild pulmonary vascular congestion. No definite focal infiltrate. No pleural effusions or pneumothorax. Mediastinum: Mediastinal contours appear normal. Heart size is enlarged. Bones and chest wall: No suspicious bony lesions. Overlying soft tissues appear unremarkable. IMPRESSION: Cardiomegaly and mild congestion. No definite focal infiltrate. No pleural effusion or pneumothorax. Dictated by: Hima Pierre M.D. on 02/07/2025 at 17:08 Approved by: Hima Pierre M.D. on 02/07/2025 at 17:08 ECG Data Attestation: I personally reviewed and interpreted this ECG as follows: Interpretation: 1714, Ventricular paced rhythm with rate 91. QRS 162. QTC 528. MDM Narrative Medical decision making narrative: 69-year-old female has history of congestive heart failure and pulmonary embolism, on Eliquis anticoagulation. Denies chest pain. Speaks in full sentences, no oxygen requirement. No significant change after breathing treatment. Screening labs sent. EKG shows paced ventricular rhythm. Chest x-ray possible fluid overload, see radiology report, no mention of pulmonary infiltrates. Lab data: White blood cell count 6800, hemoglobin 9.9, platelets adequate. Glucose 97. BUN 55 with creatinine 2.13. Serum CO2 27. Sodium 132, potassium 5.6. BNP 27394 elevated, has been higher in the past and similarly of elevated in the past. Troponin measurable but low indeterminate range on serial labs, has been increased in the past. Liver functions normal. Lactate normal. COVID flu influenza negative. IV Lasix, oral Lokelma. Mild/slight hyperkalemia. Congestive heart failure, we will diurese with IV Lasix, patient agreeable. Patient has improved symptoms, able to ambulate in the department without significant shortness of breath, without desaturation. She feels comfortable with going home. Follow up with PCP advised. 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 Return precautions discussed. Discharged back to nursing care facility. Discharge Plan Departure Patient Disposition: Home Clinical Impression: Congestive heart failure Activity Restrictions/Additional Instructions: History of congestive heart failure, shortness of breath. Chest x-ray not suspicious for infection. Elevated BNP consistent with congestive heart failure, although not as elevated as some visits in the past. IV Lasix given, with some improvement of symptoms. No oxygen requirement. Able to ambulate in the department after IV Lasix diuresis of excess fluid, 90% or higher oxygenation on ambulation. Discharged back to your care facility. Continue chronic medication regimen for now. 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 Return earlier to this/nearest emergency department for any change worsening symptoms or any concerns prior. Prescriptions: No Action acetaminophen 325 mg Tablet 650 mg PO Q6H PRN (Reason: Pain, Mild) torsemide 20 mg Tablet 60 mg PO DAILY Rx Instructions: to start this dose tomorrow 10/20/24 trazodone 50 mg Tablet 150 mg PO BEDTIME PRN (Reason: Insomnia) spironolactone 25 mg Tablet 25 mg PO DAILY nortriptyline 25 mg Capsule 50 mg PO BEDTIME magnesium hydroxide 400 mg/5 mL Suspension 400 mg PO BEDTIME PRN (Reason: Constipation) nitroglycerin 0.4 mg Tablet, Sublingual 0.4 mg SUBLINGUAL Q5-15M PRN (Reason: Chest Pain) Rx Instructions: do not exceed 3 doses per episode ondansetron 4 mg Tablet,Disintegrating 4 mg PO Q6H PRN (Reason: Nausea) buspirone 15 mg Tablet 15 mg PO BID omeprazole 20 mg Tablet,Delayed Release (Dr/Ec) 20 mg PO DAILY venlafaxine 75 mg Tablet Extended Release 24hr 225 mg PO DAILY empagliflozin 10 mg Tablet 10 mg PO DAILY sacubitril-valsartan [Entresto] 24-26 mg Tablet 1 tab BID Rx Instructions: just prescribed today 10/19/24 has not started yet aspirin 81 mg tablet,delayed release (DR/EC) 81 mg PO DAILY albuterol sulfate 90 mcg/actuation HFA aerosol inhaler 2 puff inhalation Q4H PRN (Reason: Wheezing) diclofenac sodium 1 % Gel 2 g TOPICAL QID Rx Instructions: apply to single elbow, wrist or hand; for hand includes palm/fingers/back of hand Eliquis 5 mg tablet 5 mg PO BID Referrals: Miscellaneous,Doctor, MD [Primary Care Provider, Medical] Stand Alone Forms: Patient Portal/API
[2025-02-07 18:41] LABS: Lactate (Lactic Acid) 1.4 mmol/L (0.7-2.1)
[2025-02-07 18:42] LABS: Alanine Aminotransferase 20 IU/L (<35); Albumin 4.2 g/dL (3.5-5.0); Albumin Globulin Ratio 1.5 (1.0-2.8); Alkaline Phosphatase 110 U/L (38-126); Blood Urea Nitrogen 55 mg/dL (7-17); Calcium 8.5 mg/dL (8.4-10.2); Carbon Dioxide 27 mmol/L (22-32); Chloride 96 mmol/L (98-107); Estimated Glomerular Filt Rate 25 mL/min (>60); Globulin 2.8 g/dL (1.7-4.1); Glucose 97 mg/dL (70-99); HEMOLYSIS < 15 (0-50); Sodium 132 mmol/L (137-145); Total Protein 7.0 g/dL (6.3-8.2)
[2025-02-07 18:45] LABS: Potassium 5.6 mmol/L (3.4-5.1)
--- NOTE | 2025-02-07 18:51 | PC.NURSE ---
RT coming for breathing treatment and eval.
[2025-02-07 18:52] LABS: NT-proBNP (BNP-Adult 18+) 12500 pg/mL (<125); Troponin I 0.035 ng/mL (0.01-0.034)
[2025-02-07] MEDS: ALBUTEROL/IPRATROPIUM 3 ML AMPUL INH (18:54)
[2025-02-07] MEDS: FUROSEMIDE 40 MG/4 ML VIAL IV (19:50)
[2025-02-07 20:19] LABS: Troponin I 0.036 ng/mL (0.01-0.034)
--- NOTE | 2025-02-07 20:58 | PC.NURSE ---
Pt is able to tolerate PO fluids and an egg sandwich. Sats 90% RA w/ambulation. Pt reports feeling tired w/exertion but is ready to go home.
[2025-02-07 21:36] LABS: Influenza A - CEPHEID Flu A NEGATIVE (NEGATIVE); Influenza B - CEPHEID Flu B NEGATIVE (NEGATIVE)
[2025-02-07 21:43] LABS: COVID-19 CEPHEID 4-PLEX PCR Negative (Negative)
== END 2025-02-07 22:09 | disposition home or self-care (01) ==
PROVIDERS: Emergency Medicine; Emergency Provider Emergency Medicine
DX: I50.9 Heart failure, unspecified (principal); R06.02 Shortness of breath; Z86.711 Personal history of pulmonary embolism; Z79.01 Long term (current) use of anticoagulants
CPT/HCPCS: 36415; 71045; 80053; 83605; 83880; 84484; 85025; 85610; 87637; 93005; 93010; 94640; 96374; 96375; 99284; J1938; J2919

== ENCOUNTER 2025-04-19 10:09 | Emergency (ER) | payer OTHER, MEDICAID, SELFPAY ==
[2025-03-21 07:40] VITALS: BMI 27.7
[2025-04-19] VITALS (17 sets, daily range): BP systolic 96–109; BP diastolic 53–75; PULSE 95–102; RESP 18–30; TEMP 36.7; O2SAT 91–99; BMI 28.3
--- NOTE | 2025-04-19 10:35 | EKG_ITS ---
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
--- NOTE | 2025-04-19 10:36 | DI.RAD.S_ITS ---
PROCEDURE: XR CHEST 1V INDICATIONS: Shortness of breath TECHNIQUE: One view of the chest was acquired. COMPARISON: [facility], CR, XR CHEST 1V, 12/26/2024, 17:53. [facility], CR, XR CHEST 1V, 01/31/2025, 15:09. [facility], CR, XR CHEST 1V, 02/07/2025, 16:42. FINDINGS: Surgical changes and devices: A right-sided AICD is seen. The leads are seen in stable positions. Sternotomy wires and mediastinal clips are seen. Lungs and pleura: Mild generalized interstitial prominence can be seen. No pleural effusions or pneumothorax. Mediastinum: Mediastinal contours appear normal. Heart size is moderately enlarged. Atherosclerotic calcification of the aortic arch is noted. Bones and chest wall: No suspicious bony lesions. Age-appropriate bony degenerative changes are seen. There is right shoulder calcific arthropathy. IMPRESSION: Cardiomegaly and interstitial prominence. Mild CHF is suspected. Postoperative and degenerative changes are seen. Dictated by: Real Quintero M.D. on 04/19/2025 at 10:18 Approved by: Real Quintero M.D. on 04/19/2025 at 10:19
--- NOTE | 2025-04-19 10:45 | ED.SOB ---
HPI - SOB/Dyspnea General Chief Complaint: Shortness of Breath/Dyspnea Stated Complaint: Cough, SOB, anxiety Time Seen by Provider: 04/19/25 10:13 Source: patient and EMS Mode of arrival: EMS Limitations: no limitations History of Present Illness HPI Narrative: 69-year-old female history of end-stage congestive heart failure with EF 10%, pulmonary embolism on Eliquis, GERD. Patient presents with a complaint of increased shortness of breath, some orthopnea nonproductive cough. States symptoms started around Wednesday, states she has chronic shortness of breath but this has a little bit worse recently. States it is very similar to when she feels like she is overloaded with the fluids. Patient denies any chest pain or pressure. No syncope she has felt little lightheaded. She has had some nausea. No vomiting. Notes some chronic constipation but has been having bowel movements. She has noticed increased swelling in her lower extremities. She states no new medication changes recently. Continues take her Eliquis daily he continues to be on diuretics. 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 No known drug allergies. Former smoker, denies any daily alcohol or recreational street drugs. Patient lives at [facility]. Dr. Merritt is her primary care physician. She follows with a [facility]. She notes she is a DNR/DNI. Related Data Home Medications ?Medication ?Instructions ?Recorded ?Confirmed acetaminophen 325 mg tablet 650 mg PO Q6H PRN Pain, Mild 07/26/24 03/21/25 buspirone 15 mg tablet 15 mg PO BID 07/26/24 03/21/25 empagliflozin 10 mg tablet 10 mg PO DAILY 07/26/24 03/21/25 magnesium hydroxide 400 mg/5 mL 400 mg PO BEDTIME PRN Constipation 07/26/24 03/21/25 oral suspension nitroglycerin 0.4 mg sublingual 0.4 mg sublingual Q5-15M PRN Chest 07/26/24 03/21/25 tablet Pain nortriptyline 25 mg capsule 50 mg PO BEDTIME 07/26/24 03/21/25 omeprazole 20 mg tablet,delayed 20 mg PO DAILY 07/26/24 03/21/25 release ondansetron 4 mg disintegrating 4 mg PO Q6H PRN Nausea 07/26/24 03/21/25 tablet spironolactone 25 mg tablet 25 mg PO DAILY 07/26/24 03/21/25 torsemide 20 mg tablet 60 mg PO DAILY 07/26/24 03/21/25 trazodone 50 mg tablet 150 mg PO BEDTIME PRN Insomnia 07/26/24 03/21/25 venlafaxine 75 mg tablet,extended 225 mg PO DAILY 07/26/24 03/21/25 release 24 hr albuterol sulfate 90 mcg/actuation 2 puff inhalation Q4H PRN Wheezing 10/19/24 03/21/25 aerosol inhaler apixaban 5 mg tablet (Eliquis) 5 mg PO BID 10/19/24 03/21/25 aspirin 81 mg tablet,delayed 81 mg PO DAILY 10/19/24 03/21/25 release diclofenac sodium 1 % topical gel 2 g topical QID 10/19/24 03/21/25 sacubitril 24 mg-valsartan 26 mg 1 tab PO BID PRN hypotension 10/19/24 03/21/25 tablet (Entresto) Previous Rx's ?Medication ?Instructions ?Recorded torsemide 20 mg tablet 20 mg PO DAILY #3 tabs 04/19/25 Allergies Allergy/AdvReac Type Severity Reaction Status Date / Time divalproex sodium (From AdvReac Verified 04/19/25 10:18 Depakote) metoprolol AdvReac Nausea Verified 04/19/25 10:18 sertraline (From Zoloft) AdvReac Nausea Verified 04/19/25 10:18 sumatriptan AdvReac Palpitation Verified 04/19/25 10:18 s Review of Systems Review of Systems ROS Unobtainable: All systems reviewed & are unremarkable except as noted in HPI and below Patient History Social History household members: other Smoking Status: Former smoker Smoking Status: Former smoker Exam Narrative Exam Narrative: GENERAL: Alert and oriented x three, female in mild distress HEENT: Head normocephalic, atraumatic, EOMI, pupils reactive, face symmetric, moist mucous membranes NECK: Supple, full range of motion CARDIOVASCULAR: Regular rate and rhythm without murmurs, rubs or gallops. No JVD. Trace edema bilateral lower extremities. RESPIRATORY: Breath sounds equal bilaterally, no wheezes rales or rhonchi. No tachypnea accessory muscle use. Patient does feel more comfortable upright. Patient's speaks in full sentences. ABDOMEN: Soft, nontender. Normoactive bowel sounds all 4 quadrants. No guarding or rebound, rigidity, no mass : No CVA tenderness EXTREMITIES: Normal range of motion, no clubbing. Neurovascularly intact NEUROLOGICAL: Cranial nerves II through XII grossly intact. Moving all extremities SKIN: Warm, dry, no petechiae, no rashes or lesions. Initial Vital Signs Initial Vital Signs: Vital Signs Pulse Rate 100 H 04/19/25 10:12 Pulse Oximetry 96 04/19/25 10:12 Course Orders Ordered: ED Orders 04/19/25 10:00 Complete Blood Count AUTO DIFF Stat Comprehensive Metabolic Panel Stat Lactate (Lactic Acid) Stat NT-proBNP (BNP-Adult 18+) Stat Prothrombin Time INR Stat Troponin I Stat 04/19/25 10:35 EKG-12 Lead Stat 04/19/25 10:36 XR chest 1V Stat Measure peak expiratory flow STAT RT Consult Eval and Treat STAT 04/19/25 12:00 Trop I [Troponin I] Stat 04/19/25 12:04 EKG-12 Lead Routine Discontinued Medications Furosemide 80 mg/ Sodium (Chloride) 58 mls @ 116 mls/hr IV NOW ONE Stop: 04/19/25 11:46 Last Infusion: 04/19/25 12:40 Dose: Infused Documented By: Admin: 04/19/25 12:06 Dose: 116 mls/hr Documented By: RICCI Vital Signs Vital signs: Vital Signs - 8 hr 04/19/25 10:30 04/19/25 10:48 04/19/25 10:48 Pulse Rate 102 H 102 H Respiratory Rate 24 23 Blood Pressure 96/71 Pulse Oximetry 96 Oxygen Delivery Method Room Air 04/19/25 11:00 04/19/25 11:30 04/19/25 11:32 Pulse Rate 101 H 101 H Respiratory Rate 25 H 21 Blood Pressure 100/70 Pulse Oximetry 96 91 Oxygen Delivery Method 04/19/25 11:32 04/19/25 11:54 04/19/25 11:54 Pulse Rate 101 H 102 H Respiratory Rate 30 H 27 H Blood Pressure 104/63 Pulse Oximetry 95 99 Oxygen Delivery Method Room Air 04/19/25 12:00 04/19/25 12:01 04/19/25 12:01 Pulse Rate 99 H 98 H Respiratory Rate 24 24 Blood Pressure 109/75 Pulse Oximetry 96 95 Oxygen Delivery Method 04/19/25 12:30 04/19/25 12:30 04/19/25 13:00 Pulse Rate 100 H 101 H Respiratory Rate 24 18 Blood Pressure 109/68 Pulse Oximetry 94 Oxygen Delivery Method 04/19/25 13:30 04/19/25 14:00 04/19/25 14:00 Pulse Rate 100 H 98 H Respiratory Rate Blood Pressure 97/53 L Pulse Oximetry 98 97 Oxygen Delivery Method 04/19/25 14:28 04/19/25 14:30 Pulse Rate 99 H Respiratory Rate Blood Pressure 104/68 Pulse Oximetry Oxygen Delivery Method MDM - SOB/Dyspnea Lab Data 04/19/25 10:00 04/19/25 10:00 Labs: Lab Results 04/19/25 04/19/25 04/19/25 Range/Units 10:00 12:00 12:47 WBC 8.4 (4.5-11.0) X10^3/uL RBC 4.92 (4.0-5.2) X10^6/uL Hgb 10.9 L (12.0-16.0) g/dL Hct 36.1 (36-46) % MCV 73.4 L (80-100) fL MCH 22.1 L (26-34) PG MCHC 30.1 (30-36) % RDW 22.4 H (11.6-14.8) % Plt Count 231 (150-400) X10^3/uL Neut % (Auto) 71.7 (50-75) % Lymph % (Auto) 16.4 L (25-40) % Hartley % (Auto) 8.1 (3-14) % Eos % (Auto) 2.9 (2-4) % Baso % (Auto) 0.9 (0-2) % Neut # (Auto) 6000 (1835-0084) /uL Lymph # (Auto) 1400 (7151-2527) /uL Hartley # (Auto) 700 (0-900) /uL Eos # (Auto) 200 (0-450) /uL Baso # (Auto) 100 (0-100) /uL Platelet Estimate Adequate on smear RBC Morphology See below Anisocytosis 2+ H Microcytosis 1+ H PT 19.6 H (9.4-12.5) SECONDS INR 1.8 H (0.9-1.3) Sodium 134 L (137-145) mmol/L Potassium 4.5 (3.4-5.1) mmol/L Chloride 91 L (98-107) mmol/L Carbon Dioxide 30 (22-32) mmol/L BUN 50 H (7-17) mg/dL Creatinine 1.56 H (0.52-1.04) mg/dL Estimated GFR 36 L (>60) mL/min BUN/Creatinine Ratio 32.1 H (6-22) Glucose 156 H (70-99) mg/dL Lactate 3.5 H 2.0 (0.7-2.1) mmol/L Calcium 8.5 (8.4-10.2) mg/dL Total Bilirubin 0.5 (0.2-1.3) mg/dL AST 32 (14-36) IU/L ALT 23 (<35) IU/L Alkaline Phosphatase 101 (38-126) U/L Troponin I 0.108 H 0.103 H (0.01-0.034) ng/mL NT-Pro-B Natriuret Pep 53164 H (<125) pg/mL Total Protein 6.8 (6.3-8.2) g/dL Albumin 4.1 (3.5-5.0) g/dL Globulin 2.7 (1.7-4.1) g/dL Albumin/Globulin Ratio 1.5 (1.0-2.8) Urine Dip Bedside Urine Glucose 1000 mg/dl Bedside Urine Bilirubin - Negative Bedside Urine Ketone - Negative Urine Specific Dalhart 1.010 Bedside Urine Occult Blood - Negative Bedside Urine pH 6.5 Bedside Urine Protein - Negative Bedside Urine Urobilinogen - Negative Bedside Urine Nitrite - Negative Bedside Urine Leukocytes - Negative Esterase ECG Data Attestation: I personally reviewed and interpreted this ECG as follows: Prior ECG tracings: available for review Interpretation: Ventricularly paced rhythm, rate of 103 QRS of 174 QTC of 571. Patient's EKG appears similar from 03/20/2025. Ventricularly paced rhythm, rate of 98, QRS of 184 QTC of 571. MDM Narrative Medical decision making narrative: EKG shows ventricularly paced rhythm rate of 103 similar to prior March 20, 2025. No dynamic changes Labs show white count of 8.4 hemoglobin is 10.9 consistent with priors in March and February, microcytic, platelets are 231. Coags Creatinine is 1.56 looks like this is close to patient's baseline she ranges between 1.3 and 1.6 most consistently BUN 50 sodium is 134 with a chloride 91 potassium is 4 5 with a CO2 of 30, glucose is 156 lactate is 3.5 on repeat is 2. troponin is 0.108, BNP 13,500 patient ranges between 8000 and September 2019 and 20,000 in October of 2024.. Repeat troponin is 0.103 patient is typically chronically elevated. Chest x-ray shows cardiomegaly and interstitial prominence mild CHF suspected. Postop degenerative changes seen. Patient was noted to have a blood pressure in the 90s looks like she has fairly consistently 90-100 range on visits back through February and into July of 2024. Patient also indicates that this is her normal blood pressure. She also states she is typically mildly tachycardic which is also consistent with prior vitals. Patient received Lasix. Patient diuresed here in the department without issue up and down from the bed using bedside commode independently. Discussed with the patient she states she is on 100 mg of torsemide daily, sounds like she is also on spironolactone 25mg daily, metolazone 2.5 mg Wednesday as well as during his 10 mg, on Entresto 24/26 mg for blood pressure and diuretics. Confirmed with cypress medication list. Patient follows with Cardiology through [facility], because of her cardiac history and end-stage CHF reached out for any direction on her diuretics. Page out to cardiology [id number], no call back after multiple pages. Discussed with patient, short term adjustement of her torsemide with short term. Discharge Plan Departure Patient Disposition: Home Clinical Impression: CHF (congestive heart failure) Instructions: DI for Heart Failure Activity Restrictions/Additional Instructions: Follow up with your physician in the short term for recheck of your renal function and adjustment of your medication. Increase your torsemide dose to 6 tablets daily x 3 days then return to 5 tablets daily. Take your next dose tomorrow. Continue your other home medications as prescribed. Please return for new or worsening symptoms, new chest pain or shortness of breath, increasing swelling, lightheadedness or passing out, vomiting or other new or concerning changes. Prescriptions: New torsemide 20 mg tablet 20 mg PO DAILY Qty: 3 0RF No Action acetaminophen 325 mg Tablet 650 mg PO Q6H PRN (Reason: Pain, Mild) torsemide 20 mg Tablet 60 mg PO DAILY Rx Instructions: to start this dose tomorrow 10/20/24 trazodone 50 mg Tablet 150 mg PO BEDTIME PRN (Reason: Insomnia) spironolactone 25 mg Tablet 25 mg PO DAILY nortriptyline 25 mg Capsule 50 mg PO BEDTIME magnesium hydroxide 400 mg/5 mL Suspension 400 mg PO BEDTIME PRN (Reason: Constipation) nitroglycerin 0.4 mg Tablet, Sublingual 0.4 mg SUBLINGUAL Q5-15M PRN (Reason: Chest Pain) Rx Instructions: do not exceed 3 doses per episode ondansetron 4 mg Tablet,Disintegrating 4 mg PO Q6H PRN (Reason: Nausea) buspirone 15 mg Tablet 15 mg PO BID omeprazole 20 mg Tablet,Delayed Release (Dr/Ec) 20 mg PO DAILY venlafaxine 75 mg Tablet Extended Release 24hr 225 mg PO DAILY empagliflozin 10 mg Tablet 10 mg PO DAILY Entresto 24-26 mg Tablet 1 tab PO BID PRN (Reason: hypotension) Rx Instructions: just prescribed today 10/19/24 has not started yet aspirin 81 mg tablet,delayed release (DR/EC) 81 mg PO DAILY albuterol sulfate 90 mcg/actuation HFA aerosol inhaler 2 puff inhalation Q4H PRN (Reason: Wheezing) diclofenac sodium 1 % Gel 2 g TOPICAL QID Rx Instructions: apply to single elbow, wrist or hand; for hand includes palm/fingers/back of hand Eliquis 5 mg tablet 5 mg PO BID Referrals: Justino Fajardo MD [Primary Care Provider, Family Practice] Stand Alone Forms: Patient Portal/API
[2025-04-19 10:50] LABS: Add Manual Diff / Slide Review NO; Hematocrit 36.1 % (36-46); Hemoglobin 10.9 g/dL (12.0-16.0); INR 1.8 (0.9-1.3); Lymphocytes Absolute Auto 1400 /uL (1100-4500); Mean Corpuscular HGB Conc 30.1 % (30-36); Mean Corpuscular Hemoglobin 22.1 PG (26-34); Mean Corpuscular Volume 73.4 fL (80-100); Platelet Count 231 X10^3/uL (150-400); Prothrombin Time 19.6 SECONDS (9.4-12.5)
[2025-04-19 10:55] LABS: Alanine Aminotransferase 23 IU/L (<35); Albumin 4.1 g/dL (3.5-5.0); Albumin Globulin Ratio 1.5 (1.0-2.8); Alkaline Phosphatase 101 U/L (38-126); Blood Urea Nitrogen 50 mg/dL (7-17); Calcium 8.5 mg/dL (8.4-10.2); Carbon Dioxide 30 mmol/L (22-32); Chloride 91 mmol/L (98-107); Estimated Glomerular Filt Rate 36 mL/min (>60); Globulin 2.7 g/dL (1.7-4.1); Glucose 156 mg/dL (70-99); HEMOLYSIS 16 (0-50); Potassium 4.5 mmol/L (3.4-5.1); Sodium 134 mmol/L (137-145); Total Protein 6.8 g/dL (6.3-8.2)
[2025-04-19 10:56] LABS: Lactate (Lactic Acid) 3.5 mmol/L (0.7-2.1)
[2025-04-19 11:07] LABS: NT-proBNP (BNP-Adult 18+) 13500 pg/mL (<125); Troponin I 0.108 ng/mL (0.01-0.034)
--- NOTE | 2025-04-19 12:04 | EKG_ITS ---
[address] [address] Test Date: 2025-04-19 Pat Name: Mone Erazo Department: Room: Gender: Female [employer]: LUNA : 1955 Requested By: Order Number: [id number] Reading MD: Stevan Lara MD Measurements Intervals [place] Rate: 98 P: 90 [place]: QRS: 211 QRSD: 184 T: 197 QT: 448 QTc: 571 Interpretive Statements Ventricular-paced rhythm Electronically Signed On 04-23-2025 7:43:38 PDT by Stevan Lara MD
[2025-04-19] MEDS: FUROSEMIDE 80 MG in SODIUM CHLORIDE 0.9% 50 ML 116 MG IV (12:06)
[2025-04-19 12:21] LABS: Reflexed Lactate in 2 Hours Y
[2025-04-19 12:23] LABS: Anisocytosis 2+; Microcytosis 1+
[2025-04-19 12:45] LABS: Troponin I 0.103 ng/mL (0.01-0.034)
[2025-04-19 13:06] LABS: Lactate 2HR (Lactic Acid Rflx) 2.0 mmol/L (0.7-2.1)
== END 2025-04-19 14:45 | disposition home or self-care (01) ==
PROVIDERS: Emergency Provider Emergency Medicine; PCP Family Medicine
DX: I50.9 Heart failure, unspecified (principal); R11.0 Nausea; Z86.711 Personal history of pulmonary embolism; Z79.01 Long term (current) use of anticoagulants
CPT/HCPCS: 36415; 71045; 80053; 81003; 83605; 83880; 84484; 85025; 85610; 93005; 96365; 99284; J1938